=== PATIENT | male | born 1975 | race Caucasian/White ===

== ENCOUNTER 2017-01-03 09:01 | Inpatient (IN) ==
--- NOTE | 2017-01-03 09:24 | Emergency Department Note ---
Overdose - [facility] Narrative Medical decision making narrative: 41-year-old male initially unresponsive, found to have severe sepsis with lactate 2.1, tachycardia, leukocytosis, source being upper lobe pneumonia, patient was given a 30 mL for kg bolus, repeat cardiovascular assessment was obtained a severe sepsis assessment was obtained, demonstrating fluid responsiveness, no dictation for vasopressors, patient was started on empiric broad-spectrum antibiotics and stabilized the emergency department excepted by the hospitalist for admission - Differential Diagnosis Likely: cocaine intoxication - Medical Records Medical records reviewed: Yes I reviewed the patient's medical records. - Lab Data Lab results reviewed: Yes I reviewed the patient's lab results. Result diagrams: 01/03/17 09:32 01/03/17 09:32 Lab Results 01/03/17 01/03/17 01/03/17 Range/Units 09:32 09:32 09:32 WBC 12.3 H (4.3-11.1) K/mcL RBC 5.32 (4.19-5.50) M/mcL Hgb 16.0 (12.9-16.9) g/dL Hct 48.8 (37.5-50.1) % MCV 91.7 (83.0-100.0) fL MCH 30.1 (28.0-33.3) pg MCHC 32.8 (31.6-35.5) g/dL RDW 12.4 (11.5-14.5) % Plt Count 285 (140-400) K/mcL MPV 10.5 (9.4-12.4) fL Immature Gran % 0.7 (0-4) % Seg Neutrophils % 81.2 % Lymphocytes % 12.2 % Monocytes % 5.1 % Eosinophils % 0.3 % Basophils % 0.5 % Neutrophils # 10.0 H (1.6-8.9) K/mcL Lymphocytes # 1.5 (0.6-4.6) K/mcL Monocytes # 0.6 (0.0-1.3) K/mcL Eosinophils # 0.0 (0.0-0.6) K/mcL Basophils # 0.1 (0.0-0.2) K/mcL Immature Plt Fraction 6.4 H (1.1-6.1) % Carboxyhemoglobin (0-5) % Sodium 143 (136-145) mEq/L Potassium 4.4 (3.5-4.5) mEq/L Chloride 107 (98-109) mEq/L Carbon Dioxide 28 (19-29) mEq/L BUN 8 (8-26) mg/dL Creatinine 1.36 H (0.72-1.25) mg/dL Est GFR ( Amer) > 60 (> 60) Est GFR (Non-Af Amer) 58 L (> 60) BUN/Creatinine Ratio 6 (6-26) Glucose 188 H (70-99) mg/dL POC Glucose (58-89) Calculated Osmolality 299 (280-300) Lactic Acid 2.1 (0.5-2.2) mmol/L Calcium 8.6 (8.6-10.8) mg/dL Total Bilirubin 0.4 (0.2-1.2) mg/dL Direct Bilirubin 0.1 (0.0-0.5) mg/dL Indirect Bilirubin 0.3 (0.0-1.2) mg/dL AST 25 (5-34) Units/L ALT 22 (0-55) Units/L Alkaline Phosphatase 137 H (38-126) Units/L Troponin I (0-0.03) ng/mL Serum Total Protein 7.2 (6.0-8.3) g/dL Albumin 3.6 (3.5-5.0) g/dL Globulin 3.6 H (2.4-3.5) g/dL Albumin/Globulin Ratio 1.0 L (1.1-2.2) Urine Color (Yellow) Urine Clarity (Clear) Urine pH (5.0-8.0) pH Units Ur Specific [place] (1.010-1.025) Urine Protein (Neg-Trace) mg/dL Urine Glucose (UA) (Normal) mg/dL Urine Ketones (Negative) mg/dL Urine Blood (Negative) Urine Nitrite (Negative) Urine Bilirubin (Negative) Urine Urobilinogen (Normal) mg/dL Ur Leukocyte Esterase (Negative) Urine Microscopic RBC (0-3) per hpf Urine Microscopic WBC (0-3) per hpf Ur Squamous Epith Cells (None-Few) per lpf Urine Bacteria (None-Few) per hpf Hyaline Casts (None-Few) per lpf Salicylates < 5.0 L (15-30) mg/dL Urine Opiates Screen (Gihots=326) ng/mL Acetaminophen < 1.0 L (10-30) mcg/mL Ur Barbiturates Screen (Sfilgv=277) ng/mL Ur Phencyclidine Scrn (Cutoff=25) ng/mL Ur Amphetamines Screen (Dtruwh=6544) ng/mL U Benzodiazepines Scrn (Yrmhfz=087) ng/mL Urine Cocaine Screen (Cutoff= 300) ng/mL U Marijuana (THC) Screen (Cutoff = 50) ng/mL Ethyl Alcohol < 10 (0-10) mg/dL 01/03/17 01/03/17 01/03/17 Range/Units 09:32 09:32 10:23 WBC (4.3-11.1) K/mcL RBC (4.19-5.50) M/mcL Hgb (12.9-16.9) g/dL Hct (37.5-50.1) % MCV (83.0-100.0) fL MCH (28.0-33.3) pg MCHC (31.6-35.5) g/dL RDW (11.5-14.5) % Plt Count (140-400) K/mcL MPV (9.4-12.4) fL Immature Gran % (0-4) % Seg Neutrophils % % Lymphocytes % % Monocytes % % Eosinophils % % Basophils % % Neutrophils # (1.6-8.9) K/mcL Lymphocytes # (0.6-4.6) K/mcL Monocytes # (0.0-1.3) K/mcL Eosinophils # (0.0-0.6) K/mcL Basophils # (0.0-0.2) K/mcL Immature Plt Fraction (1.1-6.1) % Carboxyhemoglobin 2.7 (0-5) % Sodium (136-145) mEq/L Potassium (3.5-4.5) mEq/L Chloride (98-109) mEq/L Carbon Dioxide (19-29) mEq/L BUN (8-26) mg/dL Creatinine (0.72-1.25) mg/dL Est GFR ( Amer) (> 60) Est GFR (Non-Af Amer) (> 60) BUN/Creatinine Ratio (6-26) Glucose (70-99) mg/dL POC Glucose 120 H (58-89) Calculated Osmolality (280-300) Lactic Acid (0.5-2.2) mmol/L Calcium (8.6-10.8) mg/dL Total Bilirubin (0.2-1.2) mg/dL Direct Bilirubin (0.0-0.5) mg/dL Indirect Bilirubin (0.0-1.2) mg/dL AST (5-34) Units/L ALT (0-55) Units/L Alkaline Phosphatase (38-126) Units/L Troponin I 0.06 H* (0-0.03) ng/mL Serum Total Protein (6.0-8.3) g/dL Albumin (3.5-5.0) g/dL Globulin (2.4-3.5) g/dL Albumin/Globulin Ratio (1.1-2.2) Urine Color (Yellow) Urine Clarity (Clear) Urine pH (5.0-8.0) pH Units Ur Specific [place] (1.010-1.025) Urine Protein (Neg-Trace) mg/dL Urine Glucose (UA) (Normal) mg/dL Urine Ketones (Negative) mg/dL Urine Blood (Negative) Urine Nitrite (Negative) Urine Bilirubin (Negative) Urine Urobilinogen (Normal) mg/dL Ur Leukocyte Esterase (Negative) Urine Microscopic RBC (0-3) per hpf Urine Microscopic WBC (0-3) per hpf Ur Squamous Epith Cells (None-Few) per lpf Urine Bacteria (None-Few) per hpf Hyaline Casts (None-Few) per lpf Salicylates (15-30) mg/dL Urine Opiates Screen (Bktqch=926) ng/mL Acetaminophen (10-30) mcg/mL Ur Barbiturates Screen (Kbcigt=049) ng/mL Ur Phencyclidine Scrn (Cutoff=25) ng/mL Ur Amphetamines Screen (Ickqjo=2043) ng/mL U Benzodiazepines Scrn (Yffqwu=724) ng/mL Urine Cocaine Screen (Cutoff= 300) ng/mL U Marijuana (THC) Screen (Cutoff = 50) ng/mL Ethyl Alcohol (0-10) mg/dL 01/03/17 01/03/17 01/03/17 Range/Units 12:26 12:26 14:23 WBC (4.3-11.1) K/mcL RBC (4.19-5.50) M/mcL Hgb (12.9-16.9) g/dL Hct (37.5-50.1) % MCV (83.0-100.0) fL MCH (28.0-33.3) pg MCHC (31.6-35.5) g/dL RDW (11.5-14.5) % Plt Count (140-400) K/mcL MPV (9.4-12.4) fL Immature Gran % (0-4) % Seg Neutrophils % % Lymphocytes % % Monocytes % % Eosinophils % % Basophils % % Neutrophils # (1.6-8.9) K/mcL Lymphocytes # (0.6-4.6) K/mcL Monocytes # (0.0-1.3) K/mcL Eosinophils # (0.0-0.6) K/mcL Basophils # (0.0-0.2) K/mcL Immature Plt Fraction (1.1-6.1) % Carboxyhemoglobin (0-5) % Sodium (136-145) mEq/L Potassium (3.5-4.5) mEq/L Chloride (98-109) mEq/L Carbon Dioxide (19-29) mEq/L BUN (8-26) mg/dL Creatinine (0.72-1.25) mg/dL Est GFR ( Amer) (> 60) Est GFR (Non-Af Amer) (> 60) BUN/Creatinine Ratio (6-26) Glucose (70-99) mg/dL POC Glucose (58-89) Calculated Osmolality (280-300) Lactic Acid 1.7 (0.5-2.2) mmol/L Calcium (8.6-10.8) mg/dL Total Bilirubin (0.2-1.2) mg/dL Direct Bilirubin (0.0-0.5) mg/dL Indirect Bilirubin (0.0-1.2) mg/dL AST (5-34) Units/L ALT (0-55) Units/L Alkaline Phosphatase (38-126) Units/L Troponin I (0-0.03) ng/mL Serum Total Protein (6.0-8.3) g/dL Albumin (3.5-5.0) g/dL Globulin (2.4-3.5) g/dL Albumin/Globulin Ratio (1.1-2.2) Urine Color Yellow (Yellow) Urine Clarity Clear (Clear) Urine pH 6.0 (5.0-8.0) pH Units Ur Specific [place] 1.021 (1.010-1.025) Urine Protein Trace (Neg-Trace) mg/dL Urine Glucose (UA) 250 H (Normal) mg/dL Urine Ketones Negative (Negative) mg/dL Urine Blood Negative (Negative) Urine Nitrite Negative (Negative) Urine Bilirubin Negative (Negative) Urine Urobilinogen Normal (Normal) mg/dL Ur Leukocyte Esterase Negative (Negative) Urine Microscopic RBC 0-3 (0-3) per hpf Urine Microscopic WBC 3-5 H (0-3) per hpf Ur Squamous Epith Cells Many H (None-Few) per lpf Urine Bacteria None Seen (None-Few) per hpf Hyaline Casts Few (None-Few) per lpf Salicylates (15-30) mg/dL Urine Opiates Screen Positive H (Svuuma=326) ng/mL Acetaminophen (10-30) mcg/mL Ur Barbiturates Screen Negative (Jlnawn=063) ng/mL Ur Phencyclidine Scrn Negative (Cutoff=25) ng/mL Ur Amphetamines Screen Positive H (Hpweuu=5979) ng/mL U Benzodiazepines Scrn Negative (Mmkhph=218) ng/mL Urine Cocaine Screen Negative (Cutoff= 300) ng/mL U Marijuana (THC) Screen Negative (Cutoff = 50) ng/mL Ethyl Alcohol (0-10) mg/dL 01/03/17 Range/Units 15:51 WBC (4.3-11.1) K/mcL RBC (4.19-5.50) M/mcL Hgb (12.9-16.9) g/dL Hct (37.5-50.1) % MCV (83.0-100.0) fL MCH (28.0-33.3) pg MCHC (31.6-35.5) g/dL RDW (11.5-14.5) % Plt Count (140-400) K/mcL MPV (9.4-12.4) fL Immature Gran % (0-4) % Seg Neutrophils % % Lymphocytes % % Monocytes % % Eosinophils % % Basophils % % Neutrophils # (1.6-8.9) K/mcL Lymphocytes # (0.6-4.6) K/mcL Monocytes # (0.0-1.3) K/mcL Eosinophils # (0.0-0.6) K/mcL Basophils # (0.0-0.2) K/mcL Immature Plt Fraction (1.1-6.1) % Carboxyhemoglobin (0-5) % Sodium (136-145) mEq/L Potassium (3.5-4.5) mEq/L Chloride (98-109) mEq/L Carbon Dioxide (19-29) mEq/L BUN (8-26) mg/dL Creatinine (0.72-1.25) mg/dL Est GFR ( Amer) (> 60) Est GFR (Non-Af Amer) (> 60) BUN/Creatinine Ratio (6-26) Glucose (70-99) mg/dL POC Glucose (58-89) Calculated Osmolality (280-300) Lactic Acid (0.5-2.2) mmol/L Calcium (8.6-10.8) mg/dL Total Bilirubin (0.2-1.2) mg/dL Direct Bilirubin (0.0-0.5) mg/dL Indirect Bilirubin (0.0-1.2) mg/dL AST (5-34) Units/L ALT (0-55) Units/L Alkaline Phosphatase (38-126) Units/L Troponin I 0.11 H* (0-0.03) ng/mL Serum Total Protein (6.0-8.3) g/dL Albumin (3.5-5.0) g/dL Globulin (2.4-3.5) g/dL Albumin/Globulin Ratio (1.1-2.2) Urine Color (Yellow) Urine Clarity (Clear) Urine pH (5.0-8.0) pH Units Ur Specific [place] (1.010-1.025) Urine Protein (Neg-Trace) mg/dL Urine Glucose (UA) (Normal) mg/dL Urine Ketones (Negative) mg/dL Urine Blood (Negative) Urine Nitrite (Negative) Urine Bilirubin (Negative) Urine Urobilinogen (Normal) mg/dL Ur Leukocyte Esterase (Negative) Urine Microscopic RBC (0-3) per hpf Urine Microscopic WBC (0-3) per hpf Ur Squamous Epith Cells (None-Few) per lpf Urine Bacteria (None-Few) per hpf Hyaline Casts (None-Few) per lpf Salicylates (15-30) mg/dL Urine Opiates Screen (Kcaros=522) ng/mL Acetaminophen (10-30) mcg/mL Ur Barbiturates Screen (Bwacpx=650) ng/mL Ur Phencyclidine Scrn (Cutoff=25) ng/mL Ur Amphetamines Screen (Adbhmc=0076) ng/mL U Benzodiazepines Scrn (Jptslt=749) ng/mL Urine Cocaine Screen (Cutoff= 300) ng/mL U Marijuana (THC) Screen (Cutoff = 50) ng/mL Ethyl Alcohol (0-10) mg/dL Chest X-Ray 01/03/17 09:16 IMPRESSION: Patchy opacities in the right upper lung, which may represent pneumonia in the appropriate clinical setting. D/ / Mariella Rodriguez MD / Mariella Rodriguez MD Interpreting Provider: Mariella Rodriguez MD Chest CTA 01/03/17 13:15 IMPRESSION: No evidence of pulmonary embolism to the proximal segmental level. Extensive consolidative and ground-glass opacity throughout both lungs as detailed above. Findings are most compatible with multifocal pneumonia. Some of the opacities are somewhat nodular in appearance, and a follow-up examination in 10-12 weeks is recommended to document complete resolution. D/ / Deep Calderon MD / Deep Calderon MD Interpreting Provider: Deep Calderon MD - Radiology Data Radiology results reviewed: Yes I reviewed the patient's radiology results. Chest X-Ray 01/03/17 09:16 IMPRESSION: Patchy opacities in the right upper lung, which may represent pneumonia in the appropriate clinical setting. D/ / Mariella Rodriguez MD / Mariella Rodriguez MD Interpreting Provider: Mariella Rodriguez MD Chest CTA 01/03/17 13:15 IMPRESSION: No evidence of pulmonary embolism to the proximal segmental level. Extensive consolidative and ground-glass opacity throughout both lungs as detailed above. Findings are most compatible with multifocal pneumonia. Some of the opacities are somewhat nodular in appearance, and a follow-up examination in 10-12 weeks is recommended to document complete resolution. D/ / Deep Calderon MD / Deep Calderon MD Interpreting Provider: Deep Calderon MD - EKG Data EKG attestation: Yes I reviewed and interpreted this EKG. EKG results narrative: Sinus tachycardia 10 5 bpm NE 142 QRS [address] segment elevations or depressions. Rate: tachycardia [place]/QRS: normal Interpretation: no acute changes - Core Measures AMI Core Measures Followed: No Overdose HPI - General Chief Complaint: ED Overdose Stated Complaint: OD/Unresponsive Time Seen by Provider: 01/03/17 09:07 Source: patient Limitations: no limitations Nursing Notes Reviewed: Yes Vital Signs Reviewed: Yes - History of Present Illness HPI Narrative: 41-year-old male with an unresponsive episode, patient was found obtunded and altered, diaphoretic and his seat in his chair at home, EMS arrived at the scene , they did give him IV Narcan 2 mg, he had a slow response to Narcan but did ultimately become alert and oriented 3, however somewhat confused, patient uses Percocet at 30 mg the night before, but states that he does not use any pain medication today, this is partially obtained by EMS as he is alert and oriented 2 at time of ED evaluation. he denies any chest pain or abdominal pain. Patient states he is unsure when the last time that he has been awake, but he woke up, his mom saw him at approximately 5 in the morning, then he sat on the chair. She then woke him up at 8 or tried to and he was unresponsive. And she called EMS. Pt denies any drug use today, he did take a Percocet last night, but denies any IV drug use or other illicit substances this morning. Pt Subjective Complaint: intentional overdose Onset (ago): hour(s) - Related Data Home Medications Medication Instructions Recorded Confirmed Acetaminophen [Tylenol] 1,000 mg PO BID PRN 05/23/16 01/03/17 Ibuprofen [Motrin] 800 mg PO Q6HR PRN 01/03/17 01/03/17 Allergies Allergy/AdvReac Type Severity Reaction Status Date / Time Penicillins Allergy Hives Verified 11/13/16 07:49 All systems ED: reviewed and negative except as stated. Constitutional: Denies: fever, chills Cardiovascular: Denies: chest pain, palpitations Respiratory: Reports: as per HPI, dyspnea, wheezes. Denies: cough Gastrointestinal: Denies: abdominal pain, nausea Genitourinary: Denies: urgency, dysuria Musculoskeletal: Denies: back pain, neck pain Integumentary: Denies: rash Neurological: Denies: headache, weakness Past Medical History - Past Medical History Attestation: Yes The following information was validated with the patient. Source: patient Medical history: Reports: no medical history Surgical history: Reports: orthopedic, other, other Psychiatric history: Reports: anxiety, depression, other - Social History Smoking Status: Never smoker Smokeless Tobacco Status: No Alcohol use: Reports: occasionally Drug use: Reports: cocaine, opiates, methamphetamine, prescription drug abuse, other Physical Exam Constitutional: Pt is alert and oriented 2, hypoxic. Lethargic sats 80% on RA HEENT: NCAT, sclera anicteric Neck: normal inspection, neck is supple, trachea midline Resp: Patient is short of breath and tachypneic. CV: RRR, no m/g/r GI: normal inspection, Soft, NTND, BS present Back: normal inspection, no tenderness to palpation Neuro: A&O2, no gross motor or sensory deficits bilaterally MSK: normal inspection, bilateral UE and LE with normal ROM Skin: No rashes, skin warm, dry, intact - General Limitations: no limitations General appearance: alert, lethargic Course Course Narrative: 41-year-old male with unresponsive on ED presentation, there is a concern for possible overdose as he did have an indeterminate response to Narcan IV 2 mg was given by EMS, however the patient now presents with hypoxia, satting 80% on room air, will check a blood gas, basic lab work CBC, hepatic panel, for altered mental status workup, chest x-ray head CT and reassess. - Reevaluation(s) Reevaluation #1: Even though the patient initially presented as an overdose, EMS did state that he was found diaphoretic and sweaty, he does have a elevated troponin and lactate of 2.1 he also has a patchy opacity concerning for pneumonia, with an elevated white count therefore at this time 11:36 recognizing severe sepsis, will start at 30 mL/kg 3000 cc bolus, blood cultures prior to lactate and draw a repeat lactate prior to the reassessment. Reevaluation #2: A reevaluation, the patient was performed, capillary refill, vital signs, peripheral perfusion, peripheral pulses, skin exam, vital signs, cardiopulmonary exam, were performed, demonstrated fluid responsiveness, as the hospitalist service, a CT was also added given hypoxia, the patient will be an ED hold at this time. Time: 13:30 Vital Signs Temperature 98.7 F 01/03/17 09:07 Pulse Rate 106 01/03/17 09:07 Respiratory Rate 10 01/03/17 09:07 Blood Pressure 124/88 01/03/17 09:07 O2 Sat by Pulse Oximetry 94 01/03/17 09:07 Temperature 98.7 F 01/03/17 09:07 Pulse Rate 112 01/03/17 15:51 Respiratory Rate 16 01/03/17 17:09 Blood Pressure 118/66 01/03/17 17:09 O2 Sat by Pulse Oximetry 96 01/03/17 15:51 Oxygen Delivery Oxygen Delivery Nasal Cannula Disposition Clinical Impression: CAP (community acquired pneumonia), Hypoxia, Unresponsive episode, Severe sepsis, Elevated troponin I level Disposition: Admitted As Inpatient Condition: Good Time of Disposition: 13:19
[2017-01-03 09:39] LABS: Basophils # 0.1 K/mcL (0.0-0.2); Basophils % 0.5 %; Eosinophils % 0.3 %; Hematocrit 48.8 % (37.5-50.1); Immature Granulocytes % 0.7 % (0-4); Immature Platelets 6.4 % (1.1-6.1); Lymphocytes # 1.5 K/mcL (0.6-4.6); Lymphocytes % 12.2 %; Mean Corpuscular HGB Conc 32.8 g/dL (31.6-35.5); Mean Corpuscular Hemoglobin 30.1 pg (28.0-33.3); Mean Corpuscular Volume 91.7 fL (83.0-100.0); Mean Platelet Volume 10.5 fL (9.4-12.4); Monocytes # 0.6 K/mcL (0.0-1.3); Monocytes % 5.1 %; Platelet Count 285 K/mcL (140-400); Red Blood Count 5.32 M/mcL (4.19-5.50); Red Cell Distribution Width 12.4 % (11.5-14.5); Segmented Neutrophils % 81.2 %
[2017-01-03 09:57] LABS: Alanine Aminotransferase 22 Units/L (0-55); Albumin 3.6 g/dL (3.5-5.0); Alkaline Phosphatase 137 Units/L (38-126); Aspartate Amino Transferase 25 Units/L (5-34); BUN/Creatinine Ratio 6 (6-26); Bilirubin,Direct 0.1 mg/dL (0.0-0.5); Bilirubin,Indirect 0.3 mg/dL (0.0-1.2); Bilirubin,Total 0.4 mg/dL (0.2-1.2); Blood Urea Nitrogen 8 mg/dL (8-26); Calcium 8.6 mg/dL (8.6-10.8); Carbon Dioxide 28 mEq/L (19-29); Chloride 107 mEq/L (98-109); Globulin 3.6 g/dL (2.4-3.5); Glucose 188 mg/dL (70-99); Osmolality,Calculated 299 (280-300); Potassium 4.4 mEq/L (3.5-4.5); Sodium 143 mEq/L (136-145); Total Protein 7.2 g/dL (6.0-8.3); eGFR For African Americans > 60 (> 60); eGFR For Non-African Americans 58 (> 60)
[2017-01-03 09:59] LABS: Acetaminophen < 1.0 mcg/mL (10-30); Ethanol < 10 mg/dL (0-10); Salicylate < 5.0 mg/dL (15-30)
[2017-01-03] MEDS ORDERED: Aspirin 81 MG TAB.CHEW PO ONE (11:07)
[2017-01-03] MEDS ORDERED: Levofloxacin 750 MG/150 ML 750 MG/150 ML BAG IVPB ONE (11:37)
[2017-01-03] MEDS ORDERED: 0.9 % Sodium Chloride 1,000 ML IVC ONE ×3 (11:47→12:03)
--- NOTE | 2017-01-03 11:47 | Emergency Department Note ---
START Narrative - START START: I examined this patient and my medical decision-making was reviewed with the RECREATION OFFICER/PA/Advanced Practice Nurse/Resident Physician. I agree with the documented findings, disposition and treatment plan as described except to the extent set forth below. Patient to ED with altered mental status. He sits mom states he was fine at 5 AM. When she got up later he was unresponsive on the couch. Diaphoretic. Family thinks he is extremely stressed out. Patient denies drug abuse. There was some report that he abuses oxycodone. On examination he is awake and alert. He is hypoxic requiring nonrebreather. Plan. The patient has an infiltrate on his chest x-ray. Unclear if the patient did have some type of opioid overdose with aspiration. He did respond to Narcan per medics. Patient will be treated for septic shock. Admitted to medicine. 35 minutes of critical care exclusive of separately billable procedures.
[2017-01-03] MEDS: 0.9 % Sodium Chloride 1,000 ML IVC SCH ×4 (12:05→20:48)
[2017-01-03 12:35] LABS: Bilirubin,Urine Negative (Negative); Blood,Urine Negative (Negative); Clarity,Urine Clear (Clear); Color,Urine Yellow (Yellow); Glucose,Urine (UA) 250 mg/dL (Normal); Ketones,Urine Negative (Negative); Leukocyte Esterase,Urine Negative (Negative); Nitrite,Urine Negative (Negative); Protein,Urine Trace mg/dL (Neg-Trace); Specific Gravity,Urine 1.021 (1.010-1.025); Urobilinogen,Urine Normal (Normal)
[2017-01-03 12:37] LABS: Bacteria,Urine None Seen per hpf (None-Few); Hyaline Casts,Urine Few per lpf (None-Few); RBC,Urine 0-3 per hpf (0-3); Squamous Epithelial Cell,Urine Many per lpf (None-Few)
[2017-01-03 12:41] LABS: Amphetamine Screen,Urine Positive ng/mL (Cutoff=1000); Barbiturate Screen,Urine Negative ng/mL (Cutoff=200); Benzodiazepines Screen,Urine Negative ng/mL (Cutoff=200); Cannabinoid Screen,Urine Negative ng/mL (Cutoff = 50); Cocaine Screen,Urine Negative ng/mL (Cutoff= 300); Opiate Screen,Urine Positive ng/mL (Cutoff=300); Phencyclidine Screen,Urine Negative ng/mL (Cutoff=25)
[2017-01-03] MEDS ORDERED: Ketorolac 30 MG/ML VIAL IVP ONE (13:16)
[2017-01-03] MEDS ORDERED: *HR* LORazepam 2 MG/ML VIAL IVP ONE (13:16)
[2017-01-03] MEDS ORDERED: Naloxone 0.4 MG/ML INJ IVP PRN (14:11)
--- NOTE | 2017-01-03 14:55 | Internal Med History&Physical ---
<Grace Al - Last Filed: 01/03/17 17:34> Date of Encounter: 01/03/17 Time of Encounter: 14:00 Assessment and Plan (1) Severe sepsis Current visit: Yes Status: Acute 1 patient presented with tachycardia hypoxia and leukocytosis elevated lactate sources pneumonia. Patient was given IV fluids 30 mL per kilogram bolus blood cultures were obtained we will continue with Levaquin will add clindamycin suspect aspiration pneumonia 2 we will continue with IV fluids 3 obtain sputum culture 4 monitor intake and output daily weights 5 cardiac monitoring 6 maintain M AP greater than 60 (2) Aspiration pneumonia Current visit: Yes Status: Acute 1 patient was found unresponsive positive for opiates and amphetamines. Patient does admit to taking Percocets. Aroused with Narcan. He was tachycardic and hypoxic with leukocytosis. Chest x-ray patchy opacities in his right upper lobe suspicious for pneumonia. Suspect patient possibly aspirated during overdose. We will continue with Levaquin and add clindamycin 2 oxygen maintain SPO2 greater than 92%-weaned to room air 3 sputum culture Qualifiers: Aspiration pneumonia type: unspecified Laterality: right Lung location: upper lobe of lung Qualified Code(s): J69.0 - Pneumonitis due to inhalation of food and vomit (3) Drug overdoses Current visit: Yes Status: Acute 1 patient does admit to polysubstance use. He was positive for opiates and amphetamines. He also admits to previous use of cocaine approximately a month ago. He states that he took 1 Percocet last night he was unarousable this morning. Patient's family voiced that they do not believe he overdosed that was related to carbon monoxide poisoning. His carboxy hemoglobin was 2.7. We will place patient on aspiration precautions 2 fall precautions 3 social service consult-possible rehabilitation placement Qualifiers: Encounter type: initial encounter Injury intent: accidental or unintentional Qualified Code(s): T50.901A - Poisoning by unspecified drugs, medicaments and biological substances, accidental (unintentional), initial encounter (4) Elevated troponin I level Current visit: Yes Status: Acute 1 patient's first troponin was 0.06. most likely demand ischemia He denies any previous chest pain however he has chest pain with cough. EKG with no ST-T wave abnormalities. We will obtain cardiac echo continue to trend troponins. Patient does have a history of cocaine use-states last used approximately a month ago 2 cardiac echo (5) DVT prophylaxis Current visit: Yes Status: Acute Internal Medicine - H&P: HPI Chief complaint: OD Admitted From: Emergency Dept Plans for Post Hospital Care: Home History of present illness: Mr. Mehta is a 41 year old male with no past medical history. The patient's mother he was out approximately 5 AM appropriate and alert. She went to bed and approximately 8 PM she found him in a reclining chair unresponsive to verbal tactile stimuli cyanotic and cool and clammy with blowing respirators. EMS was notified and upon their arrival they can administer Narcan patient did arouse he admitted to taking 1 Percocet 30 early in the morning. He then became groggy second round of Narcan was given patient more arousable. Upon arrival to ER patient's oxygen saturation was 80% on room air he was placed on nonrebreather. Labwork was obtained which revealed some leukocytosis at 12.3 creatinine was 1.362 458 lactate was 2.1 troponin was 0.06. Tox screen was positive for opiates and amphetamines. Chest x-ray revealed patchy the patient needs a right upper lobe rental representative of pneumonia. Patient did meet sepsis criteria for cultures have been obtained he was given IV fluids Levaquin and Rocephin. He has been admitted for further workup evaluation. Presently the patient appears groggy he does arouse to verbal stimuli. He answers questions appropriately and follows simple commands. He is oriented 3. Heart sounds are regular with no rubs clicks gallops or murmurs noted he is sinus tach on monitor. Lung sounds with coarse rhonchi right upper and lower lobe. No peripheral edema noted. He does not appear to be in any respiratory distress at this time. He does complain of midsternal chest pain during cough pain is reproducible. I reviewed his case with Dr Santillan Past Med Surg Social Fam HX - Past Medical History Medical history: no medical history Psychiatric history: anxiety, depression, other - Past Surgical History Surgical History: orthopedic, other, other - Social History Smoking Status: Never smoker Smokeless Tobacco Status: No Alcohol use: occasionally Drug use: cocaine, opiates, methamphetamine, prescription drug abuse, other - Family History Mother Hx Family Endocrine Disorder: Yes (DM) Internal Medicine - H&P: Meds Acetaminophen [Tylenol] 1,000 mg PO BID PRN 05/23/16 [History] Ibuprofen [Motrin] 800 mg PO Q6HR PRN 01/03/17 [History] Allergies Penicillins Allergy (Verified 11/13/16 07:49) Hives All Systems PM: A 10-system review of systems was performed and is negative for pertinent findings except as documented above in the HPI. - Constitutional Constitutional: no chills, no fever(s), no night sweats - EENT Eyes: no change in vision, no discharge, no pain, no photophobia Ears: no ear discharge, no ear pain, no tinnitus Nose, mouth and throat: no dysphagia, no nasal discharge, no neck pain, no sore throat - Cardiovascular Cardiovascular ROS IM: chest pain - Respiratory Respiratory: cough, pain on inspiration, pain with cough - Gastrointestinal Gastrointestinal: no abdominal pain, no diarrhea, no hematemesis, no hematochezia, no melena, no nausea, no vomiting - Musculoskeletal Musculoskeletal ROS IM: no numbness, no tingling - Integumentary Integumentary IM: no rash, no unusual bruising - Neurological Neurological ROS: no confusion, no convulsions, no focal weakness, no numbness, no tingling, no tremor(s) - Hematologic/Lymphatic Hematologic/Lymphatic: no easy bruising - Constitutional Vitals: Temp Pulse Resp BP Pulse Ox 98.7 F 99 16 129/80 100 01/03/17 09:07 01/03/17 14:14 01/03/17 14:14 01/03/17 14:14 01/03/17 14:14 General appearance: Present: A&O X 3 - Head Head exam: Present: atraumatic, normocephalic - Eye Eye exam: Present: PERRL, conjuntiva pink, sclera anicteric Pupils: Present: PERRL - Neck Neck exam general surgery: Present: supple, trachea midline. Absent: lymphadenopathy - Respiratory Respiratory exam: Present: rhonchi. Absent: accessory muscle use, rales, wheezes - Cardiovascular Cardiovascular exam: Present: RRR, +S1, +S2. Absent: diastolic murmur, gallop, rubs, systolic murmur - GI/Abdominal GI/Abdominal exam: Present: normal bowel sounds, soft, no peritoneal signs. Absent: distended, tenderness - Extremities Exam Extremities exam: Present: warm, radial pulses palpable and symetrical. Absent : calf tenderness, cyanotic, pedal edema - Neurological Exam Neurological exam: Present: CN II-XII intact, oriented X3, no focal deficits. Absent: pronater drift, facial droop, speech deficit - Skin Skin exam: Present: dry, intact Internal Med - H&P Results - Labs CBC & Chem 7: 01/03/17 09:32 01/03/17 09:32 Labs: Short CBC 01/03/17 Range/Units 09:32 WBC 12.3 H (4.3-11.1) K/mcL Hgb 16.0 (12.9-16.9) g/dL Hct 48.8 (37.5-50.1) % Plt Count 285 (140-400) K/mcL Neutrophils # 10.0 H (1.6-8.9) K/mcL BMP 01/03/17 09:32 Sodium 143 Potassium 4.4 Chloride 107 Carbon Dioxide 28 BUN 8 Creatinine 1.36 H Glucose 188 H Calcium 8.6 Cardiac Enzymes 01/03/17 Range/Units 09:32 Troponin I 0.06 H* (0-0.03) ng/mL Liver Function 01/03/17 Range/Units 09:32 Total Bilirubin 0.4 (0.2-1.2) mg/dL Direct Bilirubin 0.1 (0.0-0.5) mg/dL AST 25 (5-34) Units/L ALT 22 (0-55) Units/L Alkaline Phosphatase 137 H (38-126) Units/L Albumin 3.6 (3.5-5.0) g/dL Urine 01/03/17 Range/Units 12:26 Urine Color Yellow (Yellow) Urine Clarity Clear (Clear) Urine pH 6.0 (5.0-8.0) pH Units Ur Specific [place] 1.021 (1.010-1.025) Urine Protein Trace (Neg-Trace) mg/dL Urine Glucose (UA) 250 H (Normal) mg/dL - EKG Data EKG shows normal: sinus rhythm - Impressions ITS Impressions Chest X-Ray 01/03/17 09:16 IMPRESSION: Patchy opacities in the right upper lung, which may represent pneumonia in the appropriate clinical setting. D/ / Mariella Rodriguez MD / Mariella Rodriguez MD Interpreting Provider: Mariella Rodriguez MD Chest CTA 01/03/17 13:15 IMPRESSION: No evidence of pulmonary embolism to the proximal segmental level. Extensive consolidative and ground-glass opacity throughout both lungs as detailed above. Findings are most compatible with multifocal pneumonia. Some of the opacities are somewhat nodular in appearance, and a follow-up examination in 10-12 weeks is recommended to document complete resolution. D/ / 01/03/2017 14:23:49 Deep Calderon MD / cesar Interpreting Provider: Deep Calderon MD - Diagnostic Studies Other Images Additional comments: Chest X-Ray 01/03/17 09:16 IMPRESSION: Patchy opacities in the right upper lung, which may represent pneumonia in the appropriate clinical setting. D/ / Mariella Rodriguez MD / Mariella Rodriguez MD Interpreting Provider: Mariella Rodriguez MD Chest CTA 01/03/17 13:15 IMPRESSION: No evidence of pulmonary embolism to the proximal segmental level. Extensive consolidative and ground-glass opacity throughout both lungs as detailed above. Findings are most compatible with multifocal pneumonia. Some of the opacities are somewhat nodular in appearance, and a follow-up examination in 10-12 weeks is recommended to document complete resolution. D/ : / 01/03/2017 14:23:49 Deep Calderon MD / cesar Interpreting Provider: Deep Calderon MD <Kwabena Stover - Last Filed: 01/03/17 18:16> Date of Encounter: 01/03/17 Time of Encounter: 14:45 Internal Medicine - H&P: HPI History of present illness: Mr. Mehta is a 41 year old male All Systems PM: A 10-system review of systems was performed and is negative for pertinent findings except as documented above in the HPI. - Constitutional Vitals: Temp Pulse Resp BP Pulse Ox 97.7 F 95 18 124/79 95 01/03/17 17:14 01/03/17 17:14 01/03/17 17:14 01/03/17 17:14 01/03/17 17:25 Internal Med - H&P Results - Labs CBC & Chem 7: 01/03/17 09:32 01/03/17 09:32 - Attending Attestation I examined this patient and my medical decision-making was reviewed with the nurse practitioner. I agree with the documented history of present illness, review of systems, past medical, surgical social and family histories and examination findings, disposition and treatment plan as described above except to any changes set forth below. 41-year-old male patient with history of substance abuse presented with complaints of decreased responsiveness since this morning. Chest x-ray shows right-sided pneumonia which is multifocal. Concern for aspiration pneumonia/ community-acquired pneumonia. Patient is also hypoxic. On examination, patient has coarse breath sounds in right lung. S1 and S2 are normal. No pedal edema. Acute hypoxemic respiratory failure: Due to pneumonia. We will treat with O2 supplementation. Monitor vital signs closely. High risk for complications. Sepsis from pneumonia: We will treat with IV antibiotics. Follow blood cultures. Pneumonia likely from aspiration/community-acquired pneumonia with strep pneumo : We will treat with IV antibiotics. Follow culture results. O2 supplementation. Substance abuse: At risk for withdrawal. We will monitor for withdrawal symptoms. 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 Troponin elevation: Be related to demand ischemia. We will get 2-D echocardiogram for further evaluation. Trend troponins. Keep patient on telemetry. No chest pain.
--- NOTE | 2017-01-03 15:47 | Electrocardiograph Report ---
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
[2017-01-03] MEDS: Clindamycin 600 MG/50 ML 600 MG/50 ML IV.SOLN IVPB SCH (20:48)
[2017-01-03] MEDS: *HR* Heparin 5,000 UNIT/ML VIAL SQ SCH (20:50)
[2017-01-03] MEDS: Lactobacillus 1 EACH CAP.SPRINK PO SCH (20:50)
[2017-01-04] MEDS ORDERED: Acetaminophen 325 MG TABLET PO ONE (00:14)
[2017-01-04] MEDS: Clindamycin 600 MG/50 ML 600 MG/50 ML IV.SOLN IVPB SCH ×2 (01:19→08:31)
[2017-01-04] MEDS: 0.9 % Sodium Chloride 1,000 ML IVC SCH (05:31)
[2017-01-04] MEDS: *HR* Heparin 5,000 UNIT/ML VIAL SQ SCH ×2 (05:32→17:17)
[2017-01-04 06:31] LABS: Basophils % 0.2 %; Eosinophils # 0.1 K/mcL (0.0-0.6); Eosinophils % 0.3 %; Hematocrit 42.1 % (37.5-50.1); Immature Granulocytes % 0.4 % (0-4); Immature Platelets 7.4 % (1.1-6.1); Lymphocytes # 2.5 K/mcL (0.6-4.6); Lymphocytes % 12.4 %; Mean Corpuscular Hemoglobin 30.2 pg (28.0-33.3); Mean Corpuscular Volume 91.5 fL (83.0-100.0); Mean Platelet Volume 11.1 fL (9.4-12.4); Monocytes % 5.1 %; Neutrophils # 16.4 K/mcL (1.6-8.9); Platelet Count 179 K/mcL (140-400); Red Cell Distribution Width 12.6 % (11.5-14.5); Segmented Neutrophils % 81.6 %
[2017-01-04 06:36] LABS: Hemoglobin 13.9 g/dL (12.9-16.9)
[2017-01-04 06:45] LABS: BUN/Creatinine Ratio 10 (6-26); Blood Urea Nitrogen 9 mg/dL (8-26); Calcium 7.7 mg/dL (8.6-10.8); Carbon Dioxide 19 mEq/L (19-29); Chloride 110 mEq/L (98-109); Chol/HDL Ratio 2.7 (0-4.9); Cholesterol 109 mg/dL (< 200); Glucose 94 mg/dL (70-99); HDL Cholesterol 40 mg/dL (40-59); LDL Cholesterol,Calculated 51 mg/dL (0-99); Magnesium 1.5 mg/dL (1.6-2.6); Osmolality,Calculated 280 (280-300); Potassium 4.8 mEq/L (3.5-4.5); Sodium 136 mEq/L (136-145); Triglycerides 89 mg/dL (< 150); eGFR For African Americans > 60 (> 60); eGFR For Non-African Americans > 60 (> 60)
[2017-01-04] MEDS: Lactobacillus 1 EACH CAP.SPRINK PO SCH ×2 (08:31→20:30)
[2017-01-04] MEDS: Pantoprazole 40 MG VIAL IVP SCH (08:31)
[2017-01-04] MEDS: Levofloxacin 750 MG/150 ML 750 MG/150 ML BAG IVPB SCH (08:32)
[2017-01-04] MEDS ORDERED: Magnesium Sulfate 2 GM in D5% in Water 100 ML IVPB ONE (09:27)
--- NOTE | 2017-01-04 09:32 | Internal Med Progress Note ---
<Serafin Cancino - Last Filed: 01/04/17 09:29> Date of Encounter: 01/04/17 Time of Encounter: 09:29 - Assessment and plan (1) Severe sepsis Current Visit: Yes Status: Acute Assessment and plan: Patient presented with leukocytosis, tachycardia, acute kidney injury with presumed source to be pneumonia. Patient was given 30 mL/kg fluid bolus and maintenance fluid has been continued, initial lactate was 2.1, repeat was 1.7. Blood cultures are been drawn, antibiotics and been initiated. Continue to monitor. (2) Pneumonia Current Visit: Yes Status: Acute Assessment and plan: Patient has multifocal pneumonia on CT scan. Given the patient's history for drug abuse there is a concern for aspiration pneumonia or possibly septic emboli. Continue antibiotics, we will attempt to obtain a sputum culture, blood cultures pending. Given the concern for septic emboli in the setting of infective endocarditis we will obtain a TTE and if that is negative will likely obtain a CHANTE. Qualifiers: Pneumonia type: due to unspecified organism Laterality: bilateral Lung location: unspecified part of lung Qualified Code(s): J18.9 - Pneumonia, unspecified organism (3) Drug abuse Current Visit: Yes Status: Acute Assessment and plan: Patient has a history of drug abuse but denies any IV use, however patient has used in the past. Patient reports taking 1 Percocet last night but denies any other drug use. Drug screen is positive for opiates and amphetamines. (4) DVT prophylaxis Current Visit: Yes Status: Acute Assessment and plan: Heparin 5000 units subcutaneous twice a day. - Subjective Interval history: Patient seen and examined at bedside. Patient states that he feels slightly better today. He does still report cough with some chest pain associated with his cough. He reports chills but denies fevers. He reports reproduction with this cough. - Constitutional Vitals: Temp Pulse Resp BP Pulse Ox 97.4 F L 105 15 117/73 98 01/04/17 06:19 01/04/17 06:19 01/04/17 06:19 01/04/17 06:19 01/04/17 08:09 General appearance: Present: A&O X 3, pleasant, no acute distress - Respiratory Respiratory exam: Present: rhonchi (Diffuse). Absent: respiratory distress, wheezes, tachypnea - Cardiovascular Cardiovascular exam: Present: tachycardia. Absent: diastolic murmur, gallop, rubs, systolic murmur - GI/Abdominal GI/Abdominal exam: Present: normal bowel sounds, soft. Absent: distended, tenderness - Extremities Exam Extremities exam: Present: warm. Absent: pedal edema, tenderness Additional comments: No splinter hemorrhages, [place] lesions, [place] nodes noted. - Neurological Exam Neurological exam: Present: alert, CN II-XII intact, oriented X3, no focal deficits Internal Medicine: Result - Labs CBC & Chem 7: 01/04/17 06:22 01/04/17 06:22 Labs: Short CBC 01/04/17 Range/Units 06:22 WBC 20.1 H D (4.3-11.1) K/mcL Hgb 13.9 D (12.9-16.9) g/dL Hct 42.1 (37.5-50.1) % Plt Count 179 (140-400) K/mcL Neutrophils # 16.4 H (1.6-8.9) K/mcL BMP 01/04/17 06:22 Sodium 136 Potassium 4.8 H Chloride 110 H Carbon Dioxide 19 BUN 9 Creatinine 0.88 Glucose 94 Calcium 7.7 L Cardiac Enzymes 01/03/17 Range/Units 21:59 Troponin I 0.08 H* (0-0.03) ng/mL Consult Discharge Plan - Plan Referrals: NO,PCP [Primary Care Provider] - <Aldo Haley P - Last Filed: 01/04/17 12:41> Date of Encounter: 01/04/17 - Constitutional Vitals: Temp Pulse Resp BP Pulse Ox 97.5 F L 108 15 122/79 94 01/04/17 11:00 01/04/17 11:00 01/04/17 11:00 01/04/17 11:00 01/04/17 11:00 Internal Medicine: Result - Labs CBC & Chem 7: 01/04/17 06:22 01/04/17 06:22 Labs: Short CBC 01/04/17 Range/Units 06:22 WBC 20.1 H D (4.3-11.1) K/mcL Hgb 13.9 D (12.9-16.9) g/dL Hct 42.1 (37.5-50.1) % Plt Count 179 (140-400) K/mcL Neutrophils # 16.4 H (1.6-8.9) K/mcL BMP 01/04/17 06:22 Sodium 136 Potassium 4.8 H Chloride 110 H Carbon Dioxide 19 BUN 9 Creatinine 0.88 Glucose 94 Calcium 7.7 L Cardiac Enzymes 01/03/17 Range/Units 21:59 Troponin I 0.08 H* (0-0.03) ng/mL - Attending Attestation I examined this patient and my medical decision-making was reviewed with the VAMP CREASER/PA/Advanced Practice Nurse/Resident Physician. I agree with the documented findings, disposition and treatment plan as described except to the extent set forth below.
[2017-01-04] MEDS: Vancomycin 1,500 MG in D5% in Water 250 ML IVPB SCH ×2 (10:31→20:30)
[2017-01-04] MEDS: Acetaminophen 325 MG TABLET PO PRN ×2 (15:20→20:30)
[2017-01-04] MEDS: Cefepime HCl 2,000 MG in D5% in Water (Mini-Bag+) 100 ML IVPB SCH (17:16)
[2017-01-04] MEDS: Benzonatate 100 MG CAPSULE PO PRN (20:30)
[2017-01-05] MEDS: Acetaminophen 325 MG TABLET PO PRN ×3 (03:33→23:02)
[2017-01-05] MEDS: *HR* Heparin 5,000 UNIT/ML VIAL SQ SCH ×2 (06:02→17:19)
[2017-01-05] MEDS: Cefepime HCl 2,000 MG in D5% in Water (Mini-Bag+) 100 ML IVPB SCH ×2 (06:02→17:18)
[2017-01-05 06:38] LABS: Basophils % 0.3 %; Eosinophils # 0.2 K/mcL (0.0-0.6); Eosinophils % 1.6 %; Hematocrit 39.4 % (37.5-50.1); Hemoglobin 12.9 g/dL (12.9-16.9); Immature Granulocytes % 0.4 % (0-4); Lymphocytes # 1.7 K/mcL (0.6-4.6); Lymphocytes % 14.5 %; Mean Corpuscular HGB Conc 32.7 g/dL (31.6-35.5); Mean Corpuscular Hemoglobin 29.8 pg (28.0-33.3); Monocytes # 0.8 K/mcL (0.0-1.3); Monocytes % 6.8 %; Neutrophils # 8.8 K/mcL (1.6-8.9); Platelet Count 224 K/mcL (140-400); Red Blood Count 4.33 M/mcL (4.19-5.50); Red Cell Distribution Width 12.2 % (11.5-14.5); Segmented Neutrophils % 76.4 %
[2017-01-05 06:46] LABS: BUN/Creatinine Ratio 8 (6-26); Blood Urea Nitrogen 8 mg/dL (8-26); Calcium 8.3 mg/dL (8.6-10.8); Carbon Dioxide 27 mEq/L (19-29); Chloride 108 mEq/L (98-109); Glucose 139 mg/dL (70-99); Magnesium 1.8 mg/dL (1.6-2.6); Osmolality,Calculated 289 (280-300); Potassium 3.8 mEq/L (3.5-4.5); Sodium 139 mEq/L (136-145); eGFR For African Americans > 60 (> 60); eGFR For Non-African Americans > 60 (> 60)
[2017-01-05] MEDS: 0.9 % Sodium Chloride 1,000 ML IVC SCH ×2 (07:23→07:25)
[2017-01-05] MEDS: Levofloxacin 750 MG/150 ML 750 MG/150 ML BAG IVPB SCH (09:25)
[2017-01-05] MEDS: Vancomycin 1,500 MG in D5% in Water 250 ML IVPB SCH (09:25)
[2017-01-05] MEDS: Pantoprazole 40 MG VIAL IVP SCH (09:26)
--- NOTE | 2017-01-05 10:10 | Internal Med Progress Note ---
<Serafin Cancino - Last Filed: 01/05/17 10:08> Date of Encounter: 01/05/17 Time of Encounter: 10:08 - Assessment and plan (1) Severe sepsis Current Visit: Yes Status: Acute Assessment and plan: Resolved. Patient presented with leukocytosis, tachycardia, acute kidney injury with presumed source to be pneumonia. Patient was given 30 mL/kg fluid bolus and maintenance fluid has been continued, initial lactate was 2.1, repeat was 1.7. Blood cultures are been drawn, antibiotics and been initiated. Continue to monitor. (2) Pneumonia Current Visit: Yes Status: Acute Assessment and plan: Patient has multifocal pneumonia on CT scan. Given the patient's history for drug abuse there is a concern for aspiration pneumonia or possibly septic emboli. Continue antibiotics, we will attempt to obtain a sputum culture, blood cultures no growth to date. Concern for septic emboli in the setting of infective endocarditis, TTE was unremarkable with poor visualization of the valves, will obtain CHANTE. Qualifiers: Pneumonia type: due to unspecified organism Laterality: bilateral Lung location: unspecified part of lung Qualified Code(s): J18.9 - Pneumonia, unspecified organism (3) Drug abuse Current Visit: Yes Status: Acute Assessment and plan: Patient has a history of drug abuse but denies any IV use, however patient has used in the past. Patient reports taking 1 Percocet last night but denies any other drug use. Drug screen is positive for opiates and amphetamines. (4) DVT prophylaxis Current Visit: Yes Status: Acute Assessment and plan: Heparin 5000 units subcutaneous twice a day. - Subjective Interval history: Patient seen and examined at bedside. Patient states that he feels much better today. He reports his cough has resolved. He denies fevers and chills. - Constitutional Vitals: Temp Pulse Resp BP Pulse Ox 97.6 F 92 18 113/78 94 01/05/17 07:42 01/05/17 07:42 01/05/17 07:42 01/05/17 07:42 01/05/17 07:59 General appearance: Present: A&O X 3, pleasant, no acute distress - Respiratory Respiratory exam: Present: CTAB. Absent: rales, rhonchi, wheezes - Cardiovascular Cardiovascular exam: Present: RRR. Absent: gallop, rubs, systolic murmur - GI/Abdominal GI/Abdominal exam: Present: normal bowel sounds, soft. Absent: distended, tenderness - Extremities Exam Extremities exam: Present: warm. Absent: pedal edema, tenderness - Neurological Exam Neurological exam: Present: alert, CN II-XII intact, oriented X3, no focal deficits Internal Medicine: Result - Labs CBC & Chem 7: 01/05/17 06:18 01/05/17 06:18 Labs: Short CBC 01/05/17 Range/Units 06:18 WBC 11.6 H (4.3-11.1) K/mcL Hgb 12.9 (12.9-16.9) g/dL Hct 39.4 (37.5-50.1) % Plt Count 224 (140-400) K/mcL Neutrophils # 8.8 (1.6-8.9) K/mcL BMP 01/05/17 06:18 Sodium 139 Potassium 3.8 D Chloride 108 Carbon Dioxide 27 BUN 8 Creatinine 1.06 Glucose 139 H Calcium 8.3 L Consult Discharge Plan - Plan Instructions: Sepsis (DC), Pneumonia (DC) Referrals: NO,PCP [Primary Care Provider] - <Aldo Haley P - Last Filed: 01/05/17 17:16> Date of Encounter: 01/05/17 - Constitutional Vitals: Temp Pulse Resp BP Pulse Ox 97.6 F 96 18 117/84 95 01/05/17 17:04 01/05/17 17:04 01/05/17 17:04 01/05/17 17:04 01/05/17 17:04 Internal Medicine: Result - Labs CBC & Chem 7: 01/05/17 06:18 01/05/17 06:18 Labs: Short CBC 01/05/17 Range/Units 06:18 WBC 11.6 H (4.3-11.1) K/mcL Hgb 12.9 (12.9-16.9) g/dL Hct 39.4 (37.5-50.1) % Plt Count 224 (140-400) K/mcL Neutrophils # 8.8 (1.6-8.9) K/mcL BMP 01/05/17 06:18 Sodium 139 Potassium 3.8 D Chloride 108 Carbon Dioxide 27 BUN 8 Creatinine 1.06 Glucose 139 H Calcium 8.3 L - Attending Attestation I examined this patient and my medical decision-making was reviewed with the OPERATIONS AND MAINTENANCE MANAGER/PA/Advanced Practice Nurse/Resident Physician. I agree with the documented findings, disposition and treatment plan as described except to the extent set forth below. 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
[2017-01-05] MEDS: Lactobacillus 1 EACH CAP.SPRINK PO SCH ×2 (12:27→20:08)
[2017-01-05] MEDS ORDERED: 0.9 % Sodium Chloride 500 ML IVC ONE (13:21)
[2017-01-05] MEDS ORDERED: Tetracaine/Benzocaine/Butamben 200MG/SPRAY (100SPY/BOT) MM ONE (13:21)
[2017-01-05] MEDS: *HR* Midazolam HCl 5 MG/5 ML VIAL IVP PRN ×2 (14:40→14:45)
[2017-01-05] MEDS: *HR* FentaNYL (PF) 100 MCG/2 ML VIAL IVP PRN ×2 (14:40→14:45)
[2017-01-05] MEDS: Benzonatate 100 MG CAPSULE PO PRN (23:01)
[2017-01-05] MEDS: Vancomycin 1,750 MG in D5% in Water 500 ML IVPB SCH (23:01)
[2017-01-06] MEDS: Cefepime HCl 2,000 MG in D5% in Water (Mini-Bag+) 100 ML IVPB SCH ×2 (06:47→16:59)
[2017-01-06] MEDS: *HR* Heparin 5,000 UNIT/ML VIAL SQ SCH ×2 (06:47→16:58)
[2017-01-06 07:06] LABS: BUN/Creatinine Ratio 8 (6-26); Blood Urea Nitrogen 8 mg/dL (8-26); Calcium 8.9 mg/dL (8.6-10.8); Carbon Dioxide 29 mEq/L (19-29); Chloride 106 mEq/L (98-109); Glucose 105 mg/dL (70-99); Magnesium 1.7 mg/dL (1.6-2.6); Osmolality,Calculated 291 (280-300); Potassium 3.3 mEq/L (3.5-4.5); Sodium 141 mEq/L (136-145); eGFR For African Americans > 60 (> 60); eGFR For Non-African Americans > 60 (> 60)
[2017-01-06 07:08] LABS: Basophils # 0.1 K/mcL (0.0-0.2); Basophils % 0.7 %; Eosinophils # 0.3 K/mcL (0.0-0.6); Eosinophils % 3.7 %; Hematocrit 40.3 % (37.5-50.1); Hemoglobin 13.4 g/dL (12.9-16.9); Immature Granulocytes % 0.5 % (0-4); Lymphocytes % 22.9 %; Mean Corpuscular HGB Conc 33.3 g/dL (31.6-35.5); Mean Corpuscular Hemoglobin 30.2 pg (28.0-33.3); Mean Corpuscular Volume 90.8 fL (83.0-100.0); Mean Platelet Volume 11.4 fL (9.4-12.4); Monocytes # 0.7 K/mcL (0.0-1.3); Monocytes % 7.6 %; Neutrophils # 5.6 K/mcL (1.6-8.9); Platelet Count 230 K/mcL (140-400); Red Blood Count 4.44 M/mcL (4.19-5.50); Red Cell Distribution Width 12.1 % (11.5-14.5); Segmented Neutrophils % 64.6 %
[2017-01-06] MEDS: Acetaminophen 325 MG TABLET PO PRN (07:57)
[2017-01-06] MEDS: Levofloxacin 750 MG/150 ML 750 MG/150 ML BAG IVPB SCH (07:57)
[2017-01-06] MEDS: Lactobacillus 1 EACH CAP.SPRINK PO SCH ×2 (07:57→21:03)
--- NOTE | 2017-01-06 10:12 | Internal Med Progress Note ---
<Serafin Cancino - Last Filed: 01/06/17 10:09> Date of Encounter: 01/06/17 Time of Encounter: 10:09 - Assessment and plan (1) Severe sepsis Current Visit: Yes Status: Acute Assessment and plan: Resolved. Patient presented with leukocytosis, tachycardia, acute kidney injury with presumed source to be pneumonia and possibly infective endocarditis. Patient was given 30 mL/kg fluid bolus and maintenance fluid has been continued, initial lactate was 2.1, repeat was 1.7. Blood cultures are been drawn, antibiotics and been initiated. Continue to monitor. (2) Infective endocarditis of aortic valve Current Visit: Yes Status: Acute Assessment and plan: CHANTE showed a 6 mm echodensity on the aortic valve concerning for infective endocarditis. Patient has possible infective endocarditis by Ying criteria. Initial cultures have been negative, repeat blood cultures have been drawn. Continue broad-spectrum antibiotics with vancomycin cefepime, Levaquin. Infectious disease has been consulted. (3) Pneumonia Current Visit: Yes Status: Acute Assessment and plan: Patient has multifocal pneumonia on CT scan. Given the patient's history for drug abuse there is a concern for aspiration pneumonia or possibly septic emboli. Continue antibiotics, we will attempt to obtain a sputum culture, blood cultures no growth to date. Concern for septic emboli in the setting of infective endocarditis Qualifiers: Pneumonia type: due to unspecified organism Laterality: bilateral Lung location: unspecified part of lung Qualified Code(s): J18.9 - Pneumonia, unspecified organism (4) Drug abuse Current Visit: Yes Status: Acute Assessment and plan: Patient has a history of drug abuse but denies any IV use, however patient has used in the past. Patient reports taking 1 Percocet last night but denies any other drug use. Drug screen is positive for opiates and amphetamines. (5) Drug overdoses Current Visit: Yes Status: Acute Assessment and plan: Possible. Qualifiers: Encounter type: initial encounter Injury intent: accidental or unintentional Qualified Code(s): T50.901A - Poisoning by unspecified drugs, medicaments and biological substances, accidental (unintentional), initial encounter (6) DVT prophylaxis Current Visit: Yes Status: Acute Assessment and plan: Heparin 5000 units subcutaneous twice a day. - Subjective Interval history: Patient seen and examined at bedside. Patient states that he feels much better today. He states he feels back to normal. He denies fevers and chills. - Constitutional Vitals: Temp Pulse Resp BP Pulse Ox 97.9 F 92 18 126/83 94 01/06/17 07:43 01/06/17 07:43 01/06/17 07:43 01/06/17 07:43 01/06/17 07:43 General appearance: Present: A&O X 3, pleasant, no acute distress - Respiratory Respiratory exam: Present: CTAB. Absent: rales, rhonchi, wheezes - Cardiovascular Cardiovascular exam: Present: RRR. Absent: gallop, rubs, systolic murmur - GI/Abdominal GI/Abdominal exam: Present: normal bowel sounds, soft. Absent: distended, tenderness - Extremities Exam Extremities exam: Present: warm. Absent: pedal edema, tenderness - Neurological Exam Neurological exam: Present: alert, CN II-XII intact, oriented X3, no focal deficits Internal Medicine: Result - Labs CBC & Chem 7: 01/06/17 06:22 01/06/17 06:22 Labs: Short CBC 01/06/17 Range/Units 06:22 WBC 8.6 (4.3-11.1) K/mcL Hgb 13.4 (12.9-16.9) g/dL Hct 40.3 (37.5-50.1) % Plt Count 230 (140-400) K/mcL Neutrophils # 5.6 (1.6-8.9) K/mcL BMP 01/06/17 06:22 Sodium 141 Potassium 3.3 L Chloride 106 Carbon Dioxide 29 BUN 8 Creatinine 1.03 Glucose 105 H Calcium 8.9 Consult Discharge Plan - Plan Instructions: Sepsis (DC), Pneumonia (DC) Referrals: Hernan Mccord DO [Resident] - 01/20/17 3:30 pm <Aldo Haley - Last Filed: 01/06/17 12:48> Date of Encounter: 01/06/17 - Constitutional Vitals: Temp Pulse Resp BP Pulse Ox 97.8 F 79 18 123/77 98 01/06/17 11:54 01/06/17 11:54 01/06/17 11:54 01/06/17 11:54 01/06/17 11:54 Internal Medicine: Result - Labs CBC & Chem 7: 01/06/17 06:22 01/06/17 06:22 Labs: Short CBC 01/06/17 Range/Units 06:22 WBC 8.6 (4.3-11.1) K/mcL Hgb 13.4 (12.9-16.9) g/dL Hct 40.3 (37.5-50.1) % Plt Count 230 (140-400) K/mcL Neutrophils # 5.6 (1.6-8.9) K/mcL BMP 01/06/17 06:22 Sodium 141 Potassium 3.3 L Chloride 106 Carbon Dioxide 29 BUN 8 Creatinine 1.03 Glucose 105 H Calcium 8.9 - Attending Attestation I examined this patient and my medical decision-making was reviewed with the CONSULTING UTILITY FORESTER/PA/Advanced Practice Nurse/Resident Physician. I agree with the documented findings, disposition and treatment plan as described except to the extent set forth below. Discussed infective endocarditis diagnosis with the patient at length. Diagrams drawn and explained plan at length. Informed patient that infectious disease specialist will be on the board and recommending antibiotics. Compared patient that he might be going to facility to complete the antibiotics. Patient verbalizes understanding.
[2017-01-06] MEDS: Vancomycin 1,750 MG in D5% in Water 500 ML IVPB SCH (10:20)
[2017-01-06] MEDS: hydrOXYzine pamoate 25 MG CAPSULE PO PRN ×2 (10:20→21:24)
--- NOTE | 2017-01-06 15:03 | Infectious Disease Consult ---
Date of Encounter: 01/06/17 Time of Encounter: 15:03 Assessment and Plan (1) Severe sepsis Status: Acute Assessment and plan: Resolved Had 2 SIRS criteria on admission plus acute kidney injury (2) Aspiration pneumonia Status: Acute Assessment and plan: causative organism unclear, concern for aspiration pneumonia check urine legionella and pneumococcal antigen d/c levaquin and cefepime start zosyn since we need anaerobic coverage continue vancomycin discussed with radiologist who red CT, no concern for septic emboli Qualifiers: Aspiration pneumonia type: unspecified Laterality: right Lung location: upper lobe of lung Qualified Code(s): J69.0 - Pneumonitis due to inhalation of food and vomit (3) Drug overdoses Status: Acute Qualifiers: Encounter type: initial encounter Injury intent: accidental or unintentional Qualified Code(s): T50.901A - Poisoning by unspecified drugs, medicaments and biological substances, accidental (unintentional), initial encounter (4) Infective endocarditis of aortic valve Status: Acute Assessment and plan: 6 mm pedunculated mobile echodensity on CHANTE. Questionable IV drug use. Patient has 1 major Ying and one minor [place] criteria if we consider that he has a history of IV drug use. Culture-negative, never had a fever. Physical examination negative for endocarditis stigmata Check rheumatoid factor and Coxiella serology IgG. Continue vancomycin and Zosyn for possible culture-negative endocarditis. We'll discuss with the primary team to see if they want to treat or just observe and repeat CHANTE in few months. Awaiting repeat blood cultures. Consider checking hepatitis and HIV profile Infectious Disease HPI - Data of Consult Patient: new to practice Consult date: 01/06/17 Requesting Physician: Aldo Haley MD Primary Care Provider: PCP NO - Consult Narrative Reason for consult: endocarditis History of present illness: Mr. Mehta is a 41 year old male Patient is a 31-year-old gentleman admitted to [facility] on 01/03/2017 with drug overdose severe sepsis and aspiration pneumonia, we are consulted on 01/06/2017 for culture-negative endocarditis. Patient is a 41-year-old gentleman who is a very poor historian apparently was brought into the emergency department because he was unresponsive. Patient was given Narcan and he became arousable and then became lethargic again and required another round of Narcan. In the emergency department patient was desaturating with O2 sats of 80%. In the ED patient was noted to be tachycardic, hypoxic but no fever. Initial labs revealed WBC of 12.3 thousand with neutrophilic predominance increased to 20,000 on day 2. No bands were noted. Patient also was in acute kidney injury with creatinine of 1.36. Patient did not have any lactic acidosis. A urine tox screen was positive for opiates and amphetamines. CT of the chest done revealed multifocal pneumonia. I did call the radiologist who read the CT and he states that there is no signs of septic emboli radiologically. Blood cultures were also obtained and were no growth. Patient was started on Levaquin and Rocephin for pneumonia. A TTE was obtained which showed no acute process. A CHANTE was then obtained which revealed evidence of a 6 mm pedunculated and mobile intracardiac vegetation on the right coronary cusp of the aortic valve consistent with endocarditis. Today patient laying in bed appears comfortable nontoxic. I asked the patient multiple times that shes ever had drug use with a recreational inhaled oral or IV and he keep adamantly denying. The history was taken from the patient before reviewing the chart. Once I reviewed the chart I realized that his urine drug screen has been positive. Physical exam completely negative for endocarditis stigmata. No gangrene lesion no also notes no conjunctival hemorrhage and I did not appreciate any murmur. CC: Aldo Haley MD Past Med Surg Social Fam HX - Past Medical History Medical history: no medical history Psychiatric history: anxiety, depression, other - Past Surgical History Surgical History: appendectomy, orthopedic, other, other - Social History Smoking Status: Never smoker Smokeless Tobacco Status: No Alcohol use: occasionally Drug use: cocaine, opiates, methamphetamine, prescription drug abuse, other - Family History Mother Hx Family Endocrine Disorder: Yes (DM) Infectious Disease-CN:Meds Acetaminophen [Tylenol] 1,000 mg PO BID PRN 05/23/16 [History] Ibuprofen [Motrin] 800 mg PO Q6HR PRN 01/03/17 [History] Allergies Penicillins Allergy (Verified 11/13/16 07:49) Hives Review of systems: 10 point ROS done, negative other for what's mentioned in the HPI Exam - Constitutional Vitals: Temp Pulse Resp BP Pulse Ox 97.8 F 79 18 123/77 98 01/06/17 11:54 01/06/17 11:54 01/06/17 11:54 01/06/17 11:54 01/06/17 11:54 General appearance: no acute distress, no febrile - Head Head exam: Present: atraumatic, normocephalic - Eye Eye exam: Present: EOMI, PERRL Additional comments: No conjunctival hemorrhages noted. - ENT ENT exam: Present: mucous membranes dry - Neck Neck exam: Present: full ROM - Respiratory Respiratory exam: Present: CTAB. Absent: wheezes - Cardiovascular Cardiovascular exam: Present: RRR, +S1, +S2 Additional comments: I did not appreciate any murmur. - GI/Abdominal GI/Abdominal exam: Present: soft. Absent: organomegaly, tenderness - Extremities Exam Extremities exam: Present: normal inspection. Absent: pedal edema - Back Exam Back exam: Absent: vertebral tenderness - Neurological Exam Neurological exam: Present: alert, oriented X3. Absent: speech deficit - Psychiatric Psychiatric exam: Present: flat affect - Skin Additional comments: No endocarditis stigmata. Multiple tattoos Infectious Disease CN: Results - Labs CBC & Chem 7: 01/06/17 06:22 01/06/17 06:22 Consult Discharge Plan - Plan Instructions: Sepsis (DC), Pneumonia (DC) Referrals: Hernan Mccord DO [Resident] - 01/20/17 3:30 pm
[2017-01-06] MEDS: traMADol 50 MG TABLET PO PRN (18:59)
[2017-01-06] MEDS: Benzonatate 100 MG CAPSULE PO PRN (21:22)
[2017-01-07] MEDS: Vancomycin 1,750 MG in D5% in Water 500 ML IVPB SCH (04:14)
[2017-01-07 04:54] LABS: Basophils # 0.1 K/mcL (0.0-0.2); Basophils % 0.7 %; Eosinophils # 0.4 K/mcL (0.0-0.6); Eosinophils % 4.4 %; Hematocrit 42.8 % (37.5-50.1); Hemoglobin 14.4 g/dL (12.9-16.9); Immature Granulocytes % 0.9 % (0-4); Lymphocytes # 2.3 K/mcL (0.6-4.6); Lymphocytes % 24.5 %; Mean Corpuscular HGB Conc 33.6 g/dL (31.6-35.5); Mean Corpuscular Hemoglobin 30.4 pg (28.0-33.3); Mean Corpuscular Volume 90.3 fL (83.0-100.0); Mean Platelet Volume 10.9 fL (9.4-12.4); Monocytes # 0.8 K/mcL (0.0-1.3); Monocytes % 8.7 %; Neutrophils # 5.8 K/mcL (1.6-8.9); Platelet Count 272 K/mcL (140-400); Red Blood Count 4.74 M/mcL (4.19-5.50); Red Cell Distribution Width 12.3 % (11.5-14.5); Segmented Neutrophils % 60.8 %
[2017-01-07] MEDS ORDERED: Vancomycin 1,750 MG in D5% in Water 500 ML IVPB SCH (05:00)
[2017-01-07 05:03] LABS: BUN/Creatinine Ratio 11 (6-26); Blood Urea Nitrogen 11 mg/dL (8-26); Calcium 9.1 mg/dL (8.6-10.8); Carbon Dioxide 28 mEq/L (19-29); Chloride 105 mEq/L (98-109); Glucose 94 mg/dL (70-99); Magnesium 1.9 mg/dL (1.6-2.6); Osmolality,Calculated 289 (280-300); Potassium 3.8 mEq/L (3.5-4.5); Sodium 140 mEq/L (136-145); eGFR For African Americans > 60 (> 60); eGFR For Non-African Americans > 60 (> 60)
[2017-01-07] MEDS: Cefepime HCl 2,000 MG in D5% in Water (Mini-Bag+) 100 ML IVPB SCH (06:20)
[2017-01-07] MEDS: *HR* Heparin 5,000 UNIT/ML VIAL SQ SCH (06:32)
[2017-01-07] MEDS: traMADol 50 MG TABLET PO PRN ×2 (06:35→15:36)
[2017-01-07] MEDS: Lactobacillus 1 EACH CAP.SPRINK PO SCH (09:36)
[2017-01-07] MEDS: Levofloxacin 750 MG/150 ML 750 MG/150 ML BAG IVPB SCH (09:36)
--- NOTE | 2017-01-07 09:56 | Internal Med Progress Note ---
<Serafin Cancino - Last Filed: 01/07/17 09:53> Date of Encounter: 01/07/17 Time of Encounter: 09:54 - Assessment and plan (1) Severe sepsis Current Visit: Yes Status: Acute Assessment and plan: Resolved. Patient presented with leukocytosis, tachycardia, acute kidney injury with presumed source to be pneumonia and possibly infective endocarditis. Patient was given 30 mL/kg fluid bolus and maintenance fluid has been continued, initial lactate was 2.1, repeat was 1.7. Blood cultures are been drawn, antibiotics and been initiated. Continue to monitor. (2) Infective endocarditis of aortic valve Current Visit: Yes Status: Acute Assessment and plan: CHANTE showed a 6 mm echodensity on the aortic valve concerning for infective endocarditis. Patient has possible infective endocarditis by Ying criteria. Initial cultures have been negative, repeat blood cultures have been drawn. Continue broad-spectrum antibiotics with vancomycin cefepime, Levaquin. Infectious disease is following, will discuss further treatment with ID. (3) Pneumonia Current Visit: Yes Status: Acute Assessment and plan: Patient has multifocal pneumonia on CT scan. Given the patient's history for drug abuse there is a concern for aspiration pneumonia or possibly septic emboli. Continue antibiotics, we will attempt to obtain a sputum culture, blood cultures no growth to date. Will discuss with ID Qualifiers: Pneumonia type: due to unspecified organism Laterality: bilateral Lung location: unspecified part of lung Qualified Code(s): J18.9 - Pneumonia, unspecified organism (4) Drug abuse Current Visit: Yes Status: Acute Assessment and plan: Patient has a history of drug abuse but denies any IV use, however patient has used in the past. Patient reports taking 1 Percocet last night but denies any other drug use. Drug screen is positive for opiates and amphetamines. (5) Drug overdoses Current Visit: Yes Status: Acute Assessment and plan: Possible. Qualifiers: Encounter type: initial encounter Injury intent: accidental or unintentional Qualified Code(s): T50.901A - Poisoning by unspecified drugs, medicaments and biological substances, accidental (unintentional), initial encounter (6) DVT prophylaxis Current Visit: Yes Status: Acute Assessment and plan: Heparin 5000 units subcutaneous twice a day. - Subjective Interval history: Patient seen and examined at bedside. Patient states that he feels much better today. He states he feels back to normal. He denies fevers and chills. - Constitutional Vitals: Temp Pulse Resp BP Pulse Ox 97.4 F L 86 18 113/68 94 01/07/17 06:46 01/07/17 06:46 01/07/17 06:46 01/07/17 06:46 01/07/17 06:46 General appearance: Present: A&O X 3, pleasant, no acute distress - Respiratory Respiratory exam: Present: CTAB. Absent: rales, rhonchi, wheezes - Cardiovascular Cardiovascular exam: Present: RRR. Absent: gallop, rubs, systolic murmur - GI/Abdominal GI/Abdominal exam: Present: normal bowel sounds, soft. Absent: distended, tenderness - Extremities Exam Extremities exam: Present: warm. Absent: pedal edema, tenderness Internal Medicine: Result - Labs CBC & Chem 7: 01/07/17 04:15 01/07/17 04:15 Labs: Short CBC 01/07/17 Range/Units 04:15 WBC 9.6 (4.3-11.1) K/mcL Hgb 14.4 (12.9-16.9) g/dL Hct 42.8 (37.5-50.1) % Plt Count 272 (140-400) K/mcL Neutrophils # 5.8 (1.6-8.9) K/mcL BMP 01/07/17 04:15 Sodium 140 Potassium 3.8 Chloride 105 Carbon Dioxide 28 BUN 11 Creatinine 1.03 Glucose 94 Calcium 9.1 Consult Discharge Plan - Plan Instructions: Sepsis (DC), Pneumonia (DC) Referrals: Hernan Mccord DO [Resident] - 01/20/17 3:30 pm <Aldo Haley - Last Filed: 01/07/17 16:31> Date of Encounter: 01/07/17 - Constitutional Vitals: Temp Pulse Resp BP Pulse Ox 96.7 F L 96 18 128/78 98 01/07/17 16:11 01/07/17 16:11 01/07/17 16:11 01/07/17 16:11 01/07/17 16:11 Internal Medicine: Result - Labs CBC & Chem 7: 01/07/17 04:15 01/07/17 04:15 Labs: Short CBC 01/07/17 Range/Units 04:15 WBC 9.6 (4.3-11.1) K/mcL Hgb 14.4 (12.9-16.9) g/dL Hct 42.8 (37.5-50.1) % Plt Count 272 (140-400) K/mcL Neutrophils # 5.8 (1.6-8.9) K/mcL BMP 01/07/17 04:15 Sodium 140 Potassium 3.8 Chloride 105 Carbon Dioxide 28 BUN 11 Creatinine 1.03 Glucose 94 Calcium 9.1 - Attending Attestation I examined this patient and my medical decision-making was reviewed with the PRODUCTION INTERNSHIP/PA/Advanced Practice Nurse/Resident Physician. I agree with the documented findings, disposition and treatment plan as described except to the extent set forth below.
[2017-01-07] MEDS: hydrOXYzine pamoate 25 MG CAPSULE PO PRN (10:34)
[2017-01-07 16:15] VITALS: BP 128/78
--- NOTE | 2017-01-07 16:33 | Discharge Summary ---
Date of Encounter: 01/07/17 Time of Encounter: 16:31 - Discharge Diagnosis (1) Infective endocarditis of aortic valve Priority: Primary Status: Acute (2) Drug overdoses Priority: Primary Status: Acute Qualifiers: Encounter type: initial encounter Injury intent: accidental or unintentional Qualified Code(s): T50.901A - Poisoning by unspecified drugs, medicaments and biological substances, accidental (unintentional), initial encounter (3) Aspiration pneumonia Priority: Secondary Status: Acute Qualifiers: Aspiration pneumonia type: unspecified Laterality: right Lung location: upper lobe of lung Qualified Code(s): J69.0 - Pneumonitis due to inhalation of food and vomit (4) Pneumonia Priority: Secondary Status: Acute Qualifiers: Pneumonia type: due to unspecified organism Laterality: bilateral Lung location: unspecified part of lung Qualified Code(s): J18.9 - Pneumonia, unspecified organism (5) Unresponsive episode Priority: Secondary Status: Acute - Discharge Medications Home Medications: Acetaminophen [Tylenol] 1,000 mg PO BID PRN 05/23/16 [History] Ibuprofen [Motrin] 800 mg PO Q6HR PRN 01/03/17 [History] Allergies/Adverse Reactions: Allergies Penicillins Allergy (Verified 01/07/17 15:43) Hives REPORTS HIVES WHILE BEING TREATED FOR POISON SUMAC, CANNOT REMEMBER MEDICATION , REPORTS NO SWELLING OF LIPS/TONGUE/THROAT Procedures/tests Complete & Pending: Procedures Performed prior 72 hours Category Date Time Status EV CHANTE transesophageal echo Routine Y 01/05/17 08:00 Completed Date of admission: 01/03/17 15:54 Primary care physician: PCP NO Consults: 01/05/17 16:56 Consult to Infectious Diseases [CONS] Routine Consulting Provider: Infectious Disease [place] Reason for Consult: Infective endocarditis Call Completed: Yes 01/06/17 08:37 Consult to Organ Pipe Finisher [CONS] Routine Reason for SW Consult: Placement for IV abx; pt is a drug user Discharging clinician: Aldo Haley - Patient Status Disposition: Home, Self-Care Condition: Good Functional capacity at discharge: independent ambulation Overall status at discharge: patient is progressing back to baseline - Discharge Instructions Instructions: Sepsis (DC), Pneumonia (DC) Follow Up With: Hernan Mccord DO [Resident] - 01/20/17 3:30 pm Vinicius Sanders MD [Partnered Physician] - - Diet and Activity Activity: increase activity as tolerated Diet: low salt diet Interval History: Mr. Mehta is a 41 year old male with no past medical history. The patient's mother he was out approximately 5 AM appropriate and alert. She went to bed and approximately 8 PM she found him in a reclining chair unresponsive to verbal tactile stimuli cyanotic and cool and clammy with blowing respirators. EMS was notified and upon their arrival they can administer Narcan patient did arouse he admitted to taking 1 Percocet 30 early in the morning. He then became groggy second round of Narcan was given patient more arousable. Upon arrival to ER patient's oxygen saturation was 80% on room air he was placed on nonrebreather. Labwork was obtained which revealed some leukocytosis at 12.3 creatinine was 1.362 458 lactate was 2.1 troponin was 0.06. Tox screen was positive for opiates and amphetamines. Chest x-ray revealed patchy the patient needs a right upper lobe energy conservation representative of pneumonia. Patient did meet sepsis criteria for cultures have been obtained he was given IV fluids Levaquin and Rocephin. He has been admitted for further workup evaluation. Presently the patient appears groggy he does arouse to verbal stimuli. He answers questions appropriately and follows simple commands. He is oriented 3. Heart sounds are regular with no rubs clicks gallops or murmurs noted he is sinus tach on monitor. Lung sounds with coarse rhonchi right upper and lower lobe. No peripheral edema noted. He does not appear to be in any respiratory distress at this time. He does complain of midsternal chest pain during cough pain is reproducible. Hospital course: Patient was hospitalized. In view of the bilateral fluffy shadows on CT scan he was started on treatment for amenity acquired pneumonia. The likely etiology for this pneumonia is aspiration of gastric contents. This is likely secondary to an unresponsive episode. Patient did not get better after 24 hours of IV fluids/antibiotics. Transthoracic echocardiogram was performed which did not reveal any abnormality. Patient white blood cell count was persistently high. Trans- esophageal echo echocardiogram was done. CHANTE was suggestive of a 6 mm vegetation on aortic valve. Patient was evaluated by infectious disease. Recommended IV antibiotics for long duration. In view of the urine drug screen positive for amphetamine needs to go to the residential/facility for completion of the rest of the antibiotics. Patient denied to get his antibiotic treatment. Patient insisted to go home. Spoke to patient at length. Patient risk, benefit, advantage, does have a daily an alternative option of going home versus staying in a facility and get completed treatment with antibiotics. Patient persistently denied and keen on going home. Along with me RN Gina was also case aide for the floor and patient's RN Miss Platt where present. In spite of all of us try to convince the patient to stay and get his antibiotic treatment completed, he choose to leave the hospital AGAINST MEDICAL ADVICE. Patient is aware of the consequences which are stroke, renal infarct, hematuria, MRI, CVA and . We promise patient that we will make appointment with infectious disease/ primary care All questions answered at the time of discharge. Patient does not have any questions, concerns, update our recommendation at the time of discharge - Time Spent with Patient Total time spent providing and/or coordinating discharge services: - Constitutional Vitals: Temp Pulse Resp BP Pulse Ox 96.7 F L 96 18 128/78 98 01/07/17 16:11 01/07/17 16:11 01/07/17 16:11 01/07/17 16:11 01/07/17 16:11 General appearance: Present: A&O X 3, pleasant, no acute distress - Head Head exam: Present: atraumatic, normocephalic - Eye Eye exam: Present: PERRL, conjuntiva pink, sclera anicteric Pupils: Present: PERRL - Neck Neck exam general surgery: Present: supple, trachea midline. Absent: lymphadenopathy - Respiratory Respiratory exam: Present: CTAB. Absent: accessory muscle use, rales, rhonchi, wheezes - Cardiovascular Cardiovascular exam: Present: RRR, +S1, +S2. Absent: diastolic murmur, gallop, rubs, systolic murmur - GI/Abdominal GI/Abdominal exam: Present: normal bowel sounds, soft, no peritoneal signs. Absent: distended, tenderness - Extremities Exam Extremities exam: Present: warm, radial pulses palpable and symetrical. Absent : calf tenderness, cyanotic, pedal edema - Neurological Exam Neurological exam: Present: CN II-XII intact, oriented X3, no focal deficits. Absent: pronater drift, facial droop, speech deficit - Skin Skin exam: Present: dry, intact
[2017-01-07] MEDS ORDERED: Aminoglycoside Consult 1 EACH MC ONE (17:05)
== END 2017-01-07 17:06 | disposition left against medical advice (07) ==
LOC: 2NENU 09:01 → EMEROO 09:01 → 2NENU 17:10
PROVIDERS: ADMIT Internal Medicine; ATTEND Internal Medicine

== ENCOUNTER 2017-01-28 15:32 | Inpatient (IN) ==
--- NOTE | 2017-01-28 17:32 | Emergency Department Note ---
Disposition Clinical Impression: Endocarditis Qualifiers: Endocarditis type: unspecified Chronicity: unspecified Qualified Code(s): I38 - Endocarditis, valve unspecified Disposition: Admitted As Inpatient Condition: Good Referrals: NO,PCP [Non-Partnered Physician] - Forms: ED Satisfaction Letter Time of Disposition: 17:41 General Adult HPI - General Chief complaint: ED Shortness of Breath/Dyspnea Stated complaint: NADINE, dizziness Time Seen by Provider: 01/28/17 17:23 Source: patient Limitations: no limitations Nursing Notes Reviewed: Yes Vital Signs Reviewed: Yes - History of Present Illness HPI Narrative: 41-year-old who was seen here last night for dizziness not feeling well night sweats had an echo done with a questionable valve vegetation. Patient was seen last PM and signed out AGAINST MEDICAL ADVICE. Comes back today because he felt dizzy has had some night sweats. Pt Subjective Complaint: Dizziness Onset (ago): day(s) Pain Scale: 0 - Related Data Home Medications Medication Instructions Recorded Confirmed Acetaminophen [Tylenol] 1,000 mg PO BID PRN 05/23/16 01/03/17 Ibuprofen [Motrin] 800 mg PO Q6HR PRN 01/03/17 01/03/17 Allergies Allergy/AdvReac Type Severity Reaction Status Date / Time Penicillins Allergy Hives Verified 01/07/17 15:43 Constitutional: Denies: fever, chills, weakness, weight change Eyes: Denies: eye pain, eye discharge, vision change ENT ED: Denies: ear pain, throat pain, dental pain, hearing loss, epistaxis, congestion, dysphagia Cardiovascular: Denies: chest pain, palpitations, dyspnea on exertion, edema, syncope Respiratory: Denies: cough, dyspnea, wheezes, hemoptysis, stridor Gastrointestinal: Denies: abdominal pain, nausea, vomiting, diarrhea, constipation, hematemesis, melena, hematochezia Genitourinary: Denies: urgency, dysuria, frequency, hematuria Musculoskeletal: Denies: back pain, neck pain, arthralgia, myalgia Integumentary: Denies: rash, abrasion, lesions Neurological: Denies: headache, weakness, numbness, paresthesias, confusion, abnormal gait, vertigo Psychiatric: Denies: anxiety, depression, suicidal thoughts, homicidal thoughts , auditory hallucinations, visual hallucinations Endocrine: Denies: fatigue Hematological/Lymphatic: Denies: easy bleeding, easy bruising Allergic/Immunologic: Denies: facial swelling, urticaria Past Medical History - Past Medical History Medical history: Reports: no medical history, valvular heart disease Surgical history: Reports: appendectomy, orthopedic, other, other Psychiatric history: Reports: anxiety, depression, other - Social History Smoking Status: Never smoker Smokeless Tobacco Status: No Alcohol use: Reports: occasionally Drug use: Reports: cocaine, opiates, methamphetamine, prescription drug abuse, other Physical Exam - General Limitations: no limitations General appearance: alert, in no apparent distress - Head Head exam: atraumatic, normocephalic, normal inspection - Eye Eye exam: Present: normal appearance, PERRL, EOMI - ENT ENT exam: normal exam, normal oropharynx, mucous membranes moist - Neck Neck exam: Present: normal inspection, full ROM, trachea midline - Chest Chest inspection: Present: normal inspection, symmetric chest wall rise - Respiratory Respiratory exam: Present: normal lung sounds bilaterally - Cardiovascular Cardiovascular exam: Present: regular rate, normal rhythm, normal heart sounds - Abdominal Exam Abdominal exam: Present: soft, Non-Tender. Absent: tenderness, distention, guarding, rebound, rigidity - Extremities Exam Extremities exam: Present: normal inspection, full ROM. Absent: tenderness, pedal edema - Expanded Lower Extremity Exam Neurovascular/Tendon exam: Absent: motor deficit, sensory deficit, tendon deficit Gait: observed and normal - Back Exam Back exam: Present: normal inspection, full ROM. Absent: tenderness - Neurological Exam Neurological exam: Present: alert, oriented X3 - Psychiatric Psychiatric exam: Present: normal affect, normal mood - Skin Skin exam: Present: warm, dry, intact, normal color Course - Reevaluation(s) Reevaluation #1: Patient with possible vegetation on the heart valve. Consultation obtained with infectious disease who wants multiple blood cultures tonight and in the morning no antibiotics and then they will decide what to do from there. Time: 19:02 - Consultations Consultation #1: Discussed with Dr. Rose, he would like 3 blood cultures tonight, admit the patient and 3 in the morning and repeat the CHANTE. He specifically does not want antibiotics given as a patient is stable has no SIRS criteria. Time: 17:37 Consultation #2: Discussed with Dr. Florence, admit. Time: 19:02 Vital Signs Temperature 97.6 F 01/28/17 15:43 Pulse Rate 83 01/28/17 15:43 Respiratory Rate 16 01/28/17 15:43 Blood Pressure 126/81 01/28/17 15:43 O2 Sat by Pulse Oximetry 100 01/28/17 15:43 Temperature 97.6 F 01/28/17 15:43 Pulse Rate 89 01/28/17 17:44 Respiratory Rate 16 01/28/17 17:44 Blood Pressure 131/91 01/28/17 17:44 O2 Sat by Pulse Oximetry 100 01/28/17 17:44 Oxygen Delivery Oxygen Delivery Room Air Medical Decision Making - Lab Data Result diagrams: 01/28/17 17:12 01/28/17 17:12 Lab Results 01/28/17 01/28/17 01/28/17 Range/Units 17:12 17:12 17:12 WBC 6.9 (4.3-11.1) K/mcL RBC 4.90 (4.19-5.50) M/mcL Hgb 14.9 (12.9-16.9) g/dL Hct 44.9 (37.5-50.1) % MCV 91.6 (83.0-100.0) fL MCH 30.4 (28.0-33.3) pg MCHC 33.2 (31.6-35.5) g/dL RDW 11.9 (11.5-14.5) % Plt Count 278 (140-400) K/mcL MPV 11.2 (9.4-12.4) fL Immature Gran % 0.1 (0-4) % Seg Neutrophils % 61.0 % Lymphocytes % 29.4 % Monocytes % 7.1 % Eosinophils % 1.7 % Basophils % 0.7 % Neutrophils # 4.2 (1.6-8.9) K/mcL Lymphocytes # 2.0 (0.6-4.6) K/mcL Monocytes # 0.5 (0.0-1.3) K/mcL Eosinophils # 0.1 (0.0-0.6) K/mcL Basophils # 0.1 (0.0-0.2) K/mcL PT 11.7 (9.4-12.1) Seconds INR 1.1 APTT 34.4 (26.0-36.0) Seconds Sodium 141 (136-145) mEq/L Potassium 4.1 (3.5-4.5) mEq/L Chloride 106 (98-109) mEq/L Carbon Dioxide 28 (19-29) mEq/L BUN 8 (8-26) mg/dL Creatinine 1.18 (0.72-1.25) mg/dL Est GFR ( Amer) > 60 (> 60) Est GFR (Non-Af Amer) > 60 (> 60) BUN/Creatinine Ratio 7 (6-26) Glucose 116 H (70-99) mg/dL Calculated Osmolality 291 (280-300) Calcium 9.5 (8.6-10.8) mg/dL Troponin I (0-0.03) ng/mL 01/28/17 Range/Units 17:12 WBC (4.3-11.1) K/mcL RBC (4.19-5.50) M/mcL Hgb (12.9-16.9) g/dL Hct (37.5-50.1) % MCV (83.0-100.0) fL MCH (28.0-33.3) pg MCHC (31.6-35.5) g/dL RDW (11.5-14.5) % Plt Count (140-400) K/mcL MPV (9.4-12.4) fL Immature Gran % (0-4) % Seg Neutrophils % % Lymphocytes % % Monocytes % % Eosinophils % % Basophils % % Neutrophils # (1.6-8.9) K/mcL Lymphocytes # (0.6-4.6) K/mcL Monocytes # (0.0-1.3) K/mcL Eosinophils # (0.0-0.6) K/mcL Basophils # (0.0-0.2) K/mcL PT (9.4-12.1) Seconds INR APTT (26.0-36.0) Seconds Sodium (136-145) mEq/L Potassium (3.5-4.5) mEq/L Chloride (98-109) mEq/L Carbon Dioxide (19-29) mEq/L BUN (8-26) mg/dL Creatinine (0.72-1.25) mg/dL Est GFR ( Amer) (> 60) Est GFR (Non-Af Amer) (> 60) BUN/Creatinine Ratio (6-26) Glucose (70-99) mg/dL Calculated Osmolality (280-300) Calcium (8.6-10.8) mg/dL Troponin I 0.02 (0-0.03) ng/mL
[2017-01-28 17:33] LABS: Basophils # 0.1 K/mcL (0.0-0.2); Basophils % 0.7 %; Eosinophils # 0.1 K/mcL (0.0-0.6); Eosinophils % 1.7 %; Hematocrit 44.9 % (37.5-50.1); Hemoglobin 14.9 g/dL (12.9-16.9); Immature Granulocytes % 0.1 % (0-4); Lymphocytes % 29.4 %; Mean Corpuscular HGB Conc 33.2 g/dL (31.6-35.5); Mean Corpuscular Hemoglobin 30.4 pg (28.0-33.3); Mean Corpuscular Volume 91.6 fL (83.0-100.0); Mean Platelet Volume 11.2 fL (9.4-12.4); Monocytes # 0.5 K/mcL (0.0-1.3); Monocytes % 7.1 %; Neutrophils # 4.2 K/mcL (1.6-8.9); Platelet Count 278 K/mcL (140-400); Red Cell Distribution Width 11.9 % (11.5-14.5)
[2017-01-28 17:36] LABS: INR 1.1; Prothrombin Time 11.7 Seconds (9.4-12.1)
[2017-01-28 17:39] LABS: Activated Partial Thrombo Time 34.4 Seconds (26.0-36.0)
[2017-01-28 17:46] LABS: BUN/Creatinine Ratio 7 (6-26); Blood Urea Nitrogen 8 mg/dL (8-26); Calcium 9.5 mg/dL (8.6-10.8); Carbon Dioxide 28 mEq/L (19-29); Chloride 106 mEq/L (98-109); Glucose 116 mg/dL (70-99); Osmolality,Calculated 291 (280-300); Potassium 4.1 mEq/L (3.5-4.5); Sodium 141 mEq/L (136-145); eGFR For African Americans > 60 (> 60); eGFR For Non-African Americans > 60 (> 60)
[2017-01-28] MEDS ORDERED: *HR* LORazepam 1 MG TABLET PO ONE (17:48)
[2017-01-28] MEDS ORDERED: Naloxone 0.4 MG/ML INJ IVP PRN (19:53)
[2017-01-28] MEDS ORDERED: Ondansetron 4 MG/2 ML VIAL IVP PRN (19:53)
[2017-01-28] MEDS: Acetaminophen 325 MG TABLET PO PRN (20:55)
[2017-01-28 22:36] LABS: Bilirubin,Urine Negative (Negative); Blood,Urine Negative (Negative); Clarity,Urine Cloudy (Clear); Color,Urine Yellow (Yellow); Glucose,Urine (UA) Normal (Normal); Ketones,Urine Negative (Negative); Leukocyte Esterase,Urine Negative (Negative); Nitrite,Urine Negative (Negative); Protein,Urine Negative (Neg-Trace); Urobilinogen,Urine Normal (Normal)
[2017-01-28 22:38] LABS: Bacteria,Urine None Seen per hpf (None-Few); Hyaline Casts,Urine None Seen per lpf (None-Few); RBC,Urine 0-3 per hpf (0-3); Squamous Epithelial Cell,Urine None Seen per lpf (None-Few); WBC,Urine 0-3 per hpf (0-3)
[2017-01-28] MEDS: *HR* Morphine 2 MG/ML SYRINGE IVP PRN (22:38)
--- NOTE | 2017-01-28 22:38 | Internal Med History&Physical ---
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 Repeat transesophageal echo (2) Diaphoresis Current visit: No Status: Acute Dizziness and night sweats likely secondary to infective endocarditis patient was recently on IV antibiotics in the hospital, but left AGAINST MEDICAL ADVICE Plan as above (3) Drug abuse Current visit: No Status: Chronic Urine drug screen pending History of cocaine, Heroin and Amphetamine abuse Counseled about cessattion Social service consult (4) DVT prophylaxis Current visit: No Status: Acute Continue heparin subcutaneous Internal Medicine - H&P: HPI Chief complaint: Dizziness, night sweats Admitted From: Emergency Dept Plans for Post Hospital Care: Home History of present illness: Mr. Mehta is a 41 year old male with past medical history of recently diagnosed infective endocarditis of aortic bowel and aspiration pneumonia. He presents to the ED with complaints of dizziness and night sweats started a few weeks ago and gradually worsened. Patient was admitted on 01/03/2017 for sepsis secondary to infective endocarditis and aspiration pneumonia. Transesophageal echo revealed 6 mm pedunculated intracardiac vegetation on the aortic valve. Patient was started on IV antibiotics and was also evaluated by a infectious disease specialist. Patient did not want to get any more of his antibiotic treatment and left AGAINST MEDICAL ADVICE on 01/07/2017. On examination patient is awake and alert. Not in any distress. He is able to provide history. His girlfriend is at bedside. Patient states he was home this afternoon and suddenly felt dizzy and he is continued to have night sweats over the past few weeks. Patient apparently was in the ED last night but left AGAINST MEDICAL ADVICE. Initial workup in the ED today is negative. ED physician has discussed with given the patient's recent infective endocarditis diagnosis. is advised to hold antibiotics but to draw blood cultures today and in the morning. Antibiotics can be restarted after all cultures have been drawn. Patient does not have any signs of sepsis at this time. Patient denies shortness of breath or headache or palpitations or abdominal pain or vomiting or diarrhea. He does have subjective fever. He states he does have mild chest pain at present seems to be substernal. He is requesting pain medication. Patient states he is not done any illicit drugs in almost 7 months. Recent urine drug screen was positive for opiates and amphetamines. Patient states he has not used cocaine or heroin in several months. Patient is being admitted for infective endocarditis. Cultures will be drawn and antibiotics will be started as per ID recommendations. Patient has been explained about his condition and plan of care. He understood and agreed. No unanswered questions. CODE STATUS full code. Past Med Surg Social Fam HX - Past Medical History Medical history: valvular heart disease Psychiatric history: anxiety, depression - Past Surgical History Surgical History: appendectomy, orthopedic, other, sinus surgery - Social History Smoking Status: Never smoker Smokeless Tobacco Status: No Alcohol use: occasionally Drug use: cocaine, opiates, methamphetamine, prescription drug abuse - Family History Father Hx Family Cardiac Disorders: Yes (bypass x3) Hx Family Respiratory Disorders: Yes (COPD) Mother Hx Family Cardiac Disorders: Yes (bypass x4) Hx Family Endocrine Disorder: Yes (DM) Internal Medicine - H&P: Meds No Known Home Drugs 01/28/17 [History] Allergies Penicillins Allergy (Verified 01/07/17 15:43) Hives REPORTS HIVES WHILE BEING TREATED FOR POISON SUMAC, CANNOT REMEMBER MEDICATION , REPORTS NO SWELLING OF LIPS/TONGUE/THROAT All Systems PM: A 10-system review of systems was performed and is negative for pertinent findings except as documented above in the HPI. - Constitutional Constitutional: fatigue, fever(s), weakness - EENT Eyes: no blurry vision - Cardiovascular Cardiovascular ROS IM: chest pain, diaphoresis, lightheadedness, no dyspnea, no dyspnea on exertion, no orthopnea, no paroxysmal nocturnal dyspnea, no syncope - Respiratory Respiratory: no cough, no dyspnea, no dyspnea on exertion, no wheezing, no chest congestion - Gastrointestinal Gastrointestinal: no abdominal pain, no bloating, no cramping, no diarrhea, no hematochezia, no melena, no nausea, no vomiting - Genitourinary Genitourinary ROS male: no dysuria - Musculoskeletal Musculoskeletal ROS IM: no arthralgias - Neurological Neurological ROS: no abnormal gait, no abnormal speech, no dizziness, no loss of vision, no numbness, no tingling - Constitutional Vitals: Temp Pulse Resp BP Pulse Ox 98.1 F 98 16 124/75 98 01/28/17 20:30 01/28/17 22:00 01/28/17 22:00 01/28/17 22:00 01/28/17 22:00 General appearance: Present: A&O X 3, no acute distress, answers questions appropriately - Head Head exam: Present: atraumatic - Eye Eye exam: Present: EOMI - Neck Neck exam general surgery: Present: supple - Respiratory Respiratory exam: Present: CTAB. Absent: accessory muscle use, rales, rhonchi, wheezes, tachypnea - Cardiovascular Cardiovascular exam: Present: RRR, +S1, +S2, systolic murmur - GI/Abdominal GI/Abdominal exam: Present: soft, no peritoneal signs. Absent: distended, firm , guarding, rigid, tenderness - Extremities Exam Extremities exam: Present: radial pulses palpable and symetrical. Absent: cyanotic, pedal edema, tenderness - Neurological Exam Neurological exam: Present: alert, oriented X3, no focal deficits. Absent: facial droop, speech deficit Internal Med - H&P Results - Labs CBC & Chem 7: 01/28/17 17:12 01/28/17 17:12 Labs: Cardiac Enzymes 01/28/17 Range/Units 20:59 Troponin I 0.02 (0-0.03) ng/mL
[2017-01-28 22:46] LABS: Amphetamine Screen,Urine Positive ng/mL (Cutoff=1000); Barbiturate Screen,Urine Negative ng/mL (Cutoff=200); Benzodiazepines Screen,Urine Negative ng/mL (Cutoff=200); Cannabinoid Screen,Urine Negative ng/mL (Cutoff = 50); Cocaine Screen,Urine Negative ng/mL (Cutoff= 300); Opiate Screen,Urine Negative ng/mL (Cutoff=300); Phencyclidine Screen,Urine Negative ng/mL (Cutoff=25)
[2017-01-29] MEDS ORDERED: *HR* Morphine 2 MG/ML SYRINGE IVP ONE (02:12)
[2017-01-29 04:30] LABS: Basophils % 0.6 %; Eosinophils # 0.2 K/mcL (0.0-0.6); Eosinophils % 2.3 %; Hematocrit 42.2 % (37.5-50.1); Immature Granulocytes % 0.3 % (0-4); Lymphocytes # 2.5 K/mcL (0.6-4.6); Lymphocytes % 36.1 %; Mean Corpuscular HGB Conc 33.2 g/dL (31.6-35.5); Mean Corpuscular Hemoglobin 30.3 pg (28.0-33.3); Mean Corpuscular Volume 91.3 fL (83.0-100.0); Mean Platelet Volume 10.8 fL (9.4-12.4); Monocytes # 0.5 K/mcL (0.0-1.3); Monocytes % 6.8 %; Neutrophils # 3.8 K/mcL (1.6-8.9); Platelet Count 256 K/mcL (140-400); Red Blood Count 4.62 M/mcL (4.19-5.50); Red Cell Distribution Width 11.9 % (11.5-14.5); Segmented Neutrophils % 53.9 %
[2017-01-29 04:43] LABS: BUN/Creatinine Ratio 8 (6-26); Blood Urea Nitrogen 11 mg/dL (8-26); Calcium 8.9 mg/dL (8.6-10.8); Carbon Dioxide 29 mEq/L (19-29); Chloride 106 mEq/L (98-109); Glucose 94 mg/dL (70-99); Osmolality,Calculated 287 (280-300); Sodium 139 mEq/L (136-145); eGFR For African Americans > 60 (> 60); eGFR For Non-African Americans 59 (> 60)
[2017-01-29] MEDS: *HR* Heparin 5,000 UNIT/ML VIAL SQ SCH ×2 (05:14→18:29)
[2017-01-29] MEDS: Famotidine 20 MG/2 ML VIAL IVP SCH ×2 (05:14→18:30)
[2017-01-29] MEDS ORDERED: ALPRAZolam 0.5 MG TABLET PO ONE (07:42)
[2017-01-29] MEDS: *HR* Morphine 2 MG/ML SYRINGE IVP PRN ×4 (07:50→23:18)
--- NOTE | 2017-01-29 13:32 | Internal Med Progress Note ---
Date of Encounter: 01/29/17 Time of Encounter: 13:31 - Assessment and plan (1) Infective endocarditis of aortic valve Current Visit: No Status: Acute Assessment and plan: Recently diagnosed with IE of AV No reported fevers, chills, or diaphoresis since hospitalization ID consultation requested f/u blood cultures continue empiric IV abx therapy pharmacy to dose Vancomycin and monitor trough continue tele monitoring (2) Drug abuse Current Visit: No Status: Chronic Assessment and plan: History of cocaine, Heroin and Amphetamine abuse Pt denying IV drug abuse Tox screen positive for amphetamines f/u vp digital marketing social media and crm evaluation (3) Diaphoresis Current Visit: No Status: Resolved (4) DVT prophylaxis Current Visit: No Status: Acute Assessment and plan: Heparin sQ - Subjective Interval history: Patient seen and examined with girlfriend present at bedside. Resting in bed and appears to be in no distress. Denies any fevers or chills. Demanding xanax for anxiety however during my evaluation he was noted to be eating his lunch comfortably and did not appear to be anxious. Vitals wnl. Denies any history of IV drug abuse and states he left AMA during his last hospitalization because he was allowed to be discharged to home with IV line. - Constitutional Vitals: Temp Pulse Resp BP Pulse Ox 97.9 F 97 17 113/75 98 01/29/17 12:04 01/29/17 12:04 01/29/17 12:04 01/29/17 12:04 01/29/17 12:04 General appearance: Present: A&O X 3, no acute distress, answers questions appropriately - Head Head exam: Present: atraumatic, normocephalic - Eye Eye exam: Present: normal appearance, conjuntiva pink, sclera anicteric - Respiratory Respiratory exam: Present: CTAB. Absent: respiratory distress, wheezes - Cardiovascular Cardiovascular exam: Present: RRR, +S1, +S2. Absent: diastolic murmur, gallop, rubs, systolic murmur - GI/Abdominal GI/Abdominal exam: Present: normal bowel sounds, soft, no peritoneal signs. Absent: distended, tenderness - Extremities Exam Extremities exam: Present: warm, radial pulses palpable and symetrical. Absent : calf tenderness, cyanotic, pedal edema - Neurological Exam Neurological exam: Present: oriented X3, no focal deficits. Absent: pronater drift, facial droop, speech deficit - Psychiatric Psychiatric exam: Present: normal affect, normal mood Internal Medicine: Result - Labs CBC & Chem 7: 01/29/17 04:18 01/29/17 04:18 Labs: Short CBC 01/29/17 Range/Units 04:18 WBC 7.0 (4.3-11.1) K/mcL Hgb 14.0 (12.9-16.9) g/dL Hct 42.2 (37.5-50.1) % Plt Count 256 (140-400) K/mcL Neutrophils # 3.8 (1.6-8.9) K/mcL BMP 01/29/17 04:18 Sodium 139 Potassium 4.0 Chloride 106 Carbon Dioxide 29 BUN 11 Creatinine 1.33 H Glucose 94 Calcium 8.9 Cardiac Enzymes 01/28/17 01/29/17 01/29/17 Range/Units 20:59 04:18 08:38 Troponin I 0.02 0.02 0.03 (0-0.03) ng/mL Urine 01/28/17 Range/Units 22:19 Urine Color Yellow (Yellow) Urine Clarity Cloudy A (Clear) Urine pH 6.0 (5.0-8.0) pH Units Ur Specific [place] 1.020 (1.010-1.025) Urine Protein Negative (Neg-Trace) mg/dL Urine Glucose (UA) Normal (Normal) mg/dL - ABG Interpretation ABG results: PT/INR, D-dimer PT 11.7 Seconds (9.4-12.1) 01/28/17 17:12 Consult Discharge Plan - Plan Referrals: Hernan Mccord DO [Primary Care Provider] -
[2017-01-29] MEDS ORDERED: Vancomycin 1,000 MG in D5% in Water 250 ML IVPB SCH (18:00)
[2017-01-29] MEDS: Cefepime HCl 1,000 MG in D5% in Water (Mini-Bag+) 100 ML IVPB SCH (18:30)
[2017-01-29] MEDS: Vancomycin 1,000 MG in D5% in Water 250 ML IVPB SCH (21:36)
[2017-01-30] MEDS: *HR* Morphine 2 MG/ML SYRINGE IVP PRN ×5 (03:56→22:29)
[2017-01-30 04:23] LABS: Basophils # 0.1 K/mcL (0.0-0.2); Basophils % 0.7 %; Eosinophils # 0.2 K/mcL (0.0-0.6); Eosinophils % 3.4 %; Hematocrit 40.7 % (37.5-50.1); Hemoglobin 13.6 g/dL (12.9-16.9); Immature Granulocytes % 0.3 % (0-4); Lymphocytes # 3.1 K/mcL (0.6-4.6); Lymphocytes % 42.6 %; Mean Corpuscular HGB Conc 33.4 g/dL (31.6-35.5); Mean Corpuscular Hemoglobin 30.6 pg (28.0-33.3); Mean Corpuscular Volume 91.5 fL (83.0-100.0); Mean Platelet Volume 11.2 fL (9.4-12.4); Monocytes # 0.6 K/mcL (0.0-1.3); Monocytes % 7.7 %; Neutrophils # 3.3 K/mcL (1.6-8.9); Platelet Count 241 K/mcL (140-400); Red Blood Count 4.45 M/mcL (4.19-5.50); Red Cell Distribution Width 11.9 % (11.5-14.5); Segmented Neutrophils % 45.3 %
[2017-01-30 04:38] LABS: BUN/Creatinine Ratio 7 (6-26); Blood Urea Nitrogen 9 mg/dL (8-26); Calcium 8.9 mg/dL (8.6-10.8); Carbon Dioxide 30 mEq/L (19-29); Chloride 105 mEq/L (98-109); Glucose 94 mg/dL (70-99); Magnesium 1.8 mg/dL (1.6-2.6); Osmolality,Calculated 286 (280-300); Phosphorous 3.8 mg/dL (2.3-4.7); Potassium 3.8 mEq/L (3.5-4.5); Sodium 139 mEq/L (136-145); eGFR For African Americans > 60 (> 60); eGFR For Non-African Americans > 60 (> 60)
[2017-01-30] MEDS: Cefepime HCl 1,000 MG in D5% in Water (Mini-Bag+) 100 ML IVPB SCH ×2 (05:53→17:37)
[2017-01-30] MEDS: Famotidine 20 MG/2 ML VIAL IVP SCH ×2 (05:54→17:38)
[2017-01-30] MEDS: *HR* Heparin 5,000 UNIT/ML VIAL SQ SCH ×2 (05:54→17:36)
[2017-01-30] MEDS ORDERED: Vancomycin 1,000 MG in D5% in Water 250 ML IVPB SCH (06:00)
[2017-01-30] MEDS: Vancomycin 1,000 MG in D5% in Water 250 ML IVPB SCH ×2 (08:07→19:43)
--- NOTE | 2017-01-30 12:26 | Internal Med Progress Note ---
Date of Encounter: 01/30/17 Time of Encounter: 12:24 - Assessment and plan (1) Infective endocarditis of aortic valve Current Visit: No Status: Acute Assessment and plan: Recently diagnosed with IE of AV No reported fevers, chills, or diaphoresis since hospitalization Awaiting ID consultation f/u blood cultures continue empiric IV abx therapy pharmacy to dose Vancomycin and monitor trough continue tele monitoring will repeat 2D echo (2) Drug abuse Current Visit: No Status: Chronic Assessment and plan: History of cocaine, Heroin and Amphetamine abuse Pt denying IV drug abuse Tox screen positive for amphetamines f/u social sciences lecturer evaluation (3) Diaphoresis Current Visit: No Status: Resolved (4) DVT prophylaxis Current Visit: No Status: Acute Assessment and plan: Heparin sQ - Subjective Interval history: Patient seen and examined with girlfriend present at bedside. Resting in bed and appears to be in no distress. Was on the phone during my evaluation. As he finished his phone conversation, he continued to demand something for his anxiety, even though he appears to be completely comfortable. He continues to exhibit drug seeking behavior as reported by the nursing notes. No overnight issues reported. - Constitutional Vitals: Temp Pulse Resp BP Pulse Ox 98.2 F 92 16 115/73 98 01/30/17 11:32 01/30/17 11:32 01/30/17 11:32 01/30/17 11:32 01/30/17 11:32 General appearance: Present: A&O X 3, no acute distress, answers questions appropriately - Head Head exam: Present: atraumatic, normocephalic - Eye Eye exam: Present: conjuntiva pink, sclera anicteric - Respiratory Respiratory exam: Present: CTAB. Absent: accessory muscle use, rales, rhonchi, wheezes - Cardiovascular Cardiovascular exam: Present: RRR, +S1, +S2. Absent: diastolic murmur, gallop, rubs, systolic murmur - GI/Abdominal GI/Abdominal exam: Present: normal bowel sounds, soft, no peritoneal signs. Absent: distended, tenderness - Extremities Exam Extremities exam: Present: warm, radial pulses palpable and symetrical. Absent : pedal edema - Neurological Exam Neurological exam: Present: alert, oriented X3 - Psychiatric Psychiatric exam: Present: normal affect, normal mood Internal Medicine: Result - Labs CBC & Chem 7: 01/30/17 03:44 01/30/17 03:44 Labs: Short CBC 01/30/17 Range/Units 03:44 WBC 7.2 (4.3-11.1) K/mcL Hgb 13.6 (12.9-16.9) g/dL Hct 40.7 (37.5-50.1) % Plt Count 241 (140-400) K/mcL Neutrophils # 3.3 (1.6-8.9) K/mcL BMP 01/30/17 03:44 Sodium 139 Potassium 3.8 Chloride 105 Carbon Dioxide 30 H BUN 9 Creatinine 1.24 Glucose 94 Calcium 8.9 - ABG Interpretation ABG results: PT/INR, D-dimer PT 11.7 Seconds (9.4-12.1) 01/28/17 17:12 Consult Discharge Plan - Plan Referrals: Hernan Mccord DO [Primary Care Provider] -
[2017-01-30] MEDS: Acetaminophen 325 MG TABLET PO PRN (17:38)
[2017-01-30] MEDS ORDERED: ALPRAZolam 1 MG TABLET PO ONE (18:08)
[2017-01-31] MEDS: Cefepime HCl 1,000 MG in D5% in Water (Mini-Bag+) 100 ML IVPB SCH (05:23)
[2017-01-31] MEDS: Famotidine 20 MG/2 ML VIAL IVP SCH (05:23)
[2017-01-31] MEDS: *HR* Morphine 2 MG/ML SYRINGE IVP PRN ×2 (05:24→10:26)
[2017-01-31] MEDS: *HR* Heparin 5,000 UNIT/ML VIAL SQ SCH ×2 (05:24→17:16)
[2017-01-31 07:26] LABS: BUN/Creatinine Ratio 11 (6-26); Blood Urea Nitrogen 14 mg/dL (8-26); Calcium 9.1 mg/dL (8.6-10.8); Carbon Dioxide 34 mEq/L (19-29); Chloride 101 mEq/L (98-109); Glucose 94 mg/dL (70-99); Magnesium 2.1 mg/dL (1.6-2.6); Osmolality,Calculated 288 (280-300); Phosphorous 3.7 mg/dL (2.3-4.7); Potassium 4.1 mEq/L (3.5-4.5); Sodium 139 mEq/L (136-145); eGFR For African Americans > 60 (> 60); eGFR For Non-African Americans > 60 (> 60)
[2017-01-31 07:56] LABS: Basophils # 0.1 K/mcL (0.0-0.2); Basophils % 0.9 %; Eosinophils # 0.2 K/mcL (0.0-0.6); Eosinophils % 3.1 %; Hematocrit 45.3 % (37.5-50.1); Hemoglobin 15.1 g/dL (12.9-16.9); Immature Granulocytes % 0.5 % (0-4); Lymphocytes # 2.4 K/mcL (0.6-4.6); Lymphocytes % 32.1 %; Mean Corpuscular HGB Conc 33.3 g/dL (31.6-35.5); Mean Corpuscular Hemoglobin 30.4 pg (28.0-33.3); Mean Corpuscular Volume 91.1 fL (83.0-100.0); Mean Platelet Volume 11.5 fL (9.4-12.4); Monocytes # 0.6 K/mcL (0.0-1.3); Monocytes % 8.2 %; Neutrophils # 4.1 K/mcL (1.6-8.9); Platelet Count 254 K/mcL (140-400); Red Blood Count 4.97 M/mcL (4.19-5.50); Red Cell Distribution Width 11.9 % (11.5-14.5); Segmented Neutrophils % 55.2 %
[2017-01-31] MEDS: Vancomycin 1,000 MG in D5% in Water 250 ML IVPB SCH (08:48)
[2017-01-31] MEDS ORDERED: Vancomycin 500 MG in D5% in Water (Mini-Bag+) 100 ML IVPB ONE (09:00)
--- NOTE | 2017-01-31 09:24 | Infectious Disease Consult ---
Date of Encounter: 01/31/17 Time of Encounter: 09:21 Assessment and Plan (1) Aortic valve vegetation Status: Acute Assessment and plan: Patient has met only one SIRS criteria since admission ( tachycardia). Blood cultures from last admission 01/03/17 and 01/05/17 show no growth to date. Patient left AMA on 01/07/17 without antibiotics and did not follow up with ID. Blood cultures from 01/28/17 and 01/29/17 show no growth to date. He is afebrile and has normal WBC count. currently the patient is on Cefepime 1 gram Q12 hours. Also on Vancomycin with Vancomycin trough of 13.6. Coxiella titers from previous visit were negative. RF negative. No vascular or immunologic phenomena seen on exam. Repeat TTE was ordered and is pending. Patient only meets one major [place] criteria at this time. Endocarditis is unlikely. Recommendations: Patient only meets one [place] criteria of abnormal Echo findings. Additionally patient has been afebrile with normal WBC count. It is my impression that Infectious endocarditis is unlikely. Vegetation possibly from noninfectious source. Recommend discontinuing antibiotics and observing clinically at this time. (2) Polysubstance abuse Status: Acute Assessment and plan: patient denies IV drug abuse but admits to snorting percocet. UDS also positive for amphetamines. management per primary team. Infectious Disease HPI - Data of Consult Patient: new to practice Consult date: 01/31/17 Requesting Physician: Lucía Cherry MD Primary Care Provider: Hernan Mccord DO - Consult Narrative Reason for consult: Infective endocarditis/ Possible vegetations on the aortic valve. History of present illness: Mr. Mehta is a 41 year old male without significant past medical history that was admitted to [facility] on 01/28/17 for infective endocarditis. Infectious disease is consulted on 01/31/17 for infective endocardititis. MR. Mehta is a 41 y.o. male with history of substance abuse. However he denies ever using needles. HE was recently admitted to [facility] from 01/04/17 for suspected drug overdose and aspiration pneumonia. He would have no growth from his blood cultures from 01/03/17 and from 01/05/17. However a CHANTE would reveal "Evidence of a 6mm pedunculated and mobile intracardiac vegetation on the right coronary cusp - aortic valve consistent with endocarditis. " He was treated with Vancomycin, Cefepime, and Levofloxacin during this hospitalization for his pneumonia and infective endocarditiis. However the patient would leave AMA on 01/07/17. Since admission the patient has met only one SIRS criteria of tachycardia. He has been afebrile and has had a normal WBC count. Tmax has been 98.7. Blood cultures were drawn on 01/28/17 which were 3/3 NGTD and on 01/29/17 which were 3 /3 NGTD. He would also have a CXR on 01/28/17 that revealed no acute abnormalities. Today Mr. Mehta states that he came to the hospital because he was having presyncope when standing as well as night sweats. He reports no chest pain or palpitations. He denies any skin rashes or lesions. HE denies any rashes, denies any recent dental procedures. He denies ever having used IV drugs. He states that he has " only snorted percocets". He denies any recent human or animal bites. He has no occupational exposure to livestock. At this time he denies any dyspnea, cough, wheeze, dysuria, and diarrhea. He has no further complaints or concerns at this time. CC: Lucía Cherry MD Past Med Surg Social Fam HX - Past Medical History Medical history: valvular heart disease (vegetation seen on previous CHANTE) Psychiatric history: anxiety, depression - Past Surgical History Surgical History: appendectomy, orthopedic, other (right shoulder), sinus surgery - Social History Smoking Status: Never smoker Smokeless Tobacco Status: No Alcohol use: occasionally (once every 2-3 weeks. States he no longer " gets drunk" He will only drink one tall boy at the most. ) Drug use: opiates, methamphetamine, prescription drug abuse Current living situation: Home - Independent Activity Level: Independent ambulation Recent Out of Country Travel Within the Last 8 Weeks: No Exposure or Possible Exposure to Illness During Travel: No - Family History Father Hx Family Cardiac Disorders: Yes (bypass x3) Hx Family Respiratory Disorders: Yes (COPD) Mother Hx Family Cardiac Disorders: Yes (bypass x4 at approximately 61 years of age. ) Hx Family Endocrine Disorder: Yes (DM) Infectious Disease-CN:Meds No Known Home Drugs 01/28/17 [History] Allergies Penicillins Allergy (Verified 01/07/17 15:43) Hives REPORTS HIVES WHILE BEING TREATED FOR POISON SUMAC, CANNOT REMEMBER MEDICATION , REPORTS NO SWELLING OF LIPS/TONGUE/THROAT Review of systems: Constitutional: He denies fever but admits to night sweats, admits to a 10 pound weight loss over last 4 weeks that was unintentional. HEENT: He denies any hearing or vision changes, headaches, sore throat, neck masses. Heart: As per history of present illness. Lungs: Denies any cough, wheeze, hemoptysis, dyspnea. GI: Denies nausea, vomiting, diarrhea, abdominal pain : Denies dysuria or hematuria. Musculoskeletal: Denies any new aches or pains. Integument: Denies rashes or lesions. Endocrine: Denies polydipsia or polyuria. Neuro: Denies any focal motor or sensory deficits. Denies history of seizures. Heme: He denies any easy bleeding or bruising. Travel: No recent travel. Diet: No recent change in diet or ingestion of undercooked meats. Exposure: Denies any recent sick contacts. denies any exposure to livestock. Animal bites: denies. Dose have a pit bull that lives in the house but denies bites or scratches. Insect bites: denies. Exam - Constitutional Vitals: Temp Pulse Resp BP Pulse Ox 97.7 F 73 16 108/71 97 01/31/17 06:40 01/31/17 06:40 01/31/17 06:40 01/31/17 06:40 01/31/17 06:40 Exam: Gen.: This is a well-developed well-nourished 41-year-old male who is currently alert and orientated to person place time and situation. Is currently lying in bed with his significant other appears to be comfortable and in no acute distress at this time. HEENT: The head is normocephalic and atraumatic. Pupils are equally round and reactive light and accommodation, anicteric sclera, dentition intact, moist mucous membranes, the uvula tongue and trachea are all midline. There is no cervical submandibular or supraclavicular lymphadenopathy palpable on exam. Heart: Regular rate and rhythm without murmurs rubs or gallops. No JVD. Normal capillary refill. Lungs: Clear to auscultation bilaterally with normal effort of breathing. Musculoskeletal: Grossly normal for age no gross forays noted. Spine: Normal curvature the spine no point tenderness with palpation of the spine. Extremities: There is no clubbing, cyanosis or edema. Integument: No rashes or lesions. Specifically there is no splinter hemorrhages , osler nodes, Janeway lesions. He has multiple tattoos. Psych: Patient is alert and orientated cooperates fully with both history and physical. Appears to have a normal affect at this time. Infectious Disease CN: Results - Labs CBC & Chem 7: 02/01/17 06:02 02/01/17 06:02 Cultures: Cultures 01/29/17 04:18 Blood Culture - Preliminary Peripheral Venipuncture No growth. 01/29/17 04:13 Blood Culture - Preliminary Peripheral Venipuncture No growth. 01/29/17 04:18 Blood Culture - Preliminary Peripheral Venipuncture No growth. Serology: Serology 01/28/17 Range/Units 22:19 Urine Color Yellow (Yellow) Urine Clarity Cloudy A (Clear) Urine pH 6.0 (5.0-8.0) pH Units Ur Specific [place] 1.020 (1.010-1.025) Urine Protein Negative (Neg-Trace) mg/dL Urine Glucose (UA) Normal (Normal) mg/dL Urine Ketones Negative (Negative) mg/dL Urine Blood Negative (Negative) Urine Nitrite Negative (Negative) Urine Bilirubin Negative (Negative) Urine Urobilinogen Normal (Normal) mg/dL Ur Leukocyte Esterase Negative (Negative) Urine Microscopic RBC 0-3 (0-3) per hpf Urine Microscopic WBC 0-3 (0-3) per hpf Ur Squamous Epith Cells None Seen (None-Few) per lpf Urine Bacteria None Seen (None-Few) per hpf Hyaline Casts None Seen (None-Few) per lpf Consult Discharge Plan - Plan Additional Instructions: Please follow up with your primary care physician within five days after your discharge from the hospital. Please obtain CHANTE (transesophageal echocardiogram) in three months and follow up with Infectious disease (Dr. Saleh) ten days later. Substance abuse abstinence is highly advised Referrals: Hernan Mccord DO [Primary Care Provider] - - Attending Attestation I examined this patient and my medical decision-making was reviewed with the Resident Physician. I agree with the documented findings, disposition and treatment plan as described except to the extent set forth below. This is in addendum to original report dictated by Dr. Jerome Lynn resident physician, please refer to Dr. Perales's note for full detail. Patient is a 41-year-old gentleman that is known to our service that we have seen in the past for pneumonia. An echocardiogram was done at that time which revealed a mass on the aortic valve concerning for endocarditis. Patient was initially treated for possible culture-negative endocarditis. Coxiella Leela serology was obtained and rheumatoid factor both of which came back negative. Patient signed out and Anthony medical advice. Patient came back last to the emergency department complaining of dizziness and tachycardia. At that time I received a phone call from the resident physician I asked him not to start any antibiotics and to obtain blood cultures 3. That wasn't done and not sure why the patient refused or the resident physician. Patient came again to the emergency department on Tuesday and I received a phone call from the ER attending. At that time patient had no source criteria no fevers no leukocytosis but was complaining of feeling weak and tired. I asked him not start antibiotics and get blood cultures 3. Patient was admitted and over the weekend vancomycin and cefepime were started. Patient's cultures have been all negative so far. Physical exam did not reveal any endocarditis stigmata. Patient overall feels okay no signs of septic emboli no joint effusion no back pain physical exam is unremarkable. At this point this presents a complicated picture. I really don't think he has endocarditis much less culture-negative endocarditis we have multiple cultures although been negative. I think it's warranted to just observe a and repeat a CHANTE in a few weeks and see how he does. I will start vancomycin and cefepime and observe. I will repeat blood cultures if he has any signs of infection or fevers. Patient also adamantly states that he never then any IV drugs. He only has one major do criteria no minor [place] criteria.
--- NOTE | 2017-01-31 12:10 | Internal Med Progress Note ---
Date of Encounter: 01/31/17 Time of Encounter: 12:10 - Assessment and plan (1) Infective endocarditis of aortic valve Current Visit: No Status: Acute Assessment and plan: Recently diagnosed with IE of AV No reported fevers, chills, or diaphoresis since hospitalization Awaiting ID consultation f/u blood cultures continue empiric IV abx therapy pharmacy to dose Vancomycin and monitor trough continue tele monitoring Repeat 2D echo reported no evidence of vegetations Will follow up with ID in regards to abx continuation and discharge (2) Drug abuse Current Visit: No Status: Chronic Assessment and plan: History of cocaine, Heroin and Amphetamine abuse Pt denying IV drug abuse Tox screen positive for amphetamines (3) Diaphoresis Current Visit: No Status: Resolved (4) DVT prophylaxis Current Visit: No Status: Acute Assessment and plan: Heparin sQ - Subjective Interval history: Patient seen and examined with girlfriend present at bedside. Pt was sleeping with his girlfriend in bed and denied any discomfort at this time. He does however continues to harass the nursing staff demanding pain medications. He does not demonstrate any clinical signs of being in painful distress. - Constitutional Vitals: Temp Pulse Resp BP Pulse Ox 97.7 F 73 16 108/71 97 01/31/17 06:40 01/31/17 06:40 01/31/17 06:40 01/31/17 06:40 01/31/17 06:40 General appearance: Present: A&O X 3, no acute distress, answers questions appropriately - Head Head exam: Present: atraumatic, normocephalic - Eye Eye exam: Present: conjuntiva pink, sclera anicteric - Respiratory Respiratory exam: Present: CTAB. Absent: accessory muscle use, rales, rhonchi, wheezes - Cardiovascular Cardiovascular exam: Present: RRR, +S1, +S2. Absent: diastolic murmur, gallop, rubs, systolic murmur - GI/Abdominal GI/Abdominal exam: Present: normal bowel sounds, soft, no peritoneal signs. Absent: distended, tenderness - Extremities Exam Extremities exam: Present: warm, radial pulses palpable and symetrical. Absent : calf tenderness, cyanotic, pedal edema - Neurological Exam Neurological exam: Present: alert, oriented X3 - Psychiatric Psychiatric exam: Present: normal affect, normal mood Internal Medicine: Result - Labs CBC & Chem 7: 01/31/17 06:38 01/31/17 06:38 Labs: Short CBC 01/31/17 Range/Units 06:38 WBC 7.4 (4.3-11.1) K/mcL Hgb 15.1 D (12.9-16.9) g/dL Hct 45.3 (37.5-50.1) % Plt Count 254 (140-400) K/mcL Neutrophils # 4.1 (1.6-8.9) K/mcL BMP 01/31/17 06:38 Sodium 139 Potassium 4.1 Chloride 101 Carbon Dioxide 34 H BUN 14 Creatinine 1.23 Glucose 94 Calcium 9.1 - ABG Interpretation ABG results: PT/INR, D-dimer PT 11.7 Seconds (9.4-12.1) 01/28/17 17:12 Consult Discharge Plan - Plan Referrals: Hernan Mccord DO [Primary Care Provider] -
--- NOTE | 2017-01-31 12:59 | Electrocardiograph Report ---
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
--- NOTE | 2017-01-31 14:29 | Electrocardiograph Report ---
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
[2017-01-31] MEDS: *HR* OxyCODONE/APAP 5/325 TABLET PO PRN (16:03)
[2017-01-31] MEDS: Famotidine 20 MG TABLET PO SCH (20:51)
[2017-01-31] MEDS ORDERED: Vancomycin 1,250 MG in D5% in Water 250 ML IVPB SCH (22:00)
[2017-02-01] MEDS: *HR* OxyCODONE/APAP 5/325 TABLET PO PRN ×2 (02:00→08:23)
[2017-02-01] MEDS: *HR* Heparin 5,000 UNIT/ML VIAL SQ SCH (05:47)
[2017-02-01 06:48] LABS: Basophils # 0.1 K/mcL (0.0-0.2); Basophils % 0.9 %; Eosinophils # 0.3 K/mcL (0.0-0.6); Eosinophils % 4.3 %; Hematocrit 44.6 % (37.5-50.1); Hemoglobin 14.9 g/dL (12.9-16.9); Immature Granulocytes % 0.8 % (0-4); Lymphocytes # 2.4 K/mcL (0.6-4.6); Lymphocytes % 31.4 %; Mean Corpuscular HGB Conc 33.4 g/dL (31.6-35.5); Mean Corpuscular Hemoglobin 30.5 pg (28.0-33.3); Mean Corpuscular Volume 91.2 fL (83.0-100.0); Mean Platelet Volume 11.2 fL (9.4-12.4); Monocytes # 0.7 K/mcL (0.0-1.3); Monocytes % 9.1 %; Neutrophils # 4.1 K/mcL (1.6-8.9); Platelet Count 258 K/mcL (140-400); Red Blood Count 4.89 M/mcL (4.19-5.50); Red Cell Distribution Width 11.8 % (11.5-14.5); Segmented Neutrophils % 53.5 %
[2017-02-01 06:54] VITALS: BP 104/72
[2017-02-01 07:06] LABS: BUN/Creatinine Ratio 13 (6-26); Blood Urea Nitrogen 16 mg/dL (8-26); Calcium 9.1 mg/dL (8.6-10.8); Carbon Dioxide 29 mEq/L (19-29); Chloride 103 mEq/L (98-109); Glucose 82 mg/dL (70-99); Magnesium 2.3 mg/dL (1.6-2.6); Osmolality,Calculated 286 (280-300); Phosphorous 3.1 mg/dL (2.3-4.7); Potassium 4.2 mEq/L (3.5-4.5); Sodium 138 mEq/L (136-145); eGFR For African Americans > 60 (> 60); eGFR For Non-African Americans > 60 (> 60)
[2017-02-01] MEDS ORDERED: Aminoglycoside Consult 1 EACH MC ONE (07:48)
[2017-02-01] MEDS: Famotidine 20 MG TABLET PO SCH (08:24)
--- NOTE | 2017-02-01 10:22 | Discharge Summary ---
Date of Encounter: 02/01/17 Time of Encounter: 10:14 - Discharge Diagnosis (1) Infective endocarditis of aortic valve Priority: Primary Status: Resolved (2) Drug abuse Priority: Secondary Status: Chronic (3) Diaphoresis Priority: Secondary Status: Resolved (4) DVT prophylaxis Priority: Secondary Status: Acute - Discharge Medications Home Medications: No Known Home Drugs 01/28/17 [History] Allergies/Adverse Reactions: Allergies Penicillins Allergy (Verified 01/07/17 15:43) Hives REPORTS HIVES WHILE BEING TREATED FOR POISON SUMAC, CANNOT REMEMBER MEDICATION , REPORTS NO SWELLING OF LIPS/TONGUE/THROAT Procedures/tests Complete & Pending: Procedures Performed prior 72 hours Category Date Time Status EV limited echocardiogram Stat Y 01/30/17 12:23 Completed Date of admission: 01/28/17 19:53 Primary care physician: Hernan Mccord DO Consults: 01/28/17 20:39 Consult to Nutrition [CONS] Routine Comment: Consulting Provider: NUTRITION Reason for Dietary Consult: MST Score 01/28/17 22:51 Consult to [employer] Vault Attendant [CONS] Routine Reason for SW Consult: Discharge planning Discharging clinician: Lucía Cherry Anticipated date of discharge: 02/01/17 - Patient Status Disposition: Home, Self-Care Condition: Good Functional capacity at discharge: independent ambulation Overall status at discharge: patient is back to baseline - Discharge Instructions Follow Up With: Hernan Mccord DO [Primary Care Provider] - Additional Instructions: Please follow up with your primary care physician within five days after your discharge from the hospital. Please obtain CHANTE (transesophageal echocardiogram) in three months and follow up with Infectious disease (Dr. Saleh) ten days later. Substance abuse abstinence is highly advised - Diet and Activity Activity: resume usual activities as tolerated Diet: advance to your usual diet Hospital course: Mr. Mehta is a 41 year old male with PMH of infective endocarditis and polysubstance abuse (questionable IVDA) who was admitted for management of dizziness and night sweats. Patient was recently hospitalized and diagnosed with IE with vegetation of AV however had left AMA prior to finishing his treatment. ID was consulted by the ER physician and decision to admit the patient for close monitoring. Pt was started on empiric IV abx. He remained afebrile, no leukocytosis throughout the duration of his hospitalization. He was seen by infectious disease specialist yesterday and abx were discontinued. He has remained in no distress and has been expliciting drug seeking behavior throughout the course of his admission. His tox screen was positive for amphetamines upon arrival to the ER which could contribute to the tachycardia reported initially during his admission. I spoke with Dr. Saleh, patient does not need abx at this time and can be discharged with an outpatient CHANTE scheduled in 3 months and follow up with ID ten days after the CHANTE. Pt is currently hemodynamically stable and will be discharged to home with follow up with PCP. Pt demonstrates understanding of his diagnosis and agrees with the discharge care and plan. Of note: Pt denied any substance abuse and adamantly denied IVDA even though his tox screen was positive for amphetamines and positive for Benzos, Cocaine, Opiates in the past. - Time Spent with Patient Total time spent providing and/or coordinating discharge services: Less than 30 minutes - Constitutional Vitals: Temp Pulse Resp BP Pulse Ox 97.8 F 90 18 104/72 97 02/01/17 06:53 02/01/17 06:53 02/01/17 06:53 02/01/17 06:53 02/01/17 06:53 General appearance: Present: A&O X 3, no acute distress, answers questions appropriately - Head Head exam: Present: atraumatic, normocephalic - Eye Eye exam: Present: conjuntiva pink, sclera anicteric - Respiratory Respiratory exam: Present: CTAB. Absent: accessory muscle use, rales, rhonchi, wheezes - Cardiovascular Cardiovascular exam: Present: RRR, +S1, +S2. Absent: diastolic murmur, gallop, rubs, systolic murmur - GI/Abdominal GI/Abdominal exam: Present: normal bowel sounds, soft, no peritoneal signs. Absent: distended, tenderness - Extremities Exam Extremities exam: Present: warm, radial pulses palpable and symetrical. Absent : calf tenderness, cyanotic, pedal edema - Neurological Exam Neurological exam: Present: alert, oriented X3 - Psychiatric Psychiatric exam: Present: normal affect, normal mood
--- NOTE | 2017-02-01 10:31 | Infectious Disease Progress No ---
Date of Encounter: 02/01/17 Time of Encounter: 10:28 - Assessment and Plan (1) Aortic valve vegetation Current Visit: Yes Status: Acute Patient has been afebrile with a normal WBC count since admission. Antibiotics were discontinued and patient has remained afebrile overnight. Patient has not met SIRS criteria since admission. Blood cultures from previous admission 01/03/17 and 01/05/17 show no growth to date. blood cultures form 01/28/17 and 01/29/17 show no Growth to date. CHANTE from 01/05/17 revealed 6mm pedunculated and mobile intracardiac vegetation on the right coronary cusp TTE from 01/31/17 shows no valvular abnormalities. Patient only meets one major [place] criteria of abnormal Echo findings. Very unlikely to be endocarditis given clinical picture. Patient asymptomatic after antibiotics were discontinued. Recommendation: Patient will need repeat CHANTE as outpatient and follow up with ID after procedure is complete. (2) Polysubstance abuse Current Visit: Yes Status: Acute patient has history of snorting percocet but repeatedly denies any IV drugs. UDS positive for amphetamines as well. management per primary team. - Subjective Interval history: No major events. PAtient denies any pain or discmfort this morning. He denies any dyspnea, cough, wheeze, abdominal pain, or diarrhea. HE has no complaints or concerns this am. Infect Dis PN-Objective Data - Labs CBC & Chem 7: 02/01/17 06:02 02/01/17 06:02 Labs: Laboratory Results - last 24 hr 02/01/17 02/01/17 06:02 06:02 WBC 7.6 RBC 4.89 Hgb 14.9 Hct 44.6 MCV 91.2 MCH 30.5 MCHC 33.4 RDW 11.8 Plt Count 258 MPV 11.2 Immature Gran % 0.8 Seg Neutrophils % 53.5 Lymphocytes % 31.4 Monocytes % 9.1 Eosinophils % 4.3 Basophils % 0.9 Neutrophils # 4.1 Lymphocytes # 2.4 Monocytes # 0.7 Eosinophils # 0.3 Basophils # 0.1 Sodium 138 Potassium 4.2 Chloride 103 Carbon Dioxide 29 BUN 16 Creatinine 1.23 Est GFR ( Amer) > 60 Est GFR (Non-Af Amer) > 60 BUN/Creatinine Ratio 13 Glucose 82 Calculated Osmolality 286 Calcium 9.1 Phosphorus 3.1 Magnesium 2.3 Cultures: Cultures 01/29/17 04:13 Blood Culture - Preliminary Peripheral Venipuncture 01/29/17 04:18 Blood Culture - Preliminary Peripheral Venipuncture 01/29/17 04:18 Blood Culture - Preliminary Peripheral Venipuncture Serology 01/28/17 Range/Units 22:19 Urine Color Yellow (Yellow) Urine Clarity Cloudy A (Clear) Urine pH 6.0 (5.0-8.0) pH Units Ur Specific [place] 1.020 (1.010-1.025) Urine Protein Negative (Neg-Trace) mg/dL Urine Glucose (UA) Normal (Normal) mg/dL Urine Ketones Negative (Negative) mg/dL Urine Blood Negative (Negative) Urine Nitrite Negative (Negative) Urine Bilirubin Negative (Negative) Urine Urobilinogen Normal (Normal) mg/dL Ur Leukocyte Esterase Negative (Negative) Urine Microscopic RBC 0-3 (0-3) per hpf Urine Microscopic WBC 0-3 (0-3) per hpf Ur Squamous Epith Cells None Seen (None-Few) per lpf Urine Bacteria None Seen (None-Few) per hpf Hyaline Casts None Seen (None-Few) per lpf Exam - Constitutional Vitals: Temp Pulse Resp BP Pulse Ox 97.8 F 90 18 104/72 97 02/01/17 06:53 02/01/17 06:53 02/01/17 06:53 02/01/17 06:53 02/01/17 06:53 General appearance: average body habitus, no acute distress - Head Head exam: Present: atraumatic, normal inspection, normocephalic - Eye Eye exam: Present: normal appearance, PERRL. Absent: scleral icterus - ENT ENT exam: Present: mucous membranes moist - Neck Neck exam: Present: normal inspection. Absent: lymphadenopathy, thyromegaly - Respiratory Respiratory exam: Present: CTAB - Cardiovascular Cardiovascular exam: Present: RRR, +S1, +S2. Absent: diastolic murmur, systolic murmur - GI/Abdominal GI/Abdominal exam: Present: normal bowel sounds, soft. Absent: mass, organomegaly, tenderness - Extremities Exam Extremities exam: Present: normal capillary refill, normal inspection. Absent: joint swelling, pedal edema, tenderness - Skin Skin exam: Absent: erythema, rash Consult Discharge Plan - Plan Additional Instructions: Please follow up with your primary care physician within five days after your discharge from the hospital. Please obtain CHANTE (transesophageal echocardiogram) in three months and follow up with Infectious disease (Dr. Saleh) ten days later. Substance abuse abstinence is highly advised Referrals: Hernan Mccord DO [Primary Care Provider] -
== END 2017-02-01 13:13 | disposition home or self-care (01) | DRG 193 ==
LOC: EMEROO 15:32 → 2NENU 15:32
PROVIDERS: ADMIT Nurse Practitioner Family; ATTEND Internal Medicine

== ENCOUNTER 2017-02-21 05:54 | Observation (INO) ==
[2017-02-21] MEDS ORDERED: Aspirin 81 MG TAB.CHEW PO ONE (06:16)
[2017-02-21 06:30] LABS: Basophils # 0.1 K/mcL (0.0-0.2); Basophils % 0.5 %; Eosinophils # 0.2 K/mcL (0.0-0.6); Eosinophils % 1.8 %; Hematocrit 43.8 % (37.5-50.1); Hemoglobin 14.4 g/dL (12.9-16.9); Immature Granulocytes % 0.4 % (0-4); Lymphocytes # 2.7 K/mcL (0.6-4.6); Mean Corpuscular HGB Conc 32.9 g/dL (31.6-35.5); Mean Corpuscular Hemoglobin 29.9 pg (28.0-33.3); Mean Corpuscular Volume 90.9 fL (83.0-100.0); Mean Platelet Volume 10.4 fL (9.4-12.4); Monocytes # 0.7 K/mcL (0.0-1.3); Monocytes % 7.4 %; Neutrophils # 5.6 K/mcL (1.6-8.9); Platelet Count 280 K/mcL (140-400); Prothrombin Time 10.4 Seconds (9.4-12.1); Red Blood Count 4.82 M/mcL (4.19-5.50); Segmented Neutrophils % 60.9 %
[2017-02-21 06:33] LABS: Activated Partial Thrombo Time 33.1 Seconds (26.0-36.0)
[2017-02-21 06:39] LABS: Alanine Aminotransferase 23 Units/L (0-55); Albumin 3.7 g/dL (3.5-5.0); Albumin/Globulin Ratio 1.2 (1.1-2.2); Alkaline Phosphatase 111 Units/L (38-126); Aspartate Amino Transferase 16 Units/L (5-34); BUN/Creatinine Ratio 12 (6-26); Bilirubin,Direct 0.1 mg/dL (0.0-0.5); Bilirubin,Indirect 0.2 mg/dL (0.0-1.2); Bilirubin,Total 0.3 mg/dL (0.2-1.2); Blood Urea Nitrogen 14 mg/dL (8-26); Calcium 9.8 mg/dL (8.6-10.8); Carbon Dioxide 31 mEq/L (19-29); Chloride 103 mEq/L (98-109); Globulin 3.2 g/dL (2.4-3.5); Glucose 78 mg/dL (70-99); Osmolality,Calculated 291 (280-300); Potassium 3.6 mEq/L (3.5-4.5); Sodium 141 mEq/L (136-145); Total Protein 6.9 g/dL (6.0-8.3); eGFR For African Americans > 60 (> 60); eGFR For Non-African Americans > 60 (> 60)
--- NOTE | 2017-02-21 06:57 | Emergency Department Note ---
Disposition Clinical Impression: Elevated troponin I level Chest pain Qualifiers: Chest pain type: unspecified Qualified Code(s): R07.9 - Chest pain, unspecified Disposition: Admitted As Inpatient Condition: Fair Referrals: Hernan Mccord DO [Primary Care Provider] - Forms: ED Satisfaction Letter Time of Disposition: 07:10 General Adult HPI - General Chief complaint: ED Shortness of Breath/Dyspnea Stated complaint: NADINE Time Seen by Provider: 02/21/17 05:58 Source: patient Limitations: no limitations Nursing Notes Reviewed: Yes Vital Signs Reviewed: Yes - History of Present Illness HPI Narrative: Patient is a 41-year-old male who presents to [facility] ED with a chief complaint of chest pain. Patient states the symptoms started approximately one hour ago. States the pain is in the center of his chest and sharp and stabbing in nature. States it is radiating to his right upper extremity as well as his left upper extremity. Denies any nausea, vomiting, fever or chills. States he did feel a little short of breath with this. Still having a little bit of pain at the time. Past medical history significant for recent admission for possible endocarditis. He states he was cleared from this and did not need to be on antibiotics anymore. Patient adamantly denies any IV drug use. Onset (ago): hour(s) Location: chest Pain Severity: moderate Pain Scale: 0 Quality: stabbing Consistency: Improving Improves with: nothing Worsens with: nothing Associated symptoms: Reports: chest pain. Denies: fever/chills, nausea/vomiting , shortness of breath, weakness Treatments Prior to Arrival: none - Related Data Home Medications Medication Instructions Recorded Confirmed HydrOXYzine Pamoate [Vistaril] 50 mg PO TID PRN 02/21/17 02/21/17 Sertraline [Zoloft] 100 mg PO DAILY 02/21/17 02/21/17 Allergies Allergy/AdvReac Type Severity Reaction Status Date / Time Penicillins Allergy Hives Verified 02/21/17 07:16 All systems ED: reviewed and negative except as stated. Past Medical History - Past Medical History Attestation: Yes The following information was validated with the patient. Source: patient Medical history: Reports: valvular heart disease Surgical history: Reports: appendectomy, orthopedic, other (right shoulder), sinus surgery Psychiatric history: Reports: anxiety, depression - Social History Smoking Status: Never smoker Smokeless Tobacco Status: No Alcohol use: Reports: occasionally Drug use: Reports: opiates, methamphetamine, prescription drug abuse Physical Exam - General Limitations: no limitations General appearance: alert, in no apparent distress - Head Head exam: atraumatic, normocephalic, normal inspection - Eye Eye exam: Present: normal appearance, EOMI - ENT ENT exam: normal exam, normal oropharynx, mucous membranes moist - Neck Neck exam: Present: normal inspection, full ROM, trachea midline - Chest Chest inspection: Present: normal inspection, symmetric chest wall rise - Respiratory Respiratory exam: Present: normal lung sounds bilaterally - Cardiovascular Cardiovascular exam: Present: normal rhythm, tachycardia - Abdominal Exam Abdominal exam: Present: soft, Non-Tender. Absent: tenderness, distention, guarding, rebound, rigidity - Extremities Exam Extremities exam: Present: normal inspection, full ROM. Absent: tenderness, pedal edema - Back Exam Back exam: Present: normal inspection, full ROM. Absent: tenderness - Neurological Exam Neurological exam: Present: alert, oriented X3 - Psychiatric Psychiatric exam: Present: normal affect, normal mood - Skin Skin exam: Present: warm, dry, intact, normal color Course Course Narrative: Patient seen and examined. Chest pain without prior cardiac workup. Cardiopulmonary workup ordered. Vital signs stable. - Reevaluation(s) Reevaluation #1: Troponin elevated at 0.04. Most recently was within the normal range. Patient has not had any stress testing or any prior cardiac workup. We will admit for chest pain, rule out ACS. Spoke with Dr. Rome who has accepted patient for admission. Time: 07:09 Vital Signs Temperature 98.0 F 02/21/17 05:54 Pulse Rate 105 02/21/17 05:54 Respiratory Rate 18 02/21/17 05:54 Blood Pressure 149/92 02/21/17 05:54 O2 Sat by Pulse Oximetry 99 02/21/17 05:54 Temperature 98.0 F 02/21/17 05:54 Pulse Rate 100 02/21/17 06:51 Respiratory Rate 20 02/21/17 06:51 Blood Pressure 137/93 02/21/17 06:51 O2 Sat by Pulse Oximetry 99 02/21/17 06:51 Oxygen Delivery Oxygen Delivery Room Air Medical Decision Making - Medical Records Medical records reviewed: Yes I reviewed the patient's medical records. - Lab Data Lab results reviewed: Yes I reviewed the patient's lab results. Result diagrams: 02/21/17 06:05 02/21/17 06:05 Lab Results 02/21/17 02/21/17 02/21/17 Range/Units 06:05 06:05 06:05 WBC 9.2 (4.3-11.1) K/mcL RBC 4.82 (4.19-5.50) M/mcL Hgb 14.4 (12.9-16.9) g/dL Hct 43.8 (37.5-50.1) % MCV 90.9 (83.0-100.0) fL MCH 29.9 (28.0-33.3) pg MCHC 32.9 (31.6-35.5) g/dL RDW 12.0 (11.5-14.5) % Plt Count 280 (140-400) K/mcL MPV 10.4 (9.4-12.4) fL Immature Gran % 0.4 (0-4) % Seg Neutrophils % 60.9 % Lymphocytes % 29.0 % Monocytes % 7.4 % Eosinophils % 1.8 % Basophils % 0.5 % Neutrophils # 5.6 (1.6-8.9) K/mcL Lymphocytes # 2.7 (0.6-4.6) K/mcL Monocytes # 0.7 (0.0-1.3) K/mcL Eosinophils # 0.2 (0.0-0.6) K/mcL Basophils # 0.1 (0.0-0.2) K/mcL PT 10.4 (9.4-12.1) Seconds INR 1.0 APTT 33.1 (26.0-36.0) Seconds Sodium 141 (136-145) mEq/L Potassium 3.6 (3.5-4.5) mEq/L Chloride 103 (98-109) mEq/L Carbon Dioxide 31 H (19-29) mEq/L BUN 14 (8-26) mg/dL Creatinine 1.14 (0.72-1.25) mg/dL Est GFR ( Amer) > 60 (> 60) Est GFR (Non-Af Amer) > 60 (> 60) BUN/Creatinine Ratio 12 (6-26) Glucose 78 (70-99) mg/dL Calculated Osmolality 291 (280-300) Calcium 9.8 (8.6-10.8) mg/dL Total Bilirubin 0.3 (0.2-1.2) mg/dL Direct Bilirubin 0.1 (0.0-0.5) mg/dL Indirect Bilirubin 0.2 (0.0-1.2) mg/dL AST 16 (5-34) Units/L ALT 23 (0-55) Units/L Alkaline Phosphatase 111 (38-126) Units/L Troponin I (0-0.03) ng/mL Serum Total Protein 6.9 (6.0-8.3) g/dL Albumin 3.7 (3.5-5.0) g/dL Globulin 3.2 (2.4-3.5) g/dL Albumin/Globulin Ratio 1.2 (1.1-2.2) / Range/Units 06:05 WBC (4.3-11.1) K/mcL RBC (4.19-5.50) M/mcL Hgb (12.9-16.9) g/dL Hct (37.5-50.1) % MCV (83.0-100.0) fL MCH (28.0-33.3) pg MCHC (31.6-35.5) g/dL RDW (11.5-14.5) % Plt Count (140-400) K/mcL MPV (9.4-12.4) fL Immature Gran % (0-4) % Seg Neutrophils % % Lymphocytes % % Monocytes % % Eosinophils % % Basophils % % Neutrophils # (1.6-8.9) K/mcL Lymphocytes # (0.6-4.6) K/mcL Monocytes # (0.0-1.3) K/mcL Eosinophils # (0.0-0.6) K/mcL Basophils # (0.0-0.2) K/mcL PT (9.4-12.1) Seconds INR APTT (26.0-36.0) Seconds Sodium (136-145) mEq/L Potassium (3.5-4.5) mEq/L Chloride (98-109) mEq/L Carbon Dioxide (19-29) mEq/L BUN (8-26) mg/dL Creatinine (0.72-1.25) mg/dL Est GFR ( Amer) (> 60) Est GFR (Non-Af Amer) (> 60) BUN/Creatinine Ratio (6-26) Glucose (70-99) mg/dL Calculated Osmolality (280-300) Calcium (8.6-10.8) mg/dL Total Bilirubin (0.2-1.2) mg/dL Direct Bilirubin (0.0-0.5) mg/dL Indirect Bilirubin (0.0-1.2) mg/dL AST (5-34) Units/L ALT (0-55) Units/L Alkaline Phosphatase (38-126) Units/L Troponin I 0.04 H* (0-0.03) ng/mL Serum Total Protein (6.0-8.3) g/dL Albumin (3.5-5.0) g/dL Globulin (2.4-3.5) g/dL Albumin/Globulin Ratio (1.1-2.2) - Radiology Data Radiology results reviewed: Yes I reviewed the patient's radiology results. Chest X-Ray 02/21/17 06:16 IMPRESSION: No acute abnormality. D/ / Marcos Taylor MD / Marcos Taylor MD Interpreting Provider: Marcos Taylor MD - EKG Data EKG #1 EKG attestation: Yes I reviewed and interpreted this EKG. EKG results narrative: EKG done at 559 shows sinus tachycardia with a rate of 107 beats per minute. No acute ST elevation or depression. Normal axis. Attestation Statement - Attestation Attestation: I, Bernard Avila, examined this patient and my medical decision-making was reviewed with the MAINTENANCE MILLWRIGHT/PA/Advanced Practice Nurse/Resident Physician. I agree with the documented findings, disposition and treatment plan as described except to the extent set forth below. 41-year-old male presents with concerns of chest pain. Patient states the pain is in the epigastrium and radiates to his substernal area. Pain started while he was getting ready for work today. Patient reports palpitations and diaphoresis with this pain however he does not have shortness of breath or other near syncopal symptoms. Patient recently admitted for concerns of possible endocarditis however this was ruled out while admitted to the hospital. EKG does not show signs of acute STEMI or ischemia. Troponin returned elevated at 0.04. Patient will be admitted to the hospital for further care and evaluation of his chest pain to rule out ACS.
[2017-02-21] MEDS ORDERED: Nitroglycerin 0.4 MG TAB.SUBL SL PRN (07:00)
[2017-02-21] MEDS ORDERED: *HR* HYDROcodone/Acet 5/325 mg TABLET PO PRN (08:59)
[2017-02-21 09:15] LABS: Amphetamine Screen,Urine Positive ng/mL (Cutoff=1000); Barbiturate Screen,Urine Negative ng/mL (Cutoff=200); Benzodiazepines Screen,Urine Negative ng/mL (Cutoff=200); Cannabinoid Screen,Urine Negative ng/mL (Cutoff = 50); Cocaine Screen,Urine Negative ng/mL (Cutoff= 300); Opiate Screen,Urine Negative ng/mL (Cutoff=300); Phencyclidine Screen,Urine Negative ng/mL (Cutoff=25)
[2017-02-21] MEDS ORDERED: Naloxone 0.4 MG/ML INJ IVP PRN (09:32)
[2017-02-21] MEDS ORDERED: Pantoprazole 40 MG VIAL IVP SCH (09:45)
--- NOTE | 2017-02-21 09:45 | Internal Med History&Physical ---
Date of Encounter: 02/21/17 Time of Encounter: 09:39 Assessment and Plan (1) Gastritis and duodenitis Current visit: Yes Status: Acute presents with chronic epigastric /abdomial pain unclear cause, may be 2/2 gastritis/duodenitis/r/o ulcers, erosions. states that the food intake makes it worse. will get a GB ultrasound consult GI for possible EGD> denies chest pain or sob, mild elevation of trop at 0.04, no EKG changes, less likely cardiac, will trend trop. (2) Polysubstance abuse Current visit: No Status: Acute h/o drug seeking behavior from previous notes. has been positive for cocaine,amphet, benzos in the past. states that he used to drink heavily in the past which he has quit now. (3) Infective endocarditis of aortic valve Current visit: No Status: Resolved recent h/o, evaluated by ID> completed IV antibiotics Internal Medicine - H&P: HPI Chief complaint: epigastric pain Admitted From: Home Plans for Post Hospital Care: Home History of present illness: Mr. Mehta is a 41 year old male with PMH of infectuve endocarditis , ?IVDA( he was positive for cocaine, amphetamines and benzos in the past) presented to ED wth c/o epigastric pain that has been going on for the last 5-6 months Admitted from ED for chest pain to r/o ACS however he says he has more of epigastric/abdominal pain that was worse last night. he denies n/v/d , hematochezia or marlena, no fever, cough, sob. he denies of any past h/o GI ulcers of GIB. he denies having any EGD doen in the past. he says that he has been seen by DR> Dodie for the abdominal pain, was told that all they saw was GB sludge but no other definitive cause for the pain he says he has not seen a GI ever. at the time of my assesment, he is lying comfortably in bed in no acute distress Past Med Surg Social Fam HX - Past Medical History Medical history: valvular heart disease Psychiatric history: anxiety, depression - Past Surgical History Surgical History: appendectomy, orthopedic, other, sinus surgery - Social History Smoking Status: Never smoker Smokeless Tobacco Status: No Alcohol use: occasionally Drug use: opiates, methamphetamine, prescription drug abuse - Family History Father Hx Family Cardiac Disorders: Yes (bypass x3) Hx Family Respiratory Disorders: Yes (COPD) Mother Hx Family Cardiac Disorders: Yes (bypass x4 at approximately 61 years of age. ) Hx Family Endocrine Disorder: Yes (DM) Internal Medicine - H&P: Meds HydrOXYzine Pamoate [Vistaril] 50 mg PO TID PRN 02/21/17 [History] Sertraline [Zoloft] 100 mg PO DAILY 02/21/17 [History] Allergies Penicillins Allergy (Verified 02/21/17 07:16) Hives REPORTS HIVES WHILE BEING TREATED FOR POISON SUMAC, CANNOT REMEMBER MEDICATION , REPORTS NO SWELLING OF LIPS/TONGUE/THROAT All Systems PM: A 10-system review of systems was performed and is negative for pertinent findings except as documented above in the HPI. - Constitutional Constitutional: as per HPI - EENT Eyes: as per HPI Ears: as per HPI Nose, mouth and throat: as per HPI - Breasts Breasts: as per HPI - Cardiovascular Cardiovascular ROS IM: as per HPI - Respiratory Respiratory: as per HPI - Gastrointestinal Gastrointestinal: as per HPI - Genitourinary Genitourinary ROS male: as per HPI - Musculoskeletal Musculoskeletal ROS IM: as per HPI - Integumentary Integumentary IM: as per HPI - Neurological Neurological ROS: as per HPI - Constitutional Vitals: Temp Pulse Resp BP Pulse Ox 97.5 F L 91 18 147/82 99 02/21/17 08:29 02/21/17 08:29 02/21/17 08:29 02/21/17 08:29 02/21/17 08:29 General appearance: Present: A&O X 3, no acute distress Exam: neck- supple chest- b/l clear, no added sounds CVS- s1 and s2, no m/r/g abd-soft, non tender, bs are present ext- no edema neuro- no focal defecits, alert and awake. Internal Med - H&P Results - Labs CBC & Chem 7: 02/21/17 06:05 02/21/17 06:05
[2017-02-21] MEDS ORDERED: hydrOXYzine pamoate 25 MG CAPSULE PO PRN (09:51)
[2017-02-21 12:13] VITALS: BP 102/67
[2017-02-21] MEDS ORDERED: traMADol 50 MG TABLET PO PRN ×2 (13:50→14:02)
--- NOTE | 2017-02-21 14:44 | Electrocardiograph Report ---
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
== END 2017-02-21 15:14 | disposition left against medical advice (07) ==
LOC: 2ANU 05:54 → EMEROO 05:54 → 2ANU 08:14
PROVIDERS: ADMIT Internal Medicine; ATTEND Internal Medicine

== ENCOUNTER 2017-03-07 21:09 | Observation (INO) ==
[2017-03-07 22:08] LABS: Basophils # 0.1 K/mcL (0.0-0.2); Basophils % 0.6 %; Eosinophils # 0.1 K/mcL (0.0-0.6); Hematocrit 46.8 % (37.5-50.1); Hemoglobin 15.5 g/dL (12.9-16.9); Immature Granulocytes % 0.6 % (0-4); Immature Platelets 4.7 % (1.1-6.1); Lymphocytes # 2.4 K/mcL (0.6-4.6); Lymphocytes % 23.5 %; Mean Corpuscular HGB Conc 33.1 g/dL (31.6-35.5); Mean Corpuscular Hemoglobin 29.6 pg (28.0-33.3); Mean Corpuscular Volume 89.3 fL (83.0-100.0); Monocytes # 0.7 K/mcL (0.0-1.3); Monocytes % 6.8 %; Neutrophils # 6.8 K/mcL (1.6-8.9); Platelet Count 326 K/mcL (140-400); Red Blood Count 5.24 M/mcL (4.19-5.50); Red Cell Distribution Width 11.9 % (11.5-14.5); Segmented Neutrophils % 67.5 %
[2017-03-07 22:18] LABS: BUN/Creatinine Ratio 8 (6-26); Blood Urea Nitrogen 9 mg/dL (8-26); Calcium 9.6 mg/dL (8.6-10.8); Carbon Dioxide 27 mEq/L (19-29); Chloride 104 mEq/L (98-109); Glucose 94 mg/dL (70-99); Osmolality,Calculated 286 (280-300); Potassium 4.4 mEq/L (3.5-4.5); Sodium 139 mEq/L (136-145); eGFR For African Americans > 60 (> 60); eGFR For Non-African Americans > 60 (> 60)
[2017-03-07] MEDS ORDERED: Aspirin 81 MG TAB.CHEW PO ONE (22:34)
[2017-03-07] MEDS ORDERED: Nitroglycerin 0.4 MG TAB.SUBL SL PRN (22:59)
--- NOTE | 2017-03-07 23:01 | Emergency Department Note ---
Disposition Clinical Impression: NSTEMI (non-ST elevated myocardial infarction) Disposition: Admitted As Inpatient Condition: Good Reasons to Return/Additional Instructions: Referrals: NONE,PCP [Primary Care Provider] - Forms: ED Satisfaction Letter Time of Disposition: 23:34 Chest Pain HPI - General Chief Complaint: ED Chest Pain Stated Complaint: cp Time Seen by Provider: 03/07/17 22:33 Source: patient Limitations: no limitations Vital Signs Reviewed: Yes Nursing Notes Reviewed: Yes - History of Present Illness HPI Narrative: 41 year old male with HX of galbladder stones and sludge presents to the ED with increasd midsternal chest pain that radiates from the left and right with exertional dyspnes and diaphoresis that started about 1.5 hours. Buster states that he most recently was evaluated for an elevatre troponin in the past and found to have a vegetation on the heart although did not have a stress test or a cardiac catherization and now the pain is worse. He also most recently had a galbladder ultrasound last week and was told that it was not acute cholecystitis but rather gallstones/sludge. Buster denies all risk factor for aCS other than early family history. Associated with nausea. Severity scale (1-10): 9 - Related Data Home Medications Medication Instructions Recorded Confirmed HydrOXYzine Pamoate [Vistaril] 50 mg PO TID PRN 02/21/17 02/21/17 Sertraline [Zoloft] 100 mg PO DAILY 02/21/17 02/21/17 Allergies Allergy/AdvReac Type Severity Reaction Status Date / Time Penicillins Allergy Hives Verified 02/21/17 07:16 Constitutional: Denies: fever, chills, weakness, weight change Eyes: Denies: eye pain, eye discharge, vision change ENT ED: Denies: ear pain, throat pain, dental pain, hearing loss, epistaxis, congestion, dysphagia Cardiovascular: Reports: chest pain, dyspnea on exertion. Denies: palpitations , edema, syncope Respiratory: Denies: cough, dyspnea, wheezes, hemoptysis, stridor Gastrointestinal: Reports: abdominal pain, nausea. Denies: vomiting, diarrhea, constipation, hematemesis, melena, hematochezia Genitourinary: Denies: urgency, dysuria, frequency, hematuria Musculoskeletal: Denies: back pain, neck pain, arthralgia, myalgia Integumentary: Denies: rash, abrasion, lesions Neurological: Denies: headache, weakness, numbness, paresthesias, confusion, abnormal gait, vertigo Psychiatric: Denies: anxiety, depression, suicidal thoughts, homicidal thoughts , auditory hallucinations, visual hallucinations Endocrine: Denies: fatigue Hematological/Lymphatic: Denies: easy bleeding, easy bruising Allergic/Immunologic: Denies: facial swelling, urticaria Chest Pain PMH - Past Medical History Medical history: Reports: valvular heart disease Surgical history: Reports: appendectomy, orthopedic, other, sinus surgery Psychiatric history: Reports: anxiety, depression - Social History Smoking Status: Never smoker Alcohol use: Reports: occasionally Drug use: Reports: opiates, methamphetamine, prescription drug abuse Physical Exam - General Limitations: no limitations General appearance: alert, in no apparent distress - Head Head exam: atraumatic, normocephalic, normal inspection - Eye Eye exam: Present: normal appearance, PERRL, EOMI - Expanded Eye Exam Pupils: Left: reactive - ENT ENT exam: normal exam, normal oropharynx, mucous membranes moist - Expanded ENT Exam External ear exam: Present: normal external inspection Mouth exam: Present: normal external inspection Teeth exam: Present: normal inspection Throat exam: Present: normal inspection - Neck Neck exam: Present: normal inspection, full ROM, trachea midline - Chest Chest inspection: Present: normal inspection, symmetric chest wall rise - Respiratory Respiratory exam: Present: normal lung sounds bilaterally - Cardiovascular Cardiovascular exam: Present: normal rhythm, tachycardia, normal heart sounds - Abdominal Exam Abdominal exam: Present: soft, Non-Tender. Absent: tenderness, distention, guarding, rebound, rigidity - Extremities Exam Extremities exam: Present: normal inspection, full ROM. Absent: tenderness, pedal edema - Expanded Upper Extremity Exam Shoulder exam: Present: normal inspection, full ROM Arm exam: Present: normal inspection, full ROM Elbow exam: Present: normal inspection, full ROM Forearm/Wrist exam: Present: normal inspection, full ROM Hand exam: Present: normal inspection, full ROM Vascular exam: Normal: capillary refill, radial pulse - Expanded Lower Extremity Exam Hip/Pelvis exam: Present: normal inspection, full ROM Upper leg exam: Present: normal inspection, full ROM Knee exam: Present: normal inspection, full ROM Lower leg exam: Present: normal inspection, full ROM Ankle exam: Present: normal inspection, full ROM Foot/toe exam: Present: normal inspection, full ROM Neurovascular/Tendon exam: Absent: motor deficit, sensory deficit, tendon deficit - Back Exam Back exam: Present: normal inspection, full ROM. Absent: tenderness - Neurological Exam Neurological exam: Present: alert, oriented X3 - Expanded Neurological Exam Patient oriented to: Present: person, place, time Coma Scale Eye Opening: Spontaneous Coma Scale Motor Response: Obeys Commands Coma Scale Verbal Response: Oriented Coma Scale Total: 15 - Psychiatric Psychiatric exam: Present: normal affect, normal mood - Skin Skin exam: Present: warm, dry, intact, normal color Course Course Narrative: we will treat patinet with asa for his elevated troponin and obtain lipase with hepatic panel to rule out galbladder pathology. will admit to medicine. nitro for pain relief - Reevaluation(s) Reevaluation #1: patient is agrreable to admission. heparin drip started Time: 23:14 - Consultations Consultation #1: discussed case wtih dr. Mayorga and he accepts patiwilbert for admission Time: 23:33 Vital Signs Temperature 97.5 F L 03/07/17 21:11 Pulse Rate 102 03/07/17 21:11 Respiratory Rate 18 03/07/17 21:11 Blood Pressure 126/88 03/07/17 21:11 O2 Sat by Pulse Oximetry 100 03/07/17 21:11 Temperature 97.5 F L 03/07/17 21:11 Pulse Rate 102 03/07/17 23:04 Respiratory Rate 18 03/07/17 23:04 Blood Pressure 121/94 03/07/17 23:04 O2 Sat by Pulse Oximetry 98 03/07/17 23:04 Oxygen Delivery Oxygen Delivery Room Air Chest Pain - Lab Data Result diagrams: 03/07/17 21:56 03/07/17 21:56 Lab Results 03/07/17 03/07/17 03/07/17 Range/Units 21:56 21:56 21:56 WBC 10.1 (4.3-11.1) K/mcL RBC 5.24 (4.19-5.50) M/mcL Hgb 15.5 (12.9-16.9) g/dL Hct 46.8 (37.5-50.1) % MCV 89.3 (83.0-100.0) fL MCH 29.6 (28.0-33.3) pg MCHC 33.1 (31.6-35.5) g/dL RDW 11.9 (11.5-14.5) % Plt Count 326 (140-400) K/mcL MPV 10.0 (9.4-12.4) fL Immature Gran % 0.6 (0-4) % Seg Neutrophils % 67.5 % Lymphocytes % 23.5 % Monocytes % 6.8 % Eosinophils % 1.0 % Basophils % 0.6 % Neutrophils # 6.8 (1.6-8.9) K/mcL Lymphocytes # 2.4 (0.6-4.6) K/mcL Monocytes # 0.7 (0.0-1.3) K/mcL Eosinophils # 0.1 (0.0-0.6) K/mcL Basophils # 0.1 (0.0-0.2) K/mcL Immature Plt Fraction 4.7 (1.1-6.1) % Sodium 139 (136-145) mEq/L Potassium 4.4 (3.5-4.5) mEq/L Chloride 104 (98-109) mEq/L Carbon Dioxide 27 (19-29) mEq/L BUN 9 (8-26) mg/dL Creatinine 1.19 (0.72-1.25) mg/dL Est GFR ( Amer) > 60 (> 60) Est GFR (Non-Af Amer) > 60 (> 60) BUN/Creatinine Ratio 8 (6-26) Glucose 94 (70-99) mg/dL Calculated Osmolality 286 (280-300) Lactic Acid (0.5-2.2) mmol/L Calcium 9.6 (8.6-10.8) mg/dL Total Bilirubin 1.2 (0.2-1.2) mg/dL Direct Bilirubin 0.3 (0.0-0.5) mg/dL Indirect Bilirubin 0.9 (0.0-1.2) mg/dL AST 17 (5-34) Units/L ALT 21 (0-55) Units/L Alkaline Phosphatase 106 (38-126) Units/L Troponin I 0.06 H* (0-0.03) ng/mL Serum Total Protein 7.4 (6.0-8.3) g/dL Albumin 3.9 (3.5-5.0) g/dL Globulin 3.5 (2.4-3.5) g/dL Albumin/Globulin Ratio 1.1 (1.1-2.2) Lipase < 10 (8-78) Units/L // Range/Units 23:05 WBC (4.3-11.1) K/mcL RBC (4.19-5.50) M/mcL Hgb (12.9-16.9) g/dL Hct (37.5-50.1) % MCV (83.0-100.0) fL MCH (28.0-33.3) pg MCHC (31.6-35.5) g/dL RDW (11.5-14.5) % Plt Count (140-400) K/mcL MPV (9.4-12.4) fL Immature Gran % (0-4) % Seg Neutrophils % % Lymphocytes % % Monocytes % % Eosinophils % % Basophils % % Neutrophils # (1.6-8.9) K/mcL Lymphocytes # (0.6-4.6) K/mcL Monocytes # (0.0-1.3) K/mcL Eosinophils # (0.0-0.6) K/mcL Basophils # (0.0-0.2) K/mcL Immature Plt Fraction (1.1-6.1) % Sodium (136-145) mEq/L Potassium (3.5-4.5) mEq/L Chloride (98-109) mEq/L Carbon Dioxide (19-29) mEq/L BUN (8-26) mg/dL Creatinine (0.72-1.25) mg/dL Est GFR ( Amer) (> 60) Est GFR (Non-Af Amer) (> 60) BUN/Creatinine Ratio (6-26) Glucose (70-99) mg/dL Calculated Osmolality (280-300) Lactic Acid 0.8 (0.5-2.2) mmol/L Calcium (8.6-10.8) mg/dL Total Bilirubin (0.2-1.2) mg/dL Direct Bilirubin (0.0-0.5) mg/dL Indirect Bilirubin (0.0-1.2) mg/dL AST (5-34) Units/L ALT (0-55) Units/L Alkaline Phosphatase (38-126) Units/L Troponin I (0-0.03) ng/mL Serum Total Protein (6.0-8.3) g/dL Albumin (3.5-5.0) g/dL Globulin (2.4-3.5) g/dL Albumin/Globulin Ratio (1.1-2.2) Lipase (8-78) Units/L
[2017-03-07 23:14] LABS: Alanine Aminotransferase 21 Units/L (0-55); Albumin 3.9 g/dL (3.5-5.0); Albumin/Globulin Ratio 1.1 (1.1-2.2); Alkaline Phosphatase 106 Units/L (38-126); Aspartate Amino Transferase 17 Units/L (5-34); Bilirubin,Direct 0.3 mg/dL (0.0-0.5); Bilirubin,Indirect 0.9 mg/dL (0.0-1.2); Bilirubin,Total 1.2 mg/dL (0.2-1.2); Globulin 3.5 g/dL (2.4-3.5); Lipase < 10 Units/L (8-78); Total Protein 7.4 g/dL (6.0-8.3)
[2017-03-07] MEDS ORDERED: *HR* Heparin 5,000 UNIT/ML VIAL IVP PRN ×2 (23:22)
[2017-03-07] MEDS ORDERED: *HR* Heparin 5,000 UNIT/ML VIAL IVP ONE (23:22)
[2017-03-07] MEDS ORDERED: Heparin 25,000 UNIT/500 ML D5W 25,000 UNIT/500 ML MLS IVC SCH (23:30)
[2017-03-08] LABS: Hematocrit 44.4 % (37.5-50.1); Hemoglobin 14.6 g/dL (12.9-16.9); Immature Platelets 4.9 % (1.1-6.1); Mean Corpuscular HGB Conc 32.9 g/dL (31.6-35.5); Mean Corpuscular Hemoglobin 29.6 pg (28.0-33.3); Mean Corpuscular Volume 89.9 fL (83.0-100.0); Mean Platelet Volume 10.2 fL (9.4-12.4); Red Blood Count 4.94 M/mcL (4.19-5.50); Red Cell Distribution Width 11.9 % (11.5-14.5)
--- NOTE | 2017-03-08 01:28 | Internal Med History&Physical ---
Date of Encounter: 03/08/17 Time of Encounter: 01:28 Assessment and Plan (1) Chest pain Current visit: Yes Status: Acute No risk factors except family history. He has propensity for minimal troponin elevation in the past (0.11 in December 2016). Chest pain is atypical in nature. - Serial troponin, r/o ACS - heparin gtt for now - Cont ASA - Give statin - Hold beta beata (patient denies drug use but positive for amphetamine use on 02/21/17) - Check urine drug screen - If ACS ruled out, check exercise stress echo in AM Qualifiers: Chest pain type: unspecified Qualified Code(s): R07.9 - Chest pain, unspecified (2) Elevated troponin I level Current visit: Yes Status: Acute as above (3) Aortic valve vegetation Current visit: No Status: Acute history of vegetation in December, treated with IV Abx, and no longer seen on TTE in January 2017 (EF 50-55%, no vegetation). No new murmur heard. - OP CHANTE in 2.5 months as previously planned Internal Medicine - H&P: HPI Chief complaint: chest pain Admitted From: Emergency Dept Plans for Post Hospital Care: Home History of present illness: 41M with cholelithiasis, anxiety (not on meds) and aortic valve endocarditis (, possibly due to dental source) has presented with several hours of anterior chest pain which started while he was driving. Sharp, sometimes, right chest and other times towards left chest. Episodic, 15 min episode at a time, resolves spontaneously. Non-pleuritic, non-exertional, non-tender. No change with SL nitroglycerin. Blurred vision, headache, dizziness, diaphoresis. Chills for 2 months. A 10-point ROS is otherwise negative. PMH: as above PSH: right shoulder surgery SH: Lifelong non-smoker. Rare alchol use. Remote use of cocaine and amphetamines , denies recent use. FH: Father-CA and CABG @ 41. Mother CABG at 60. Past Med Surg Social Fam HX - Past Medical History Medical history: valvular heart disease Psychiatric history: anxiety, depression - Past Surgical History Surgical History: appendectomy, orthopedic, other, sinus surgery - Social History Smoking Status: Never smoker Smokeless Tobacco Status: No Alcohol use: occasionally Drug use: opiates, methamphetamine, prescription drug abuse - Family History Father Hx Family Cardiac Disorders: Yes (bypass x3) Hx Family Respiratory Disorders: Yes (COPD) Mother Hx Family Cardiac Disorders: Yes (bypass x4 at approximately 61 years of age. ) Hx Family Endocrine Disorder: Yes (DM) Internal Medicine - H&P: Meds HydrOXYzine Pamoate [Vistaril] 50 mg PO TID PRN 02/21/17 [History] Sertraline [Zoloft] 100 mg PO DAILY 02/21/17 [History] 3 Allergy/AdvReac Type Severity Reaction Status Date / Time Penicillins Allergy Hives Verified 02/21/17 07:16 All Systems PM: A 10-system review of systems was performed and is negative for pertinent findings except as documented above in the HPI. - Constitutional Vitals: Temp Pulse Resp BP Pulse Ox 97.4 F L 105 16 122/84 98 03/08/17 01:05 03/08/17 01:05 03/08/17 01:05 03/08/17 01:05 03/08/17 01:05 General appearance: Present: A&O X 3, pleasant, no acute distress - Head Head exam: Present: atraumatic, normocephalic - Eye Eye exam: Present: PERRL, conjuntiva pink, sclera anicteric Pupils: Present: PERRL - Neck Neck exam general surgery: Present: supple. Absent: nuchal rigidity - Respiratory Respiratory exam: Present: CTAB. Absent: accessory muscle use, rales, rhonchi, wheezes - Cardiovascular Cardiovascular exam: Present: RRR, +S1, +S2. Absent: diastolic murmur, gallop, rubs, systolic murmur - GI/Abdominal GI/Abdominal exam: Present: normal bowel sounds, soft, no peritoneal signs. Absent: distended, guarding, rebound, rigid, tenderness - Extremities Exam Extremities exam: Present: warm, radial pulses palpable and symmetrical. Absent : calf tenderness, cyanotic, pedal edema - Neurological Exam Neurological exam: Present: CN II-XII intact, oriented X3, no focal deficits. Absent: facial droop, speech deficit - Psychiatric Psychiatric exam: Present: normal affect, normal mood - Skin Skin exam: Present: dry, intact Internal Med - H&P Results - Labs CBC & Chem 7: 03/07/17 23:52 03/07/17 21:56 - EKG Data -: EKG Interpreted by Myself (Sinus 112 bpm, QTc 374, no acute ischemic changes)
[2017-03-08 01:46] LABS: INR 1.1; Prothrombin Time 12.3 Seconds (9.4-12.1)
[2017-03-08 01:55] LABS: Activated Partial Thrombo Time > 360.0 Seconds (26.0-36.0)
[2017-03-08] MEDS ORDERED: Acetaminophen 325 MG TABLET PO PRN (02:09)
[2017-03-08] MEDS ORDERED: Naloxone 0.4 MG/ML INJ IVP PRN (02:09)
[2017-03-08] MEDS ORDERED: Ondansetron 4 MG/2 ML VIAL IVP PRN (02:09)
[2017-03-08] MEDS ORDERED: Mag Hydrox/Al Hydrox/Simeth 30 ML UDC PO PRN (02:09)
[2017-03-08] MEDS ORDERED: *HR* Morphine 2 MG/ML SYRINGE IVP PRN (02:09)
[2017-03-08 02:10] LABS: Heparin anti-factor XA UFH 0.81 IU/mL (0.30-0.70)
[2017-03-08 05:40] LABS: Chol/HDL Ratio 4.6 (0-4.9)
[2017-03-08] MEDS ORDERED: Aspirin 81 MG TAB.CHEW PO SCH (09:00)
[2017-03-08] MEDS: traMADol 50 MG TABLET PO PRN ×2 (10:21→16:10)
--- NOTE | 2017-03-08 10:26 | Event Note ---
Date of Encounter: 03/08/17 Time of Encounter: 08:45 Patient seen and evaluated. He was admitted early this morning due to chest pain. He was started on heparin drip in the emergency room due to suspicion of acute coronary syndrome. Currently, patient reports that he continues to have 8/10 pain in the left side of his chest that is sharp and stabbing in nature without any aggravating or relieving factors. He states that the pain started yesterday evening while he was resting. He denies any illicit drug use including cocaine, amphetamines, opioids. He reports that he was recently in the hospital 3 months ago at which time he was diagnosed with possible infective endocarditis and received antibiotics in the hospital but did not receive any outpatient antibiotic therapy. On exam, patient has reproducible chest wall tenderness in the precordial and midsternal region. Clear breath sounds bilaterally. No murmurs, rubs or gallops. First and second heart sounds present. Labs reviewed. Old records reviewed-patient was admitted in the past for suspected infective endocarditis. However, patient left AMA after his first admission. When he returned, the patient did not have fever or chills. He met only one major [place] criteria for infective endocarditis according to infectious disease note. He was monitored off antibiotics. He did not develop any fever or chills. Hence, his vegetation that was noted on the initial transesophageal echocardiogram was felt to be not related to infective endocarditis. He was discharged without antibiotics and instructed to follow up with infectious disease and cardiology in 3 months for repeat transesophageal echocardiogram. It seems the patient has not done this. Also, review of his records reveals that his urine toxicology screen was positive for amphetamines and cocaine in the past. Assessment/plan: 1. Precordial chest pain-cardiac versus noncardiac in etiology. Could be related to amphetamine use. We will obtain urine toxicology this admission. Patient is currently on heparin drip that was started in the emergency room. Continue until the patient is evaluated by cardiology. Lidoderm patch for pain control. Discontinue morphine given his history of polysubstance abuse. Tramadol as needed for pain by mouth.
[2017-03-08 11:00] VITALS: BP 116/82
--- NOTE | 2017-03-08 11:14 | Cardiology Consult Note ---
Date of Encounter: 03/08/17 Time of Encounter: 10:00 Assessment and Plan (1) Elevated troponin I level Current Visit: Yes Status: Acute Per cardiology: -Troponin 0.06, 0.07, 0.05. -Troponins flat and adynamic. -ECG with no ischemic changes. -ADmits to current atypical chest pain. -Primary service checking tox screen. -Per discussion with , will check excercise, nuclear stress test. -Further recommendations pending stress. (2) Chest pain Current Visit: Yes Status: Acute Per cardiology: -Admits to chest pain that is constant. -Started at rest, -Admits to current chest pain. -troponins mildly elvated. -ECG with no ischemic changes. -Per discussion with , will check excercise nuclear stress test. -Will continue to monitor. Qualifiers: Chest pain type: unspecified Qualified Code(s): R07.9 - Chest pain, unspecified (3) Aortic valve vegetation Current Visit: No Status: Acute Per cardiology: -Known history of vegetation per aortic valve. -WBC normal. -Previous blood cultures reviewed, noted to be negative. -Afebrile. -Patient denies current drug use, however was positive for amphetamines . -will continue to monitor. Discussion w patient/family: The assessment and plan as outlined above was discussed with the patient who expressed understanding and agreement. All questions were answered. Thank you for involving us in the care of your patient. Please call with any questions. Discussed and reviewed with . History of Present Illness Consult date: 03/08/17 Requesting physician: Erick Gonzalez Consult reason: chest pain, elevated troponin Chief complaint: chest pain History of present illness: Mr. Mehta is a 41 year old male with a relevant past medical history of endocarditis with vegetation on aortic valve, anxiety, and depression. Patient reports he was driving in his truck and had onset of midsternal chest pain that radiated to bilateral shoulders. Patient denies aggravating or alleviating factors. Patient denies excertional chest pain. Patient reports some mild shortness of breath. Patient states fatigue is about baseline. Patient denies use of illicit substances. Patient states he was told his aortic valve vegetation has resolved, but is unsure who told him this. Past Med Surg Social Fam HX - Past Medical History Attestation: Yes The following information was validated with the patient. Source: patient, old records reviewed Medical history: seizures, valvular heart disease Psychiatric history: anxiety, depression - Past Surgical History Surgical History: appendectomy, orthopedic, other, sinus surgery - Social History Smoking Status: Never smoker Smokeless Tobacco Status: No Alcohol use: occasionally Drug use: opiates, methamphetamine, prescription drug abuse - Family History Father Living Status: Age at : 70 Hx Family Cardiac Disorders: Yes (bypass x3) Hx Family Respiratory Disorders: Yes (COPD) Mother Hx Family Cardiac Disorders: Yes (bypass x4 at approximately 61 years of age. ) Hx Family Endocrine Disorder: Yes (DM) Medications and Allergies HydrOXYzine Pamoate [Vistaril] 50 mg PO TID PRN 02/21/17 [History] Omeprazole [PriLOSEC] 40 mg PO DAILY 03/08/17 [History] 3 Allergy/AdvReac Type Severity Reaction Status Date / Time Penicillins Allergy Hives Verified 02/21/17 07:16 All Systems Review: A 10-system review of systems was performed and is negative for pertinent findings except as documented above in the HPI. - Cardiovascular Cardiovascular: as per HPI, chest pain at rest, dyspnea on exertion Physical Examination Vital Signs, Last 4 Hours Temp Pulse Resp BP Pulse Ox 03/08/17 10:00 98.2 F 91 15 116/82 99 03/08/17 09:16 97 General: Conversant, No Apparent Distress HEENT: Atraumatic, Normocephaly, Mucus Membranes Moist Neck: No JVD, Normal carotid pulses Cardiac: Reg Rate and Rhythm, Normal S1 and S2, No Murmur Lungs: Normal Breath Sounds, No Wheeze, Rales, Rhonchi Neuro: Alert and responsive, No focal deficits noted Abdomen: Soft, Non-Tender Skin: No rashes noted on visualized skin Musculoskeletal: No Chest Wall Tenderness Extremities: No Clubbing, No Cyanosis, No Edema, Normal Pulses Results 03/07/17 23:52 03/07/17 21:56 Lab Results Impressions Chest X-Ray 03/07/17 21:22 IMPRESSION: 1. No active pulmonary disease. D/ / Abhijit Lucas MD / Abhijit Lucas MD Interpreting Provider: Abhijit Lucas MD Active Medications Acetaminophen (Tylenol) 650 mg PO Q6HR PRN PRN Reason: Mild Pain (1-3) Stop: 09/07/17 02:10 Al Hydrox/Mg Hydrox/Simethicone (Maalox) 15 ml PO Q6HR PRN PRN Reason: Dyspepsia Stop: 09/07/17 02:10 Aspirin (Aspirin) 81 mg PO DAILY JONATHAN Stop: 09/07/17 09:01 Last Admin: 03/08/17 10:21 Dose: 81 mg Atorvastatin Calcium (Lipitor) 80 mg PO HS JONATHAN Stop: 09/07/17 02:31 Last Admin: 03/08/17 04:01 Dose: 80 mg Heparin Sodium (Porcine) (Heparin) 4,000 unit IVP Q6HR PRN PRN Reason: SEE COMMENTS Stop: 09/06/17 23:23 Heparin Sodium (Porcine) (Heparin) 2,000 unit IVP Q6H PRN PRN Reason: SEE COMMENTS Stop: 09/06/17 23:23 Heparin Sodium/Dextrose (Heparin 25,000 Unit/500 Ml D5w) 25,000 unit in 500 mls @ 20.793 mls/hr IVC .Q24H JONATHAN; 12 UNIT/KG/HR PRN Reason: Protocol Stop: 09/06/17 23:31 Last Titration: 03/08/17 06:32 Dose: 8.99 unit/kg/hr, 15.594 mls/hr Lidocaine HCl (Lidoderm 5% Patch) 1 each TP DAILY JONATHAN Stop: 09/07/17 09:01 Last Admin: 03/08/17 10:20 Dose: 1 each Naloxone HCl (Narcan) 0.4 mg IVP Q2MIN PRN PRN Reason: Opioid Reversal Stop: 09/07/17 02:10 Ondansetron HCl (Zofran) 4 mg IVP Q8HR PRN PRN Reason: Nausea And Vomiting Stop: 09/07/17 02:10 Last Admin: 03/08/17 05:44 Dose: 4 mg Tramadol HCl (Ultram) 50 mg PO Q6HR PRN PRN Reason: Severe Pain Stop: 09/07/17 09:02 Last Admin: 08/29/17 10:21 Dose: 50 mg Laboratory Tests 03/07/17 03/07/17 03/07/17 21:56 21:56 21:56 Hgb 15.5 Creatinine 1.19 Troponin I 0.06 H* 03/08/17 03/08/17 04:55 11:06 Hgb Creatinine Troponin I 0.07 H* 0.05 H* - Imaging and Cardiology Chest Xray: report reviewed Echo: report reviewed - EKG Interpretation EKG results cardiology: personally reviewed (ECG with ST, HR 112.), other ( Telemetry reviewed with average HR 89, sinus rhythm. PACs noted.) Consult Discharge Plan - Plan Referrals: NONE,PCP [Primary Care Provider] -
--- NOTE | 2017-03-08 14:45 | Nuclear Medicine Stress Report ---
Exercise Nuclear Stress Name: Trevor Mehta Date of Study: 03/08/2017 Date: 1975 Ht: 69.0 in Medical Record#: [id number] Age: 41 Wt: 191.0 lb Gender: Male Order #: [id number] Location: [facility] Room: [facility] Supervising Provider: Saurav Harris CNP Reading Physician: Kyler Brian DO, SHELDON, REIC ALBA Ordering Physician: Guillaume Estevez MD Primary Care Physician: Hernan Mccord DO Stress Technologist: Elmer Matute CRT Dishwasher Preparer: Fortunato Gallego Indications: Chest Pain Impression: Exercise ECG is negative for ischemia. The exercise capacity was good. No chest pain. Gated EF = 52%. Perfusion imaging was negative for ischemia or infarct. Stress Test Summary: Stress Test Type: Treadmill Protocol: Michael Baseline Information: Initial Heart Rate: 108 Blood Pressure: 98/62 Stress Information: Stress Time: 7 min 10 sec Test Terminated Due to (primary): Fatigue Maximum Blood Pressure: 134/76 Maximum Heart Rate: 152 Percent Maximum Heart Rate Achieved: 85 Double Product: [id number] METS Reached: 9.4 Symptoms: No chest symptoms, Fatigue Nuclear Summary: SPECT myocardial perfusion imaging using Tc99m Sestamibi given intravenously was performed at rest and following cardiac stress testing. The resting images were obtained following initial dose of 9.7 mCi. Following stress an additional dose of 35.6 mCi was given at peak exercise or 30 seconds post regadenoson infusion. Medication Given: Time Medication Dose Units Route Findings: Stress Note * Sinus tachycardia at rest. * No baseline arrhythmias were noted. * Exercise ECG is negative for ischemia. * No arrhythmias were noted during stress. * The exercise capacity was good. * Patient had no chest pain during stress. Hemodynamic responses * Normal hemodynamic responses to exercise. Study Quality * Study quality is good. Gated EF % * Gated EF = 52%. Left Ventricle * The left ventricle is not dilated. * LVEDV = 88 mL. NORMALS * Normal wall motion. * Normal Segmental Perfusion in rest. * Normal segmental perfusion in stress. TID * No evidence of transient ischemic dilatation. TID ratio * TID ratio = 1.0. Lung Uptake * There is no evidence of increase lung uptake. Updated by Kyler Brian DO, SHELDON, PARTH, ERIC on 03/08/2017 2:39:09 PM electronically signed on 03/08/2017 2:39:52 PM with status of Final
--- NOTE | 2017-03-08 14:50 | Event Note ---
Date of Encounter: 03/08/17 Time of Encounter: 14:49 - Cardiology Event Note Excercise nuclear stress test negative for ischemia or infarct. Cardiology will sign off and will follow in outpatient setting. Follow up set.
--- NOTE | 2017-03-08 15:03 | Discharge Summary ---
Date of Encounter: 03/08/17 Time of Encounter: 08:45 - Discharge Diagnosis (1) Chest pain Priority: Primary Status: Chronic Qualifiers: Chest pain type: precordial pain Qualified Code(s): R07.2 - Precordial pain - Discharge Medications Home Medications: HydrOXYzine Pamoate [Vistaril] 50 mg PO TID PRN 02/21/17 [History] Omeprazole [PriLOSEC] 40 mg PO DAILY 03/08/17 [History] Allergies/Adverse Reactions: 3 Allergy/AdvReac Type Severity Reaction Status Date / Time Penicillins Allergy Hives Verified 02/21/17 07:16 Procedures/tests Complete & Pending: Procedures Performed prior 72 hours Category Date Time Status NM conner perf SPECT multi [NM] Routine Exams 03/08/17 10:35 Taken ECG 12 lead ECG [ECG] AM 0600 Y 03/08/17 06:00 Ordered SP exercise nuclear stress Routine Y 03/08/17 10:35 Completed Date of admission: 03/07/17 23:57 Primary care physician: PCP NONE Consults: 03/08/17 06:00 Consult to Cardiology [CONS] Routine Comment: Consulting Provider: Cardiology Kayy Reason for Consult: chest pain, mild troponin elevation Call Completed: No Discharging clinician: Guillaume Estevez Anticipated date of discharge: 03/08/17 - Patient Status Disposition: Home, Self-Care Condition: Good Functional capacity at discharge: independent ambulation Overall status at discharge: patient is back to baseline - Discharge Instructions Follow Up With: NONE,PCP [Primary Care Provider] - Michael Hamilton MD [Partnered Physician] - - Diet and Activity Activity: increase activity as tolerated, resume usual activities as tolerated Diet: advance to your usual diet Hospital course: Mr. Mehta is a 41 year old male who presented to the emergency room due to chest pain. In the emergency room, he was started on heparin drip and admitted for chest pain observation. The patient had mildly elevated troponin at the time of presentation. He does have a history of amphetamine and cocaine use in the past. Cardiology was consulted to evaluate the patient. The patient underwent a pharmacologic stress test. Stress test was negative for reversible ischemia. Hence, his chest pain is noncardiac. Cardiology has signed off and he has been instructed to follow-up with cardiology as an outpatient. He as he has been cleared by cardiology to be discharged and his stress test is negative for cardiac causes of chest pain, he has been deemed stable to be discharged home today. - Time Spent with Patient Total time spent providing and/or coordinating discharge services: - Constitutional Vitals: Temp Pulse Resp BP Pulse Ox 98.2 F 91 15 116/82 99 03/08/17 10:00 03/08/17 10:00 03/08/17 10:00 03/08/17 10:00 03/08/17 10:00 General appearance: Present: A&O X 3, pleasant, no acute distress Exam: Gen.: Lying in bed. No acute distress. Chest: Clear to auscultation bilaterally. No adventitious sounds present. Reproducible chest wall tenderness present. CVS: First and second heart sounds present. No murmurs, rubs or gallops. Abdomen: Soft, nontender, nondistended. Bowel sounds present. No hepatosplenomegaly. - VTE Reasons for not Prescribing Prophylaxis: Treatment not Indicated - Low risk for VTE
--- NOTE | 2017-03-08 17:07 | Electrocardiograph Report ---
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
== END 2017-03-08 17:15 | disposition home or self-care (01) ==
LOC: 2NENU 21:09 → EMEROO 21:09 → 2NENU 03-08 00:28
PROVIDERS: ADMIT Internal Medicine; ATTEND Internal Medicine Sleep Medicine

== ENCOUNTER 2017-03-21 22:14 | Observation (INO) ==
[2017-03-21 23:14] LABS: Basophils % 0.1 %; Hematocrit 42.6 % (37.5-50.1); Hemoglobin 13.8 g/dL (12.9-16.9); Immature Granulocytes % 0.9 % (0-4); Lymphocytes # 1.2 K/mcL (0.6-4.6); Mean Corpuscular HGB Conc 32.4 g/dL (31.6-35.5); Mean Corpuscular Hemoglobin 29.4 pg (28.0-33.3); Mean Corpuscular Volume 90.6 fL (83.0-100.0); Mean Platelet Volume 10.1 fL (9.4-12.4); Monocytes # 0.6 K/mcL (0.0-1.3); Monocytes % 6.4 %; Neutrophils # 7.6 K/mcL (1.6-8.9); Platelet Count 368 K/mcL (140-400); Segmented Neutrophils % 79.6 %
[2017-03-21 23:16] LABS: Prothrombin Time 10.4 Seconds (9.4-12.1)
[2017-03-21 23:18] LABS: Activated Partial Thrombo Time 30.1 Seconds (26.0-36.0)
[2017-03-21 23:25] LABS: BUN/Creatinine Ratio 12 (6-26); Blood Urea Nitrogen 15 mg/dL (8-26); Calcium 9.5 mg/dL (8.6-10.8); Carbon Dioxide 30 mEq/L (19-29); Chloride 100 mEq/L (98-109); Glucose 139 mg/dL (70-99); Osmolality,Calculated 293 (280-300); Sodium 140 mEq/L (136-145); eGFR For African Americans > 60 (> 60); eGFR For Non-African Americans > 60 (> 60)
[2017-03-21] MEDS ORDERED: Aspirin 81 MG TAB.CHEW PO ONE (23:37)
[2017-03-21] MEDS ORDERED: Levofloxacin 750 MG/150 ML 750 MG/150 ML BAG IVPB ONE (23:51)
[2017-03-22] MEDS ORDERED: Vancomycin 1,000 MG in D5% in Water 250 ML IVPB ONE (00:11)
--- NOTE | 2017-03-22 00:14 | Emergency Department Note ---
Disposition Clinical Impression: Pneumonia Qualifiers: Pneumonia type: due to unspecified organism Laterality: unspecified laterality Lung location: unspecified part of lung Qualified Code(s): J18.9 - Pneumonia, unspecified organism Disposition: Admitted As Inpatient Condition: Good Referrals: NONE,PCP [Primary Care Provider] - Forms: ED Satisfaction Letter Time of Disposition: 00:50 General Adult HPI - General Chief complaint: ED Upper Respiratory Infection Stated complaint: cough Time Seen by Provider: 03/21/17 22:52 Source: patient Limitations: no limitations Nursing Notes Reviewed: Yes Vital Signs Reviewed: Yes - History of Present Illness HPI Narrative: 41 year old male wih HX of endocarditis presents to the ED with complaints of NADINE and chest pain and productive cough. Abdulaziz states taht he was most recelty admitted for [facility] 2 weeks ago and was diagnosed with endocarditis. Lamarnet states that his chest pain is generlized and radiation into this back. Lamarwilbert states that he has productive cough with minimal sputum and some shortness of breath assocaited with it as well. subejctive fevers and chills at home. Abdulaziz is concerned he has endocarditis again. Denies any other skin rashes. Pain Scale: 7 - Related Data Home Medications Medication Instructions Recorded Confirmed HydrOXYzine Pamoate [Vistaril] 50 mg PO TID PRN 02/21/17 03/08/17 Omeprazole [PriLOSEC] 40 mg PO DAILY 03/08/17 03/08/17 Previous Rx's Medication Instructions Recorded predniSONE [PredniSONE] 40 mg PO DAILY #10 tablet 03/19/17 Allergies Allergy/AdvReac Type Severity Reaction Status Date / Time Penicillins Allergy Hives Verified 03/21/17 22:45 Constitutional: Denies: fever, chills, weakness, weight change Eyes: Denies: eye pain, eye discharge, vision change ENT ED: Denies: ear pain, throat pain, dental pain, hearing loss, epistaxis, congestion, dysphagia Cardiovascular: Reports: chest pain. Denies: palpitations, dyspnea on exertion , edema, syncope Respiratory: Reports: cough, dyspnea. Denies: wheezes, hemoptysis, stridor Gastrointestinal: Denies: abdominal pain, nausea, vomiting, diarrhea, constipation, hematemesis, melena, hematochezia Genitourinary: Denies: urgency, dysuria, frequency, hematuria Musculoskeletal: Denies: back pain, neck pain, arthralgia, myalgia Integumentary: Denies: rash, abrasion, lesions Neurological: Denies: headache, weakness, numbness, paresthesias, confusion, abnormal gait, vertigo Psychiatric: Denies: anxiety, depression, suicidal thoughts, homicidal thoughts , auditory hallucinations, visual hallucinations Endocrine: Denies: fatigue Hematological/Lymphatic: Denies: easy bleeding, easy bruising Allergic/Immunologic: Denies: facial swelling, urticaria Past Medical History - Past Medical History Medical history: Reports: seizures, valvular heart disease Surgical history: Reports: appendectomy, orthopedic, other, sinus surgery Psychiatric history: Reports: anxiety, depression - Social History Smoking Status: Never smoker Smokeless Tobacco Status: No Alcohol use: Reports: occasionally Drug use: Reports: opiates, methamphetamine, prescription drug abuse Physical Exam - General Limitations: no limitations General appearance: alert, in no apparent distress - Head Head exam: atraumatic, normocephalic, normal inspection - Eye Eye exam: Present: normal appearance, PERRL, EOMI - Expanded Eye Exam Pupils: Left: reactive - ENT ENT exam: normal exam, normal oropharynx, mucous membranes moist - Expanded ENT Exam External ear exam: Present: normal external inspection Mouth exam: Present: normal external inspection Teeth exam: Present: normal inspection Throat exam: Present: normal inspection - Neck Neck exam: Present: normal inspection, full ROM, trachea midline - Chest Chest inspection: Present: normal inspection, symmetric chest wall rise - Respiratory Respiratory exam: Present: normal lung sounds bilaterally - Cardiovascular Cardiovascular exam: Present: regular rate, normal rhythm, normal heart sounds - Abdominal Exam Abdominal exam: Present: soft, Non-Tender. Absent: tenderness, distention, guarding, rebound, rigidity - Extremities Exam Extremities exam: Present: normal inspection, full ROM. Absent: tenderness, pedal edema - Expanded Upper Extremity Exam Shoulder exam: Present: normal inspection, full ROM Arm exam: Present: normal inspection, full ROM Elbow exam: Present: normal inspection, full ROM Forearm/Wrist exam: Present: normal inspection, full ROM Hand exam: Present: normal inspection, full ROM Vascular exam: Normal: capillary refill, radial pulse - Expanded Lower Extremity Exam Hip/Pelvis exam: Present: normal inspection, full ROM Upper leg exam: Present: normal inspection, full ROM Knee exam: Present: normal inspection, full ROM Lower leg exam: Present: normal inspection, full ROM Ankle exam: Present: normal inspection, full ROM Foot/toe exam: Present: normal inspection, full ROM Neurovascular/Tendon exam: Absent: motor deficit, sensory deficit, tendon deficit - Back Exam Back exam: Present: normal inspection, full ROM. Absent: tenderness - Neurological Exam Neurological exam: Present: alert, oriented X3 - Expanded Neurological Exam Patient oriented to: Present: person, place, time Coma Scale Eye Opening: Spontaneous Coma Scale Motor Response: Obeys Commands Coma Scale Verbal Response: Oriented Coma Scale Total: 15 - Psychiatric Psychiatric exam: Present: normal affect, normal mood - Skin Skin exam: Present: warm, dry, intact, normal color Course Course Narrative: chest pain workup and CTA chest to rule out endocarditis and PE. - Reevaluation(s) Reevaluation #1: abdulaziz has pneumonia and we will start HCAP therapy and admit to medicine. elevated troponin, ASA given. Time: 00:14 - Consultations Consultation #1: discussed case with Dr. latman and he accepts painte for admission Time: 00:49 Vital Signs Temperature 97.9 F 03/21/17 22:40 Pulse Rate 83 03/21/17 22:40 Respiratory Rate 20 03/21/17 22:40 Blood Pressure 144/88 03/21/17 22:40 O2 Sat by Pulse Oximetry 98 03/21/17 22:40 Temperature 97.9 F 03/21/17 22:40 Pulse Rate 104 03/21/17 23:53 Respiratory Rate 18 03/21/17 23:53 Blood Pressure 128/94 03/21/17 23:53 O2 Sat by Pulse Oximetry 100 03/21/17 23:53 Oxygen Delivery Oxygen Delivery Room Air Medical Decision Making - Lab Data Result diagrams: 03/21/17 23:01 03/21/17 23:01 Lab Results 03/21/17 03/21/17 03/21/17 Range/Units 23:01 23:01 23:01 WBC 9.5 (4.3-11.1) K/mcL RBC 4.70 (4.19-5.50) M/mcL Hgb 13.8 (12.9-16.9) g/dL Hct 42.6 (37.5-50.1) % MCV 90.6 (83.0-100.0) fL MCH 29.4 (28.0-33.3) pg MCHC 32.4 (31.6-35.5) g/dL RDW 12.0 (11.5-14.5) % Plt Count 368 (140-400) K/mcL MPV 10.1 (9.4-12.4) fL Immature Gran % 0.9 (0-4) % Seg Neutrophils % 79.6 % Lymphocytes % 13.0 % Monocytes % 6.4 % Eosinophils % 0.0 % Basophils % 0.1 % Neutrophils # 7.6 (1.6-8.9) K/mcL Lymphocytes # 1.2 (0.6-4.6) K/mcL Monocytes # 0.6 (0.0-1.3) K/mcL Eosinophils # 0.0 (0.0-0.6) K/mcL Basophils # 0.0 (0.0-0.2) K/mcL PT (9.4-12.1) Seconds INR APTT (26.0-36.0) Seconds Sodium 140 (136-145) mEq/L Potassium 4.0 (3.5-4.5) mEq/L Chloride 100 (98-109) mEq/L Carbon Dioxide 30 H (19-29) mEq/L BUN 15 (8-26) mg/dL Creatinine 1.21 (0.72-1.25) mg/dL Est GFR ( Amer) > 60 (> 60) Est GFR (Non-Af Amer) > 60 (> 60) BUN/Creatinine Ratio 12 (6-26) Glucose 139 H (70-99) mg/dL Calculated Osmolality 293 (280-300) Lactic Acid 1.6 (0.5-2.2) mmol/L Calcium 9.5 (8.6-10.8) mg/dL Troponin I (0-0.03) ng/mL 03/21/17 03/21/17 Range/Units 23:01 23:01 WBC (4.3-11.1) K/mcL RBC (4.19-5.50) M/mcL Hgb (12.9-16.9) g/dL Hct (37.5-50.1) % MCV (83.0-100.0) fL MCH (28.0-33.3) pg MCHC (31.6-35.5) g/dL RDW (11.5-14.5) % Plt Count (140-400) K/mcL MPV (9.4-12.4) fL Immature Gran % (0-4) % Seg Neutrophils % % Lymphocytes % % Monocytes % % Eosinophils % % Basophils % % Neutrophils # (1.6-8.9) K/mcL Lymphocytes # (0.6-4.6) K/mcL Monocytes # (0.0-1.3) K/mcL Eosinophils # (0.0-0.6) K/mcL Basophils # (0.0-0.2) K/mcL PT 10.4 (9.4-12.1) Seconds INR 1.0 APTT 30.1 (26.0-36.0) Seconds Sodium (136-145) mEq/L Potassium (3.5-4.5) mEq/L Chloride (98-109) mEq/L Carbon Dioxide (19-29) mEq/L BUN (8-26) mg/dL Creatinine (0.72-1.25) mg/dL Est GFR ( Amer) (> 60) Est GFR (Non-Af Amer) (> 60) BUN/Creatinine Ratio (6-26) Glucose (70-99) mg/dL Calculated Osmolality (280-300) Lactic Acid (0.5-2.2) mmol/L Calcium (8.6-10.8) mg/dL Troponin I 0.05 H* (0-0.03) ng/mL - EKG Data EKG #1 EKG attestation: Yes I reviewed and interpreted this EKG. EKG results narrative: NSR with rate of 84. NO STEMI. normal intervals. no ole ekg. 2560
--- NOTE | 2017-03-22 01:01 | Internal Med History&Physical ---
Date of Encounter: 03/22/17 Time of Encounter: 01:01 Internal Medicine - H&P: HPI Admitted From: Home Plans for Post Hospital Care: Home History of present illness: Mr. Mehta is a 41 year old male with a PMH of IVDU, endocarditis, and seizures presented c/o SOB, chest pain, and productive cough. Chest pain is diffuse and radiates to his back. 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 Buster reports subjective fevers, chills, and productive cough. He denies lymphadenopathy, palpitations, N/V/D, abd pain, dysuria, edema, or rash. Past Med Surg Social Fam HX - Past Medical History Medical history: seizures, valvular heart disease Psychiatric history: anxiety, depression - Past Surgical History Surgical History: appendectomy, orthopedic, other, sinus surgery - Social History Smoking Status: Never smoker Smokeless Tobacco Status: No Alcohol use: occasionally Drug use: opiates, methamphetamine, prescription drug abuse - Family History Father Living Status: Hx Family Cardiac Disorders: Yes (bypass x3) Hx Family Respiratory Disorders: Yes (COPD) Mother Hx Family Cardiac Disorders: Yes (bypass x4 at approximately 61 years of age. ) Hx Family Endocrine Disorder: Yes (DM) Internal Medicine - H&P: Meds HydrOXYzine Pamoate [Vistaril] 50 mg PO TID PRN 02/21/17 [History] Omeprazole [PriLOSEC] 40 mg PO DAILY 03/08/17 [History] predniSONE [PredniSONE] 40 mg PO DAILY #10 tablet 03/19/17 [Rx] 3 Allergy/AdvReac Type Severity Reaction Status Date / Time Penicillins Allergy Hives Verified 03/21/17 22:45 All Systems PM: A 10-system review of systems was performed and is negative for pertinent findings except as documented above in the HPI. - Constitutional Vitals: Temp Pulse Resp BP Pulse Ox 97.9 F 104 18 128/94 100 03/21/17 22:40 03/21/17 23:53 03/21/17 23:53 03/21/17 23:53 03/21/17 23:53 Internal Med - H&P Results - Labs CBC & Chem 7: 03/21/17 23:01 03/21/17 23:01 Labs: Short CBC 03/21/17 Range/Units 23:01 WBC 9.5 (4.3-11.1) K/mcL Hgb 13.8 (12.9-16.9) g/dL Hct 42.6 (37.5-50.1) % Plt Count 368 (140-400) K/mcL Neutrophils # 7.6 (1.6-8.9) K/mcL BMP 03/21/17 23:01 Sodium 140 Potassium 4.0 Chloride 100 Carbon Dioxide 30 H BUN 15 Creatinine 1.21 Glucose 139 H Calcium 9.5 Cardiac Enzymes 03/21/17 Range/Units 23:01 Troponin I 0.05 H* (0-0.03) ng/mL - Impressions ITS Impressions Chest CTA 03/21/17 22:53 IMPRESSION: No CT evidence pulmonary embolism. Left lower lobe bronchial wall thickening and patchy airspace disease, likely infectious airways disease/pneumonia D/ / Carolin Cole Cha, MD / Carolin Cole Cha, MD Interpreting Provider: Carolin Cole Cha, MD Chest X-Ray 03/21/17 22:53 IMPRESSION: Left basilar atelectasis versus developing pneumonia. D/ / Sarah Boykin MD / Sarah Boykin MD Interpreting Provider: Sarah Boykin MD
[2017-03-22] MEDS ORDERED: Acetaminophen 325 MG TABLET PO PRN (01:58)
[2017-03-22] MEDS ORDERED: Ondansetron 4 MG/2 ML VIAL IVP PRN (01:58)
[2017-03-22] MEDS ORDERED: Naloxone 0.4 MG/ML INJ IVP PRN (01:58)
--- NOTE | 2017-03-22 01:58 | Internal Med History&Physical ---
Date of Encounter: 03/22/17 Time of Encounter: 01:30 Assessment and Plan (1) Healthcare-associated pneumonia Current visit: Yes Status: Acute Patient presents with complaints of cough, sputum changes, fever, found to have pneumonia on CT examination of his chest. Patient appears stable without leukocytosis, tachycardia, tachypnea, or fever. He recently had exposure to healthcare system less than 2 weeks ago and has been on clindamycin after the vancomycin due to concern of suspected endocarditis. Will treat patient for hospital-acquired pneumonia. We will start on Levaquin, aztreonam, vancomycin We will obtain sputum cultures Tylenol as needed for fever We will place patient on continuous pulse oximetry (2) Elevated troponin I level Current visit: No Status: Acute Patient is in with troponin of 0.05. This is stable from his last hospitalization taken less than 2 weeks ago. Patient does not report symptoms concerning for ACS and EKG was negative for ischemic change. We will obtain one additional troponin We will continue telemetry (3) DVT prophylaxis Current visit: No Status: Acute 40 mg enoxaparin subcutaneous daily Internal Medicine - H&P: HPI Chief complaint: Cough and chest pain Admitted From: Home Plans for Post Hospital Care: Home History of present illness: Mr. Mehta is a 41 year old male with prior medical history of recent hospitalization due to suspected endocarditis (after evaluation was not), seizures, and vegetation seen on heartfelt presents to [place] after several days of progressive cough and chest pain. He states the cough began first in the chest pain is only result of coughing. He describes his chest pain is sharp in character and located on his ribs on his left side that is exacerbated by coughing and not made better by anything. The cough has been productive of green sputum, but he reports that is its normal color. He reports having some fever/chills at home. His troponins were found to be elevated at presentation, though this is persistent from his last hospitalization. He denies having shortness of breath, exertional quality of chest pain, nausea/vomiting, abdominal pain. He denies diaphoresis or radiation of his chest pain. Past Med Surg Social Fam HX - Past Medical History Medical history: seizures, valvular heart disease Psychiatric history: anxiety, depression - Past Surgical History Surgical History: appendectomy, orthopedic, other, sinus surgery - Social History Smoking Status: Never smoker Smokeless Tobacco Status: No Alcohol use: occasionally Drug use: opiates, methamphetamine, prescription drug abuse - Family History Father Living Status: Hx Family Cardiac Disorders: Yes (bypass x3) Hx Family Respiratory Disorders: Yes (COPD) Mother Hx Family Cardiac Disorders: Yes (bypass x4 at approximately 61 years of age. ) Hx Family Endocrine Disorder: Yes (DM) Internal Medicine - H&P: Meds predniSONE [PredniSONE] 40 mg PO DAILY #10 tablet 03/19/17 [Rx] Clindamycin [Cleocin] 150 mg PO 1-2XD 03/22/17 [History] 3 Allergy/AdvReac Type Severity Reaction Status Date / Time Penicillins Allergy Hives Verified 03/21/17 22:45 Review of systems: Gen: Reports fever/chills, denies weakness, denies fatigue CV: Reports chest pain as per history of present illness, denies exertional chest pain or dyspnea, denies palpitations Resp: Denies shortness of breath, denies dyspnea, denies pleuritic pain, reports cough productive of green mucus, denies wheeze GI: Denies nausea, denies vomiting, denies abdominal pain, denies constipation, denies diarrhea, denies hematochezia, denies melena MSK: denies arthralgia, denies muscle weakness Neuro: Denies headache, denies confusion, denies focal weakness, denies numbness , denies tingling, denies vision changes Skin: Denies bruising, reports rash and itching on bilateral hands (thinks from [place]) : Denies flank pain, denies dysuria, denies hematuria - Constitutional Vitals: Temp Pulse Resp BP Pulse Ox 97.9 F 104 18 129/75 100 03/21/17 22:40 03/21/17 23:53 03/22/17 01:28 03/22/17 01:28 03/21/17 23:53 Exam: General: Cooperative, pleasant, no acute distress, alert and oriented 3, answers questions appropriately HEENT: Normocephalic, atraumatic, neck supple, trachea midline, Conjunctiva pink , sclera anicteric, PERRL, oral mucosa moist, no orophargeal erythema or exudates Respiratory: No accessory muscle usage, Rales auscultated in the lower left lobe Cardiovascular: Regular rate and rhythm, S1 and S2 present, no murmurs/rubs/ gallops/clicks appreciated GI/abdominal: Nondistended, nontender, soft, normal bowel sounds, no peritoneal signs Extremities: No calf tenderness, noncyanotic, no pedal edema appreciated, warm, lower extremity pulses palpable and symmetrical Neurological: Alert and oriented 3, no facial droop, no focal deficits Skin: Dry, intact, normal color Internal Med - H&P Results - Labs CBC & Chem 7: 03/21/17 23:01 03/21/17 23:01
[2017-03-22] MEDS ORDERED: Vancomycin (wt based) 1,000 MG VIAL IVPB SCH (02:00)
--- NOTE | 2017-03-22 03:30 | Event Note ---
Date of Encounter: 03/22/17 Time of Encounter: 03:29 Patient seen and examined with manager medical. Agree with assessment and plan
[2017-03-22] MEDS ORDERED: Ipratropium/Albuterol Neb 3 ML IH PRN (03:41)
[2017-03-22] MEDS: *HR* Enoxaparin 40 MG/0.4 ML SYRINGE SQ SCH (05:41)
[2017-03-22 06:04] LABS: Basophils % 0.1 %; Eosinophils % 0.5 %; Hematocrit 38.9 % (37.5-50.1); Hemoglobin 12.6 g/dL (12.9-16.9); Immature Granulocytes % 1.3 % (0-4); Lymphocytes # 1.8 K/mcL (0.6-4.6); Lymphocytes % 20.9 %; Mean Corpuscular HGB Conc 32.4 g/dL (31.6-35.5); Mean Corpuscular Hemoglobin 29.4 pg (28.0-33.3); Mean Corpuscular Volume 90.9 fL (83.0-100.0); Mean Platelet Volume 10.4 fL (9.4-12.4); Monocytes # 0.6 K/mcL (0.0-1.3); Monocytes % 6.6 %; Neutrophils # 6.2 K/mcL (1.6-8.9); Platelet Count 318 K/mcL (140-400); Red Blood Count 4.28 M/mcL (4.19-5.50); Red Cell Distribution Width 12.1 % (11.5-14.5); Segmented Neutrophils % 70.6 %
[2017-03-22 06:13] LABS: BUN/Creatinine Ratio 11 (6-26); Blood Urea Nitrogen 12 mg/dL (8-26); Calcium 8.9 mg/dL (8.6-10.8); Carbon Dioxide 30 mEq/L (19-29); Chloride 103 mEq/L (98-109); Glucose 105 mg/dL (70-99); Osmolality,Calculated 294 (280-300); Potassium 3.5 mEq/L (3.5-4.5); Sodium 142 mEq/L (136-145); eGFR For African Americans > 60 (> 60); eGFR For Non-African Americans > 60 (> 60)
[2017-03-22] MEDS: Aztreonam 2,000 MG in D5% in Water (Mini-Bag+) 100 ML IVPB SCH ×3 (09:09→23:55)
[2017-03-22] MEDS: Vancomycin 1,500 MG in D5% in Water 250 ML IVPB SCH (12:14)
--- NOTE | 2017-03-22 13:49 | Electrocardiograph Report ---
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
[2017-03-22] MEDS: *HR* HYDROcodone/Acet 5/325 mg TABLET PO PRN ×2 (16:30→22:34)
--- NOTE | 2017-03-22 19:33 | Internal Med Progress Note ---
Date of Encounter: 03/22/17 Time of Encounter: 09:00 - Assessment and plan (1) DVT prophylaxis Current Visit: No Status: Acute Assessment and plan: On Lovenox subcutaneously (2) Elevated troponin I level Current Visit: No Status: Acute Assessment and plan: Stable 2 sets of troponin with 6 hour apart. Patient denies typical chest pain. His chest pain is most likely due to cough. No EKG change. Consider demand ischemia (3) Healthcare-associated pneumonia Current Visit: Yes Status: Acute Assessment and plan: Will continue aztreonam and vancomycin. Add cough syrup. Patient is at high risk because he is on vancomycin, needed close monitoring - Time Spent With Patient Greater than 35 minutes - Subjective Interval history: Patient is a 41-year-old male admitted for cough and chest pain. Consider pneumonia. Patient was seen and examined. Still complaining cough, chest pain on every time of cough. No fever. Denies shortness of breath. vitals are stable - Constitutional Vitals: Temp Pulse Resp BP Pulse Ox 97.9 F 76 18 143/95 98 03/22/17 07:00 03/22/17 16:00 03/22/17 16:00 03/22/17 16:00 03/22/17 16:00 General appearance: Present: A&O X 3, pleasant, no acute distress, answers questions appropriately - Head Head exam: Present: atraumatic, normocephalic - Eye Eye exam: Present: PERRL, conjuntiva pink, sclera anicteric Pupils: Present: PERRL - Neck Neck exam general surgery: Present: supple, trachea midline. Absent: lymphadenopathy - Respiratory Respiratory exam: Present: CTAB. Absent: accessory muscle use, rales, rhonchi, wheezes - Cardiovascular Cardiovascular exam: Present: RRR, +S1, +S2. Absent: diastolic murmur, gallop, rubs, systolic murmur - GI/Abdominal GI/Abdominal exam: Present: normal bowel sounds, soft, no peritoneal signs. Absent: distended, tenderness - Extremities Exam Extremities exam: Present: warm, radial pulses palpable and symmetrical. Absent : calf tenderness, cyanotic, pedal edema - Neurological Exam Neurological exam: Present: CN II-XII intact, oriented X3, no focal deficits. Absent: pronater drift, facial droop, speech deficit - Skin Skin exam: Present: dry, intact Internal Medicine: Result - Labs CBC & Chem 7: 03/22/17 05:31 03/22/17 05:31 Labs: Short CBC 03/22/17 Range/Units 05:31 WBC 8.8 (4.3-11.1) K/mcL Hgb 12.6 L (12.9-16.9) g/dL Hct 38.9 (37.5-50.1) % Plt Count 318 (140-400) K/mcL Neutrophils # 6.2 (1.6-8.9) K/mcL BMP 03/22/17 05:31 Sodium 142 Potassium 3.5 Chloride 103 Carbon Dioxide 30 H BUN 12 Creatinine 1.09 Glucose 105 H Calcium 8.9 Cardiac Enzymes 03/22/17 Range/Units 05:31 Troponin I 0.05 H* (0-0.03) ng/mL - ABG Interpretation ABG results: PT/INR, D-dimer PT 10.4 Seconds (9.4-12.1) 03/21/17 23:01 Consult Discharge Plan - Plan Referrals: NONE,PCP [Primary Care Provider] -
[2017-03-23] MEDS ORDERED: Levofloxacin 500 MG/100 ML 500 MG/100 ML BAG IVPB SCH
[2017-03-23] MEDS: Vancomycin 1,500 MG in D5% in Water 250 ML IVPB SCH ×2 (00:34→11:59)
[2017-03-23 04:44] LABS: Basophils % 0.6 %; Eosinophils % 1.9 %; Hematocrit 42.2 % (37.5-50.1); Hemoglobin 13.9 g/dL (12.9-16.9); Immature Granulocytes % 1.7 % (0-4); Lymphocytes % 30.6 %; Mean Corpuscular HGB Conc 32.9 g/dL (31.6-35.5); Mean Corpuscular Volume 91.1 fL (83.0-100.0); Monocytes % 9.7 %; Platelet Count 329 K/mcL (140-400); Red Blood Count 4.63 M/mcL (4.19-5.50); Red Cell Distribution Width 12.4 % (11.5-14.5); Segmented Neutrophils % 55.5 %
[2017-03-23 04:45] LABS: Basophils # 0.1 K/mcL (0.0-0.2); Eosinophils # 0.2 K/mcL (0.0-0.6); Lymphocytes # 2.6 K/mcL (0.6-4.6); Monocytes # 0.8 K/mcL (0.0-1.3); Neutrophils # 4.7 K/mcL (1.6-8.9)
[2017-03-23 04:48] LABS: BUN/Creatinine Ratio 16 (6-26); Blood Urea Nitrogen 14 mg/dL (8-26); Calcium 9.2 mg/dL (8.6-10.8); Carbon Dioxide 31 mEq/L (19-29); Chloride 104 mEq/L (98-109); Glucose 92 mg/dL (70-99); Osmolality,Calculated 296 (280-300); Potassium 4.1 mEq/L (3.5-4.5); Sodium 143 mEq/L (136-145); eGFR For African Americans > 60 (> 60); eGFR For Non-African Americans > 60 (> 60)
[2017-03-23] MEDS: *HR* Enoxaparin 40 MG/0.4 ML SYRINGE SQ SCH (06:02)
[2017-03-23] MEDS: *HR* HYDROcodone/Acet 5/325 mg TABLET PO PRN ×3 (06:02→19:37)
[2017-03-23] MEDS: Aztreonam 2,000 MG in D5% in Water (Mini-Bag+) 100 ML IVPB SCH ×2 (08:26→16:47)
--- NOTE | 2017-03-23 16:10 | Internal Med Progress Note ---
Date of Encounter: 03/23/17 Time of Encounter: 10:00 - Assessment and plan (1) DVT prophylaxis Current Visit: No Status: Acute Assessment and plan: On Lovenox subcutaneously (2) Elevated troponin I level Current Visit: No Status: Acute Assessment and plan: Stable 2 sets of troponin with 6 hour apart (0.05/0.05). Patient denies typical chest pain. His chest pain is most likely due to cough. No EKG change. Consider demand ischemia (3) Healthcare-associated pneumonia Current Visit: Yes Status: Acute Assessment and plan: Will continue aztreonam and vancomycin. Cont cough syrup. Patient is at high risk because he is on vancomycin, needed close monitoring - Time Spent With Patient Greater than 35 minutes - Subjective Interval history: Patient is a 41-year-old male admitted for cough and chest pain. Consider pneumonia. Patient was seen and examined. Still complaining cough, improved after cough syrup use. chest pain on every time of cough. No fever. Denies shortness of breath. vitals are stable - Constitutional Vitals: Temp Pulse Resp BP Pulse Ox 97.9 F 76 12 123/74 96 03/23/17 15:29 03/23/17 15:29 03/23/17 15:29 03/23/17 15:29 03/23/17 15:29 General appearance: Present: A&O X 3, pleasant, no acute distress, answers questions appropriately - Head Head exam: Present: atraumatic, normocephalic - Eye Eye exam: Present: PERRL, conjuntiva pink, sclera anicteric Pupils: Present: PERRL - Neck Neck exam general surgery: Present: supple, trachea midline. Absent: lymphadenopathy - Respiratory Respiratory exam: Present: CTAB. Absent: accessory muscle use, rales, rhonchi, wheezes - Cardiovascular Cardiovascular exam: Present: RRR, +S1, +S2. Absent: diastolic murmur, gallop, rubs, systolic murmur - GI/Abdominal GI/Abdominal exam: Present: normal bowel sounds, soft, no peritoneal signs. Absent: distended, tenderness - Extremities Exam Extremities exam: Present: warm, radial pulses palpable and symmetrical. Absent : calf tenderness, cyanotic, pedal edema - Neurological Exam Neurological exam: Present: CN II-XII intact, oriented X3, no focal deficits. Absent: pronater drift, facial droop, speech deficit - Skin Skin exam: Present: dry, intact Internal Medicine: Result - Labs CBC & Chem 7: 03/23/17 03:58 03/23/17 03:58 Labs: Short CBC 03/23/17 Range/Units 03:58 WBC 8.4 (4.3-11.1) K/mcL Hgb 13.9 (12.9-16.9) g/dL Hct 42.2 (37.5-50.1) % Plt Count 329 (140-400) K/mcL Neutrophils # 4.7 (1.6-8.9) K/mcL BMP 03/23/17 03:58 Sodium 143 Potassium 4.1 Chloride 104 Carbon Dioxide 31 H BUN 14 Creatinine 0.88 Glucose 92 Calcium 9.2 - ABG Interpretation ABG results: PT/INR, D-dimer PT 10.4 Seconds (9.4-12.1) 03/21/17 23:01 Consult Discharge Plan - Plan Referrals: NONE,PCP [Primary Care Provider] -
[2017-03-24] MEDS: Aztreonam 2,000 MG in D5% in Water (Mini-Bag+) 100 ML IVPB SCH ×2 (00:09→09:22)
[2017-03-24] MEDS: Vancomycin 1,500 MG in D5% in Water 250 ML IVPB SCH (00:10)
[2017-03-24] MEDS: *HR* HYDROcodone/Acet 5/325 mg TABLET PO PRN ×2 (05:11→14:17)
[2017-03-24] MEDS: *HR* Enoxaparin 40 MG/0.4 ML SYRINGE SQ SCH (05:11)
[2017-03-24 07:49] VITALS: BP 126/76
[2017-03-24] MEDS ORDERED: levoFLOXacin 750 MG TABLET PO SCH (09:00)
--- NOTE | 2017-03-24 12:09 | Discharge Summary ---
Date of Encounter: 03/24/17 Time of Encounter: 10:00 - Discharge Diagnosis (1) DVT prophylaxis Priority: Secondary Status: Acute (2) Elevated troponin I level Priority: Secondary Status: Acute (3) Healthcare-associated pneumonia Priority: Primary Status: Acute - Discharge Medications Prescriptions: GuaiFENesin/Dextromethorphan [Robitussin/Dm] 10 ml PO Q6HR #200 ml Ibuprofen 400 mg PO Q6H PRN #30 tablet PRN Reason: Pain levoFLOXacin [Levaquin] 750 mg PO DAILY #5 tab Home Medications: Escitalopram [Lexapro] 10 mg PO DAILY 03/22/17 [History] HydrOXYzine Pamoate [Vistaril] 50 mg PO Q8H PRN 03/22/17 [History] Omeprazole [PriLOSEC] 40 mg PO DAILY 03/22/17 [History] GuaiFENesin/Dextromethorphan [Robitussin/Dm] 10 ml PO Q6HR #200 ml 03/24/17 [Rx] Ibuprofen 400 mg PO Q6H PRN #30 tablet 03/24/17 [Rx] levoFLOXacin [Levaquin] 750 mg PO DAILY #5 tab 03/24/17 [Rx] Allergies/Adverse Reactions: 3 Allergy/AdvReac Type Severity Reaction Status Date / Time Penicillins Allergy Hives Verified 03/21/17 22:45 Date of admission: 03/22/17 01:03 Primary care physician: PCP NONE Consults: 03/22/17 01:58 Consult to Nurse Navigator [CONS] Routine Comment: 03/22/17 02:11 Consult to Nurse Navigator [CONS] Routine Comment: Discharging clinician: Paco Mayorga Anticipated date of discharge: 03/24/17 - Patient Status Disposition: Home, Self-Care Condition: Good Functional capacity at discharge: independent ambulation Overall status at discharge: patient is progressing back to baseline - Discharge Instructions Follow Up With: Hernan Mccord DO [Resident] - - Diet and Activity Activity: increase activity as tolerated Diet: advance to your usual diet Interval History: HPI: Mr. Mehta is a 41 year old male with prior medical history of recent hospitalization due to suspected endocarditis (after evaluation was not), seizures, and vegetation seen on heartfelt presents to [place] after several days of progressive cough and chest pain. He states the cough began first in the chest pain is only result of coughing. He describes his chest pain is sharp in character and located on his ribs on his left side that is exacerbated by coughing and not made better by anything. The cough has been productive of green sputum, but he reports that is its normal color. He reports having some fever/chills at home. His troponins were found to be elevated at presentation, though this is persistent from his last hospitalization. He denies having shortness of breath, exertional quality of chest pain, nausea/vomiting, abdominal pain. He denies diaphoresis or radiation of his chest pain. Hospital course: Mr. Mehta is a 41 year old male admitted for pneumonia. He was considered healthcare associated pneumonia treated with vanco and aztreonam. After treatment, his cough and shortness of breath has improved. Patient has no wheezing. Vital signs stable. Patient will discharge home today and continue by mouth Levaquin for further treatment. I saw and examined the patient today. He is awake alert. Complaining of mild lower chest pain upon cough. Vitals are stable. Patient is stable to discharge home, continue by mouth antibiotic, and follow-up with PCP as outpatient. - Time Spent with Patient Total time spent providing and/or coordinating discharge services: 25 minutes Less than 30 minutes - Constitutional Vitals: Temp Pulse Resp BP Pulse Ox 98.6 F 77 18 126/76 96 03/24/17 07:00 03/24/17 07:00 03/24/17 07:00 03/24/17 07:00 03/24/17 09:38 General appearance: Present: A&O X 3, pleasant, no acute distress, answers questions appropriately - Head Head exam: Present: atraumatic, normocephalic - Eye Eye exam: Present: PERRL, conjuntiva pink, sclera anicteric Pupils: Present: PERRL - Neck Neck exam general surgery: Present: supple, trachea midline. Absent: lymphadenopathy - Respiratory Respiratory exam: Present: CTAB. Absent: accessory muscle use, rales, rhonchi, wheezes - Cardiovascular Cardiovascular exam: Present: RRR, +S1, +S2. Absent: diastolic murmur, gallop, rubs, systolic murmur - GI/Abdominal GI/Abdominal exam: Present: normal bowel sounds, soft, no peritoneal signs. Absent: distended, tenderness - Extremities Exam Extremities exam: Present: warm, radial pulses palpable and symmetrical. Absent : calf tenderness, cyanotic, pedal edema - Neurological Exam Neurological exam: Present: CN II-XII intact, oriented X3, no focal deficits. Absent: pronater drift, facial droop, speech deficit - Skin Skin exam: Present: dry, intact
[2017-03-24] MEDS ORDERED: Aminoglycoside Consult 1 EACH MC ONE (14:42)
== END 2017-03-24 14:43 | disposition home or self-care (01) ==
LOC: EMEROO 22:14 → 2NENU 22:14 → SUATTDRO 03-22 01:03 → 2NENU 03-22 01:28
PROVIDERS: ADMIT Hospitalist; ATTEND Internal Medicine

== ENCOUNTER 2018-04-01 17:30 | Observation (INO) ==
[2018-04-01] MEDS ORDERED: Nitroglycerin 0.4 MG TAB.SUBL SL ONE (17:40)
--- NOTE | 2018-04-01 17:45 | Emergency Department Note ---
Disposition Clinical Impression: Unstable angina pectoris Disposition: Admitted As Inpatient Condition: Good Referrals: NONE,PCP [Non-Partnered Physician] - Forms: ED Satisfaction Letter Time of Disposition: 19:29 Chest Pain HPI - General Chief Complaint: ED Chest Pain Stated Complaint: Cp Time Seen by Provider: 04/01/18 17:34 Source: patient Mode of arrival: EMS Limitations: no limitations Vital Signs Reviewed: Yes Nursing Notes Reviewed: Yes - History of Present Illness HPI Narrative: Mr. Mehta is a 42-year-old value presents with chest had that began last night around 11 PM has been constant in nature since. He notes left-sided chest pain with associated nausea, cold sweats, and headache. He took to Tylenol this morning around 8:30 AM. Interns that he received for baby aspirin and to Nitro than improved his chest pain from 7/10 to 5/10. Pertinent past medical history of 2 MIs over one year ago. Also notes that they found the vegetation previously. Last LHC was over one year ago and he has not seen cardiology were followed up with a primary care provider. He is not on any medications currently. Severity scale (1-10): 5 - Related Data Home Medications Medication Instructions Recorded Confirmed Acetaminophen [Tylenol] 1,000 mg PO Q6HR PRN 07/07/17 07/07/17 Ammonium Lactate [Amlactin] 1 each TP BID PRN 07/07/17 07/07/17 Aspirin [Lo-Dose Aspirin EC] 81 mg PO DAILY 07/07/17 07/07/17 HydrOXYzine Pamoate [Vistaril] 50 mg PO BID 07/07/17 07/07/17 Metoprolol [Lopressor] 25 mg PO BID 07/07/17 07/07/17 Previous Rx's Medication Instructions Recorded Benzonatate [Tessalon] 100 mg PO TID PRN #15 capsule 07/17/17 Oseltamivir [Tamiflu] 75 mg PO BID #10 capsule 07/17/17 Allergies Allergy/AdvReac Type Severity Reaction Status Date / Time Penicillins Allergy Hives Verified 04/04/17 22:03 All systems ED: reviewed and negative except as stated. Review of Systems: As Per HPI Constitutional: Reports: chills. Denies: fever Eyes: Denies: vision change ENT ED: Denies: hearing loss Cardiovascular: Reports: chest pain. Denies: edema, syncope Respiratory: Denies: dyspnea Gastrointestinal: Reports: nausea. Denies: abdominal pain, vomiting Musculoskeletal: Denies: back pain, neck pain Integumentary: Denies: rash Neurological: Reports: headache Endocrine: Denies: fatigue Chest Pain PMH - Past Medical History Medical history: Reports: hyperlipidemia, hypertension, seizures, valvular heart disease, other Surgical history: Reports: appendectomy, orthopedic, other, sinus surgery Psychiatric history: Reports: anxiety, depression - Social History Smoking Status: Never smoker Alcohol use: Reports: occasionally Drug use: Reports: none Physical Exam - General Limitations: no limitations General appearance: alert - Head Head exam: atraumatic, normocephalic - Eye Eye exam: Present: normal appearance. Absent: scleral icterus, conjunctival injection - ENT ENT exam: normal exam, mucous membranes moist - Neck Neck exam: Present: normal inspection. Absent: tenderness - Chest Chest inspection: Present: normal inspection, symmetric chest wall rise - Respiratory Respiratory exam: Present: normal lung sounds bilaterally. Absent: respiratory distress, accessory muscle use - Cardiovascular Cardiovascular exam: Present: regular rate, normal rhythm, +S1, +S2 - Abdominal Exam Abdominal exam: Present: soft, Non-Tender. Absent: distention, guarding, rebound, rigidity - Extremities Exam Extremities exam: Present: normal inspection. Absent: tenderness, pedal edema - Back Exam Back exam: Present: normal inspection, full ROM - Neurological Exam Neurological exam: Present: alert, oriented X3 - Psychiatric Psychiatric exam: Present: normal affect, normal mood Course Vital Signs Temperature 98.8 F 04/01/18 17:39 Pulse Rate 78 04/01/18 17:39 Respiratory Rate 16 04/01/18 17:39 Blood Pressure 116/76 04/01/18 17:39 O2 Sat by Pulse Oximetry 100 04/01/18 17:39 Temperature 98.8 F 04/01/18 17:39 Pulse Rate 78 04/01/18 17:39 Respiratory Rate 16 04/01/18 17:39 Blood Pressure 116/76 04/01/18 17:39 O2 Sat by Pulse Oximetry 98 04/01/18 17:48 Oxygen Delivery Oxygen Delivery Room Air Chest Pain - MDM Narrative Medical decision making narrative: Patient PMHx of 2 MIs, CHF, past aortic vegetation. Significant family history with father having GA at 41yo and mother with CABG at 61yo. Atypical chest pain that started at rest, left sided chest, improved some with SL nitro. EKG normal. Labs pending. Patient will likely need admission for chest pain. CXR negative, Lab WNL. Pain still 5/10, along with headache. Will give tylenol and fentanyl. Spoke to Hospitalist, Dr. Randall at 19:25, patient accepted. - Differential Diagnosis Likely: atypical chest pain, chest pain - Medical Records Medical records reviewed: Yes I reviewed the patient's medical records. - Lab Data Lab results reviewed: Yes I reviewed the patient's lab results. Result diagrams: 04/01/18 17:57 04/01/18 17:57 Lab Results 04/01/18 04/01/18 04/01/18 Range/Units 17:57 17:57 17:57 WBC 9.3 (4.3-11.1) K/mcL RBC 5.12 (4.19-5.50) M/mcL Hgb 15.4 (12.9-16.9) g/dL Hct 45.7 (37.5-50.1) % MCV 89.3 (83.0-100.0) fL MCH 30.1 (28.0-33.3) pg MCHC 33.7 (31.6-35.5) g/dL RDW 11.8 (11.5-14.5) % Plt Count 295 (140-400) K/mcL MPV 10.7 (9.4-12.4) fL Immature Gran % 0.3 (0-4) % Seg Neutrophils % 70.3 % Lymphocytes % 21.6 % Monocytes % 6.5 % Eosinophils % 0.8 % Basophils % 0.5 % Neutrophils # 6.5 (1.6-8.9) K/mcL Lymphocytes # 2.0 (0.6-4.6) K/mcL Monocytes # 0.6 (0.0-1.3) K/mcL Eosinophils # 0.1 (0.0-0.6) K/mcL Basophils # 0.1 (0.0-0.2) K/mcL PT 12.1 (9.4-12.1) Seconds INR 1.1 APTT 38.3 H (26.0-36.0) Seconds Sodium 138 (136-145) mEq/L Potassium 3.6 (3.5-5.1) mEq/L Chloride 106 (98-107) mEq/L Carbon Dioxide 27 (23-29) mEq/L BUN 18 (6-20) mg/dL Creatinine 1.13 (0.70-1.30) mg/dL Est GFR ( Amer) > 60 (> 60) Est GFR (Non-Af Amer) > 60 (> 60) BUN/Creatinine Ratio 16 (6-26) Glucose 108 H (70-105) mg/dL Calculated Osmolality 288 (280-300) Calcium 9.3 (8.6-10.3) mg/dL Troponin I < 0.03 (< 0.04) ng/mL - Radiology Data Radiology results reviewed: Yes I reviewed the patient's radiology results. Chest X-Ray 04/01/18 17:40 IMPRESSION: No radiographic evidence of acute cardiopulmonary disease. D/ / Valdez Mejia / Valdez Mejia Interpreting Provider: Valdez Mejia - EKG Data EKG attestation: Yes I reviewed and interpreted this EKG. EKG shows normal: sinus rhythm, axis, intervals, QRS complexes, ST-T waves When compared to previous EKG there are: no significant changes Interpretation: normal EKG Heart Score - Score History: Highly Suspicious EKG: Normal Age: Less than 45 Risk Factors: Equal/Greater than 3 risk factor or history of atherosclerotic disease Troponin: Less than normal limit HEART Score Total: 4
--- NOTE | 2018-04-01 17:53 | Emergency Department Note ---
Disposition Clinical Impression: Unstable angina pectoris Disposition: Still a Patient Condition: Good Forms: ED Satisfaction Letter General Adult HPI - General Chief complaint: ED Chest Pain Stated complaint: Cp Time Seen by Provider: 04/01/18 17:34 Source: patient Mode of arrival: EMS Limitations: no limitations - History of Present Illness Pain Scale: 5 - Related Data Home Medications Medication Instructions Recorded Confirmed Acetaminophen [Tylenol] 1,000 mg PO Q6HR PRN 07/07/17 07/07/17 Ammonium Lactate [Amlactin] 1 each TP BID PRN 07/07/17 07/07/17 Aspirin [Lo-Dose Aspirin EC] 81 mg PO DAILY 07/07/17 07/07/17 HydrOXYzine Pamoate [Vistaril] 50 mg PO BID 07/07/17 07/07/17 Metoprolol [Lopressor] 25 mg PO BID 07/07/17 07/07/17 Previous Rx's Medication Instructions Recorded Benzonatate [Tessalon] 100 mg PO TID PRN #15 capsule 07/17/17 Oseltamivir [Tamiflu] 75 mg PO BID #10 capsule 07/17/17 Allergies Allergy/AdvReac Type Severity Reaction Status Date / Time Penicillins Allergy Hives Verified 04/04/17 22:03 Constitutional: Reports: chills. Denies: fever Eyes: Denies: vision change ENT ED: Denies: hearing loss Cardiovascular: Reports: chest pain. Denies: edema, syncope Respiratory: Denies: dyspnea Gastrointestinal: Reports: nausea. Denies: abdominal pain, vomiting Musculoskeletal: Denies: back pain, neck pain Integumentary: Denies: rash Neurological: Reports: headache Endocrine: Denies: fatigue Past Medical History - Past Medical History Medical history: Reports: hyperlipidemia, hypertension, seizures, valvular heart disease, other Surgical history: Reports: appendectomy, orthopedic, other, sinus surgery Psychiatric history: Reports: anxiety, depression - Social History Smoking Status: Never smoker Smokeless Tobacco Status: No Alcohol use: Reports: occasionally Drug use: Reports: none Physical Exam - General Limitations: no limitations General appearance: alert Course Vital Signs Temperature 98.8 F 04/01/18 17:39 Pulse Rate 78 04/01/18 17:39 Respiratory Rate 16 04/01/18 17:39 Blood Pressure 116/76 04/01/18 17:39 O2 Sat by Pulse Oximetry 100 04/01/18 17:39 Temperature 98.8 F 04/01/18 17:39 Pulse Rate 78 04/01/18 17:39 Respiratory Rate 16 04/01/18 17:39 Blood Pressure 116/76 04/01/18 17:39 O2 Sat by Pulse Oximetry 98 04/01/18 17:48 Oxygen Delivery Oxygen Delivery Room Air Attestation Statement - Attestation Attestation: I examined this patient and my medical decision-making was reviewed with the Resident Physician. I agree with the documented findings, disposition and treatment plan as described except to the extent set forth below. 42-year-old male who presented to the emergency of for chest pain. Started just prior to arrival when he was sitting at home. Associated with nausea and diaphoresis. [place] slightly short of breath. Is no significant documented history of CAD. He had a heart catheter done over a year ago he states that only showed a 50% blockage but did not require any stents. He received 2 nitroglycerin in route which helped relieve some of his pain. He still rating his pain a 5 out of 10. Left anterior chest sharp in nature. His vitals otherwise stable. He looks well this time.
[2018-04-01 18:16] LABS: Basophils # 0.1 K/mcL (0.0-0.2); Basophils % 0.5 %; Eosinophils # 0.1 K/mcL (0.0-0.6); Eosinophils % 0.8 %; Hematocrit 45.7 % (37.5-50.1); Hemoglobin 15.4 g/dL (12.9-16.9); Immature Granulocytes % 0.3 % (0-4); Lymphocytes % 21.6 %; Mean Corpuscular HGB Conc 33.7 g/dL (31.6-35.5); Mean Corpuscular Hemoglobin 30.1 pg (28.0-33.3); Mean Corpuscular Volume 89.3 fL (83.0-100.0); Mean Platelet Volume 10.7 fL (9.4-12.4); Monocytes # 0.6 K/mcL (0.0-1.3); Monocytes % 6.5 %; Neutrophils # 6.5 K/mcL (1.6-8.9); Platelet Count 295 K/mcL (140-400); Red Blood Count 5.12 M/mcL (4.19-5.50); Red Cell Distribution Width 11.8 % (11.5-14.5); Segmented Neutrophils % 70.3 %
[2018-04-01 18:22] LABS: INR 1.1; Prothrombin Time 12.1 Seconds (9.4-12.1)
[2018-04-01 18:24] LABS: Activated Partial Thrombo Time 38.3 Seconds (26.0-36.0)
[2018-04-01 18:42] LABS: BUN/Creatinine Ratio 16 (6-26); Blood Urea Nitrogen 18 mg/dL (6-20); Calcium 9.3 mg/dL (8.6-10.3); Carbon Dioxide 27 mEq/L (23-29); Chloride 106 mEq/L (98-107); Glucose 108 mg/dL (70-105); Osmolality,Calculated 288 (280-300); Potassium 3.6 mEq/L (3.5-5.1); Sodium 138 mEq/L (136-145); Troponin I < 0.03 ng/mL (< 0.04); eGFR For Non-African Americans > 60 (> 60)
[2018-04-01] MEDS ORDERED: *HR* FentaNYL (PF) 100 MCG/2 ML VIAL IVP ONE (18:45)
--- NOTE | 2018-04-01 21:18 | Internal Med History&Physical ---
Date of Encounter: 04/02/18 Time of Encounter: 21:40 Internal Medicine - H&P: HPI Chief complaint: Chest Pain Admitted From: Emergency Dept Plans for Post Hospital Care: Home History of present illness: Mr. Mehta is a 42 year old male Patient presented to the emergency room after experiencing chest pain that began at 11 PM the night prior to presentation. He says at the time he was sitting on the couch watching TV. The pain does not radiate, is constant, left- sided and is associated with nausea cold sweats and headache. He tried tylenol at home but had no relief. He has a history of 2 previous MIs over a year ago, aortic valve vegetation, IV drug use and congestive heart failure. He denies other medical problems. He denies recent drug use, alcohol use and tobacco use. In the emergency room, he has received nitroglycerin and aspirin which has improved his pain a little. Chest x-ray showed no acute cardiopulmonary disease , CBC and BMP were both within normal limits. EKG showed normal sinus rhythm with no ST changes. Troponin was undetectable. He has had workup for chest pain in the past most recently in June of last year. He also had a stress test about a year ago which was negative for ischemia. At that time he had elevated troponins and was found to have an aortic valve vegetation for which he took 5 days of antibiotics for, but it was not thought to be infectious. He does not follow with cardiology nor primary care. He does not take any medications at home. Currently patient states he still has some chest pain, but his main complaint is headache. He denies diarrhea, constipation, abdominal pain and shortness of breath. Past Med Surg Social Fam HX - Past Medical History Medical history: hyperlipidemia, hypertension, seizures, valvular heart disease , other Additional medical history: SYNCOPE. AORTIC VALVE VEGETATION. DEPRESSION Psychiatric history: anxiety, depression - Past Surgical History Surgical History: appendectomy, orthopedic, other, sinus surgery Additional surgical history: Right shoulder surgery, NASAL SX - Social History Smoking Status: Never smoker Smokeless Tobacco Status: No Alcohol use: occasionally Drug use: none - Family History Father Living Status: Hx Family Cardiac Disorders: Yes (bypass x3) Hx Family Respiratory Disorders: Yes (COPD) Mother Hx Family Cardiac Disorders: Yes (bypass x4 at approximately 61 years of age. ) Hx Family Endocrine Disorder: Yes (DM) Internal Medicine - H&P: Meds Acetaminophen [Tylenol] 1,000 mg PO Q6HR PRN 07/07/17 [History] Ammonium Lactate [Amlactin] 1 each TP BID PRN 07/07/17 [History] Aspirin [Lo-Dose Aspirin EC] 81 mg PO DAILY 07/07/17 [History] HydrOXYzine Pamoate [Vistaril] 50 mg PO BID 07/07/17 [History] Metoprolol [Lopressor] 25 mg PO BID 07/07/17 [History] Benzonatate [Tessalon] 100 mg PO TID PRN #15 capsule 07/17/17 [Rx] Oseltamivir [Tamiflu] 75 mg PO BID #10 capsule 07/17/17 [Rx] 3 Allergy/AdvReac Type Severity Reaction Status Date / Time Penicillins Allergy Hives Verified 04/04/17 22:03 All Systems PM: A 10-system review of systems was performed and is negative for pertinent findings except as documented above in the HPI. - Constitutional Vitals: Temp Pulse Resp BP Pulse Ox 98.8 F 78 16 115/80 99 04/01/18 17:39 04/01/18 19:39 04/01/18 19:39 04/01/18 19:39 04/01/18 19:39 General appearance: Present: cooperative, A&O X 3, pleasant, no acute distress, answers questions appropriately Exam: As above - Head Head exam: Present: normal inspection - Eye Eye exam: Present: EOMI, normal appearance - Neck Neck exam general surgery: Present: full ROM - Respiratory Respiratory exam: Present: CTAB. Absent: chest wall tenderness, respiratory distress, wheezes - Cardiovascular Cardiovascular exam: Present: RRR. Absent: diastolic murmur, systolic murmur - GI/Abdominal GI/Abdominal exam: Present: normal bowel sounds, soft. Absent: tenderness - Extremities Exam Extremities exam: Present: warm, radial pulses palpable and symmetrical. Absent : calf tenderness, pedal edema, tenderness - Neurological Exam Neurological exam: Present: no focal deficits, strengths equal and symetr throughout. Absent: motor sensory deficit, facial droop, speech deficit - Skin Skin exam: Present: dry, normal color, warm Internal Med - H&P Results - Labs CBC & Chem 7: 04/02/18 06:16 04/02/18 06:16 - Assessment and plan (1) Chest pain Current Visit: No Status: Acute Assessment and plan: Troponins undetectable thus far, chest x-ray showed no acute cardiopulmonary abnormalities. EKG was normal sinus rhythm with no ST changes. Patient still has some left-sided chest pain. Nitroglycerin may be exacerbating his pain, Tylenol given in the emergency room. phototypesetting equipment monitor Continue to trend troponins Consider additional nitroglycerin or even nitroglycerin drip if chest pain continues Patient's last echocardiogram was in June of last year, but considering the aortic valve vegetation will order echo for the morning Patient's stress test was last February, can consider repeating this as well. Qualifiers: Chest pain type: other chest pain Qualified Code(s): R07.89 - Other chest pain; R07.8 - Other chest pain (2) Headache Current Visit: Yes Status: Acute Assessment and plan: Tylenol given in the emergency room, patient also received a dose of nitroglycerin which may contribute to headache. Continue to monitor Continue Tylenol, motrin for pain. Will try to avoid opioid pain medications considering his drug history. Qualifiers: Qualified Code(s): R51 - Headache (3) Aortic valve vegetation Current Visit: No Status: Acute Assessment and plan: Last summer patient was found to have an aortic valve vegetation, and at the time there was no indication for surgical intervention or repair and blood cultures exhibited no growth. There is no evidence of embolic events or heart failure at that time. Repeat echo in the morning as patient has not had follow-up since last June. (4) Substance abuse Current Visit: No Status: Acute Assessment and plan: History of IV drug use. Patient denies recent history. Continue to monitor (5) DVT prophylaxis Current Visit: No Status: Acute Assessment and plan: Heparin subcutaneously - Time Spent With Patient Total time spent is greater than 50% in coordination of care (as documented) at patient's floor/unit and/or counseling patient: Greater than 35 minutes
[2018-04-01] MEDS ORDERED: Naloxone 0.4 MG/ML INJ IVP PRN (21:53)
[2018-04-01] MEDS ORDERED: Ibuprofen 400 MG TABLET PO PRN (22:24)
[2018-04-02] MEDS: *HR* Heparin 5,000 UNIT/ML VIAL SQ SCH ×2 (06:11→18:04)
[2018-04-02 06:40] LABS: Hematocrit 44.8 % (37.5-50.1); Hemoglobin 14.8 g/dL (12.9-16.9); Mean Corpuscular Hemoglobin 29.2 pg (28.0-33.3); Mean Corpuscular Volume 88.5 fL (83.0-100.0); Mean Platelet Volume 10.5 fL (9.4-12.4); Platelet Count 277 K/mcL (140-400); Red Blood Count 5.06 M/mcL (4.19-5.50); Red Cell Distribution Width 12.1 % (11.5-14.5)
[2018-04-02 07:02] LABS: BUN/Creatinine Ratio 14 (6-26); Blood Urea Nitrogen 17 mg/dL (6-20); Calcium 9.3 mg/dL (8.6-10.3); Carbon Dioxide 29 mEq/L (23-29); Chloride 106 mEq/L (98-107); Glucose 104 mg/dL (70-105); Osmolality,Calculated 294 (280-300); Potassium 3.8 mEq/L (3.5-5.1); Sodium 141 mEq/L (136-145); eGFR For Non-African Americans > 60 (> 60)
[2018-04-02] MEDS: traMADol 50 MG TABLET PO PRN ×2 (08:30→18:07)
--- NOTE | 2018-04-02 12:50 | Internal Med Progress Note ---
Hospitalist Progress Note - Encounter Date of Encounter: 04/02/18 Time of Encounter: 12:50 - Subjective Interval History: Pt initially stated he takes his home medication but then later stated he had not been taking his meds. He states he is on ASA and Lopressor and that is all he is on but has not taken them for months. Pt denies fever chills, N/V or diarrhea. Reporting CP and GARCIA this morning. He does not have a nitro paste on. - Exam Vitals: Temp Pulse Resp BP Pulse Ox 98.0 F 80 16 117/73 98 04/02/18 11:55 04/02/18 11:55 04/02/18 11:55 04/02/18 11:55 04/02/18 11:55 Exam: General appearance: Present: cooperative, A&O X 3, pleasant, no acute distress, answers questions appropriately Exam: As above - Head Head exam: Present: normal inspection - Eye Eye exam: Present: EOMI, normal appearance - Neck Neck exam general surgery: Present: full ROM - Respiratory Respiratory exam: Present: CTAB. Absent: chest wall tenderness, respiratory distress, wheezes - Cardiovascular Cardiovascular exam: Present: RRR. Absent: diastolic murmur, systolic murmur - GI/Abdominal GI/Abdominal exam: Present: normal bowel sounds, soft. Absent: tenderness - Extremities Exam Extremities exam: Present: warm, radial pulses palpable and symmetrical. Absent : calf tenderness, pedal edema, tenderness - Neurological Exam Neurological exam: Present: no focal deficits, strengths equal and symetr throughout. Absent: motor sensory deficit, facial droop, speech deficit - Skin Skin exam: Present: dry, normal color, warm - Assessment and Plan (1) Chest pain Current Visit: No Status: Acute Assessment and Plan: Pt admits to medical non-compliance to his home medications. [facility] 06/2017 showed stable one vessel disease with only 15% stenosis of LAD, other vessels where noted to angiographically free of disease Troponin neg times 2. EKG showed normal sinus rhythm with no ST changes. Chest x ray showed no acute cardiopulmonary disease. Will check exercise stress and echo prior to discharge. Will also check D dimer. Pt requesting pain medication. [facility] 07/07/2017 Impressions: There is stable minimal one vessel coronary artery disease. The left ventricle is normal and has low normal contractility EF 50% Recommendations: Optimal medical therapy of patient's disease. Aggressive risk factor modification. Echo 06/14/17 Impressions: LVEF 45-50%. Low normal to mildly reduced systolic function. Normal right ventricular structure and function. Trileaflet aortic valve. No obvious vegetation. No obvious evidence of endocarditis on this study. Left Ventricular Wall Motion: Rest Echo Findings All wall segments showed normal motion. (2) Aortic valve vegetation Current Visit: No Status: Acute Assessment and Plan: Last summer patient was found to have an aortic valve vegetation, and at the time there was no indication for surgical intervention or repair and blood cultures exhibited no growth. There is no evidence of embolic events or heart failure at that time. Repeat echo in the morning as patient has not had follow-up since last June. (3) Polysubstance abuse Current Visit: No Status: Chronic Assessment and Plan: History of IV drug use. Patient denies recent history. Will check urine drug screen. (4) Headache Current Visit: Yes Status: Acute Assessment and Plan: Will treat with GARCIA cocktail, Toradol, benadryl and compazine. (5) Medical non-compliance Current Visit: Yes Status: Acute Assessment and Plan: Pt admits to not taking his medications as prescribed. DVT Prophylaxis: Heparin - Summary of Assessment and Plan Summary of Assessment and Plan: Mr. Mehta is a 42 year old male Patient presented to the emergency room after experiencing chest pain that began at 11 PM the night prior to presentation. He says at the time he was sitting on the couch watching TV. The pain does not radiate, is constant, left- sided and is associated with nausea cold sweats and headache. He tried tylenol at home but had no relief. - Time Spent with Patient Total time spent is greater than 50% in coordination of care (as documented) at patient's floor/unit and/or counseling patient: less than 15 minutes Internal Medicine: Result - Labs CBC & Chem 7: 04/02/18 06:16 04/02/18 06:16 Labs: Short CBC 04/02/18 Range/Units 06:16 WBC 9.6 (4.3-11.1) K/mcL Hgb 14.8 (12.9-16.9) g/dL Hct 44.8 (37.5-50.1) % Plt Count 277 (140-400) K/mcL BMP 04/02/18 06:16 Sodium 141 Potassium 3.8 Chloride 106 Carbon Dioxide 29 BUN 17 Creatinine 1.22 Glucose 104 Calcium 9.3 Cardiac Enzymes 04/01/18 04/02/18 Range/Units 23:43 06:16 Troponin I < 0.03 < 0.03 (< 0.04) ng/mL - ABG Interpretation ABG results: PT/INR, D-dimer PT 12.1 Seconds (9.4-12.1) 04/01/18 17:57 Consult Discharge Plan - Plan Referrals: NONE,PCP [Primary Care Provider] - (1) Chest pain Qualifiers: Chest pain type: other chest pain Qualified Code(s): R07.89 - Other chest pain; R07.8 - Other chest pain (4) Headache Qualifiers: Qualified Code(s): R51 - Headache
[2018-04-02] MEDS ORDERED: Nitroglycerin 0.4 MG TAB.SUBL SL PRN (13:56)
[2018-04-02] MEDS ORDERED: Ketorolac 15 MG/ML VIAL IM ONE (13:57)
[2018-04-02] MEDS ORDERED: Prochlorperazine 10 MG/2 ML VIAL IVP PRN (13:58)
[2018-04-02 18:49] LABS: Amphetamine Screen,Urine Positive ng/mL (Cutoff=1000); Barbiturate Screen,Urine Negative ng/mL (Cutoff=200); Benzodiazepines Screen,Urine Negative ng/mL (Cutoff=200); Cannabinoid Screen,Urine Negative ng/mL (Cutoff = 50); Cocaine Screen,Urine Negative ng/mL (Cutoff= 300); Opiate Screen,Urine Negative ng/mL (Cutoff=300); Phencyclidine Screen,Urine Negative ng/mL (Cutoff=25)
[2018-04-03] MEDS: *HR* Heparin 5,000 UNIT/ML VIAL SQ SCH (06:02)
[2018-04-03] MEDS ORDERED: Regadenoson 0.4 MG/5 ML SYRINGE IVP ONE (08:55)
[2018-04-03] MEDS ORDERED: Aspirin 81 MG TAB.CHEW PO SCH (09:00)
[2018-04-03 11:22] VITALS: BP 111/70
--- NOTE | 2018-04-03 14:23 | Discharge Summary ---
- NOTES TO OUTPATIENT PROVIDER Notes to Outpatient Provider: PCP in 5 to 7 days Orders not resulted at time of discharge: Pending orders 04/03/18 06:51 NM conner perf SPECT multi [NM] Routine Date of Encounter: 04/03/18 Time of Encounter: 14:18 - Discharge Diagnosis (1) Chest pain Priority: Primary Status: Acute Assessment and Plan: Pt admits to medical non-compliance to his home medications. [facility] 06/2017 showed stable one vessel disease with only 15% stenosis of LAD, other vessels where noted to angiographically free of disease Troponin neg times 2. EKG showed normal sinus rhythm with no ST changes. Chest x ray showed no acute cardiopulmonary disease. Nuclear stress neg and echo results below and nothing acute D dimer < 500 so will not pursue CTA chest. Pt requesting pain medication frequently. UDS positive for meth. Pt admits to snorting meth but was not forthcoming about when he last snorted it. States may be a week or a few days ago. Echo EV/EV echocardiogram Impressions: LVEF 45-50%. Low normal to mildly reduced LV systolic function. Indeterminate diastolic function. Normal right ventricular structure and function. No significant valvular dysfunction. No pulmonary hypertension. Valvular vegetation not appreciated on this study. Left Ventricular Wall Motion: Rest Echo Findings All wall segments showed normal motion. Nuclear stress test. Impression: Small sized, mild intensity apical perfusion defect seen more prominently on stress than rest. While findings may represent artifact, mild ischemia cannot be definitively excluded. Low level exercise/ pharmacologic stress ECG is negative for ischemia at level of heart rate achieved. Gated EF = 60%. Findings communicated to ordering provider. Qualifiers: Chest pain type: other chest pain Qualified Code(s): R07.89 - Other chest pain; R07.8 - Other chest pain (2) Aortic valve vegetation Priority: Secondary Status: Acute (3) Polysubstance abuse Priority: Secondary Status: Chronic Assessment and Plan: Pt admits to snorting meth. Cessation strongly advised. (4) Headache Priority: Secondary Status: Acute Assessment and Plan: Resolved after GARCIA cocktail. Qualifiers: Qualified Code(s): R51 - Headache (5) Medical non-compliance Priority: Secondary Status: Acute Assessment and Plan: Pt admits to not taking his home meds. Gives conflicting report. Initially stated to ED pharmacy he is not on any meds, then told me he has been taking metoprolol and ASA consistently, then said he had not taken any of his medications for months. Originally stated he has had Hospital course: Mr. Mehta is a 42 year old male Patient presented to the emergency room after experiencing chest pain that began at 11 PM the night prior to presentation. He says at the time he was sitting on the couch watching TV. The pain does not radiate, is constant, left-sided and is associated with nausea cold sweats and headache. He tried tylenol at home but had no relief. He denies denies CP, SOB, palpitations, diaphoresis, N/V, or diarrhea. He denies fever or chills. Discharge discussed with: patient - Time Spent with Patient Total time spent providing and/or coordinating discharge services: Greater than 30 minutes - Discharge Medications Home Medications: No Known Home Drugs 04/02/18 [History] Allergies/Adverse Reactions: 3 Allergy/AdvReac Type Severity Reaction Status Date / Time Penicillins Allergy Hives Verified 04/04/17 22:03 Date of admission: 04/01/18 20:48 Primary care physician: PCP NONE Discharging clinician: Renae Allen Anticipated date of discharge: 04/03/18 - Constitutional Vitals: Temp Pulse Resp BP Pulse Ox 97.9 F 78 15 111/70 97 04/03/18 11:22 04/03/18 11:22 04/03/18 11:22 04/03/18 11:22 04/03/18 11:22 General appearance: Present: cooperative, A&O X 3, pleasant, no acute distress, answers questions appropriately Exam: General appearance: Present: cooperative, A&O X 3, pleasant, no acute distress, answers questions appropriately Exam: As above - Head Head exam: Present: normal inspection - Eye Eye exam: Present: EOMI, normal appearance - Neck Neck exam general surgery: Present: full ROM - Respiratory Respiratory exam: Present: CTAB. Absent: chest wall tenderness, respiratory distress, wheezes - Cardiovascular Cardiovascular exam: Present: RRR. Absent: diastolic murmur, systolic murmur - GI/Abdominal GI/Abdominal exam: Present: normal bowel sounds, soft. Absent: tenderness - Extremities Exam Extremities exam: Present: warm, radial pulses palpable and symmetrical. Absent : calf tenderness, pedal edema, tenderness - Neurological Exam Neurological exam: Present: no focal deficits, strengths equal and symetr throughout. Absent: motor sensory deficit, facial droop, speech deficit - Skin Skin exam: Present: dry, normal color, warm - Head Head exam: Present: atraumatic, normocephalic - Eye Eye exam: Present: PERRL, conjuntiva pink, sclera anicteric Pupils: Present: PERRL - Neck Neck exam general surgery: Present: supple, trachea midline. Absent: lymphadenopathy - Respiratory Respiratory exam: Present: CTAB. Absent: accessory muscle use, rales, rhonchi, wheezes - Cardiovascular Cardiovascular exam: Present: RRR, +S1, +S2. Absent: diastolic murmur, gallop, rubs, systolic murmur - GI/Abdominal GI/Abdominal exam: Present: normal bowel sounds, soft, no peritoneal signs. Absent: distended, tenderness - Extremities Exam Extremities exam: Present: warm, radial pulses palpable and symmetrical. Absent : calf tenderness, cyanotic, pedal edema - Neurological Exam Neurological exam: Present: CN II-XII intact, oriented X3, no focal deficits. Absent: pronater drift, facial droop, speech deficit - Skin Skin exam: Present: dry, intact - Patient Status Disposition: Home, Self-Care Condition: Good Overall status at discharge: patient is back to baseline - Discharge Instructions Instructions: Chest Pain (DC) Follow Up With: NONE,PCP [Primary Care Provider] - (Please call [phone] to set up a PCP appt.) - Diet and Activity Activity: increase activity as tolerated Diet: advance to your usual diet
--- NOTE | 2018-04-03 17:31 | Electrocardiograph Report ---
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
== END 2018-04-03 15:17 | disposition home or self-care (01) ==
LOC: EMEROOARM 17:30 → 3BNU 17:30
PROVIDERS: ADMIT Pediatrics; ATTEND Pediatrics

== ENCOUNTER 2019-04-17 14:55 | Observation (INO) ==
[2019-04-17] MEDS ORDERED: 0.9 % Sodium Chloride 1,000 ML IVC ONE (15:19)
[2019-04-17] MEDS ORDERED: Aspirin 325 MG TABLET PO ONE (15:19)
[2019-04-17] MEDS ORDERED: *HR* LORazepam 1 MG TABLET PO ONE (15:19)
[2019-04-17 15:43] LABS: Basophils # 0.1 K/mcL (0.0-0.2); Basophils % 0.7 %; Eosinophils # 0.1 K/mcL (0.0-0.6); Hematocrit 41.8 % (37.5-50.1); Hemoglobin 13.9 g/dL (12.9-16.9); Immature Granulocytes % 0.3 % (0-4); Lymphocytes # 2.6 K/mcL (0.6-4.6); Lymphocytes % 34.3 %; Mean Corpuscular HGB Conc 33.3 g/dL (31.6-35.5); Mean Corpuscular Hemoglobin 29.1 pg (28.0-33.3); Mean Corpuscular Volume 87.6 fL (83.0-100.0); Mean Platelet Volume 10.5 fL (9.4-12.4); Monocytes # 0.6 K/mcL (0.0-1.3); Monocytes % 7.6 %; Neutrophils # 4.3 K/mcL (1.6-8.9); Platelet Count 306 K/mcL (140-400); Red Blood Count 4.77 M/mcL (4.19-5.50); Segmented Neutrophils % 56.1 %; White Blood Count 7.7 K/mcL (4.3-11.1)
[2019-04-17 16:04] LABS: BUN/Creatinine Ratio 13 (6-26); Blood Urea Nitrogen 15 mg/dL (6-20); Calcium 9.2 mg/dL (8.6-10.3); Carbon Dioxide 28 mEq/L (23-29); Chloride 104 mEq/L (98-107); Glucose 107 mg/dL (70-105); Osmolality,Calculated 289 (280-300); Potassium 3.9 mEq/L (3.5-5.1); Sodium 139 mEq/L (136-145); eGFR For African Americans > 60 (> 60); eGFR For Non-African Americans > 60 (> 60)
[2019-04-17 16:05] LABS: Troponin I < 0.03 ng/mL (< 0.04)
[2019-04-17 19:35] LABS: Amphetamine Screen,Urine Positive ng/mL (Cutoff=1000); Barbiturate Screen,Urine Negative ng/mL (Cutoff=200); Benzodiazepines Screen,Urine Negative ng/mL (Cutoff=200); Cannabinoid Screen,Urine Negative ng/mL (Cutoff = 50); Cocaine Screen,Urine Negative ng/mL (Cutoff= 300); Opiate Screen,Urine Negative ng/mL (Cutoff=300); Phencyclidine Screen,Urine Negative ng/mL (Cutoff=25)
[2019-04-18 08:08] VITALS: BP 109/63
== END 2019-04-18 10:44 | disposition home or self-care (01) ==
LOC: 3BNU 14:55 → EMEROOARM 14:55 → SUATTDRO 17:50 → 3BNU 18:48
PROVIDERS: ADMIT Internal Medicine; ATTEND Pharmacist